=== PATIENT | female | born 1945 | race Caucasian/White ===

== ENCOUNTER 2017-01-10 17:26 | Inpatient (IN) ==
[2017-01-10] MEDS ORDERED: Pantoprazole 40 MG VIAL IVP ONE (19:05)
[2017-01-10] MEDS ORDERED: *HR* HYDROmorphone (PF) 1 MG/ML SYRINGE IVP ONE (19:05)
[2017-01-10] MEDS ORDERED: 0.9 % Sodium Chloride 1,000 ML IVC ONE (19:05)
[2017-01-10] MEDS ORDERED: Ondansetron 4 MG/2 ML VIAL IVP ONE (19:05)
[2017-01-10 19:50] LABS: Basophils # 0.1 K/mcL (0.0-0.2); Basophils % 0.6 %; Eosinophils % 0.1 %; Hematocrit 41.1 % (35.3-44.9); Hemoglobin 13.5 g/dL (11.5-15.4); Immature Granulocytes % 0.7 % (0-4); Lymphocytes # 1.4 K/mcL (0.6-4.6); Lymphocytes % 11.9 %; Mean Corpuscular HGB Conc 32.8 g/dL (31.6-35.5); Mean Corpuscular Hemoglobin 28.5 pg (28.0-33.3); Mean Corpuscular Volume 86.9 fL (83.0-100.0); Mean Platelet Volume 9.6 fL (9.4-12.4); Monocytes # 0.6 K/mcL (0.0-1.3); Monocytes % 4.8 %; Neutrophils # 9.5 K/mcL (1.6-8.9); Platelet Count 354 K/mcL (140-400); Red Blood Count 4.73 M/mcL (3.82-4.97); Red Cell Distribution Width 12.8 % (11.5-14.5); Segmented Neutrophils % 81.9 %
[2017-01-10 20:05] LABS: Alanine Aminotransferase 35 Units/L (0-55); Albumin 3.8 g/dL (3.5-5.0); Alkaline Phosphatase 78 Units/L (38-126); Amylase 23 Units/L (25-125); Aspartate Amino Transferase 35 Units/L (5-34); BUN/Creatinine Ratio 18 (6-26); Bilirubin,Direct 0.2 mg/dL (0.0-0.5); Bilirubin,Indirect 0.4 mg/dL (0.0-1.2); Bilirubin,Total 0.6 mg/dL (0.2-1.2); Blood Urea Nitrogen 19 mg/dL (7-20); Calcium 10.1 mg/dL (8.6-10.8); Carbon Dioxide 23 mEq/L (19-29); Chloride 102 mEq/L (98-109); Glucose 145 mg/dL (70-99); Lipase 7 Units/L (8-78); Osmolality,Calculated 293 (280-300); Potassium 4.2 mEq/L (3.5-4.5); Sodium 139 mEq/L (136-145); Total Protein 7.8 g/dL (6.0-8.3); eGFR For African Americans > 60 (> 60); eGFR For Non-African Americans 51 (> 60)
--- NOTE | 2017-01-10 20:15 | Emergency Department Note ---
Disposition Clinical Impression: Small bowel obstruction Abdominal pain Qualifiers: Abdominal location: lower abdomen, unspecified Qualified Code(s): R10.30 - Lower abdominal pain, unspecified Nausea and vomiting Qualifiers: Vomiting type: unspecified Vomiting Intractability: non-intractable Qualified Code(s): R11.2 - Nausea with vomiting, unspecified Disposition: Admitted As Inpatient Condition: Fair Time of Disposition: 20:48 Abdominal Pain HPI - General Chief Complaint: ED Abdominal Pain Stated Complaint: ABD pain Vomiting Time Seen by Provider: 01/10/17 18:18 Source: patient Nursing Notes Reviewed: Yes Vital Signs Reviewed: Yes - History of Present Illness HPI Narrative: Patient is 71-year-old female complains of abdominal pain across her lower abdomen feels. Patient also complains of nausea and vomiting of acute onset without diarrhea. Patient states his symptoms started 2 days ago at a 4 AM in the morning. Patient states her symptoms resolved and she was fine one day ago. Then symptoms return this morning at 0500 hrs. and has continued since. Denies any hematemesis or melena or hematochezia. Patient does admit to having bloody stools in the past secondary to having a rectal cancer and is being followed by oncology and her PCP. Patient states she had a colonoscopy to the lateral part of last year with no issues. Patient states he has was not resected. Patient has a history of cholecystectomy, patient is unsure whether she has an appendix. Patient denies fevers, chills. Patient states that when the chest pain gets really bad it extends all the anterior chest. Patient also has a history of stonepassed without surgical intervention. Patient denies dysuria Pain Scale: 9 - Related Data Home Medications Medication Instructions Recorded Confirmed Amlodipine [Amlodipine Besylate] 10 mg PO DAILY 08/31/15 11/18/16 Aspirin Enteric Coated [Aspirin EC] 81 mg PO DAILY 08/31/15 11/18/16 Gabapentin [Neurontin] 100 mg PO HS 08/31/15 11/18/16 Lisinopril [Zestril] 40 mg PO HS 08/31/15 11/18/16 Omeprazole [PriLOSEC] 20 mg PO BID 08/31/15 11/18/16 Calcium Carbonate [Calcium] 1,000 mg PO DAILY 05/03/16 11/18/16 Ergocalciferol (VITAMIN D2) 800 unit PO DAILY 05/03/16 11/18/16 [Vitamin D] Ranitidine HCl [Zantac] 150 mg PO HS 05/03/16 11/18/16 Levothyroxine [Synthroid] 25 mcg PO QAM 06/23/16 11/18/16 Oxybutynin Chloride [Ditropan Xl] 10 mg PO HS 06/23/16 11/18/16 Bisoprolol/HCTZ 06/19.25 [Ziac 1 each PO DAILY 11/18/16 11/18/16 106.25] Previous Rx's Medication Instructions Recorded Atorvastatin [Lipitor] 40 mg PO HS #30 tablet 05/04/16 Ferrous Sulfate 325 mg PO BIDWM #60 tablet 06/12/16 Raloxifene [Evista] 60 mg PO DAILY #30 tablet 11/14/16 Allergies Allergy/AdvReac Type Severity Reaction Status Date / Time latex Allergy Hives Verified 11/18/16 09:35 All systems ED: reviewed and negative except as stated. Constitutional: Denies: fever, chills Eyes: Denies: eye pain, vision change ENT ED: Denies: congestion, dysphagia Cardiovascular: Reports: chest pain. Denies: palpitations, syncope Respiratory: Denies: cough, dyspnea, wheezes Gastrointestinal: Reports: abdominal pain, nausea, vomiting. Denies: diarrhea Genitourinary: Denies: urgency, dysuria Musculoskeletal: Denies: back pain, neck pain Neurological: Denies: headache, weakness Psychiatric: Denies: anxiety Abdominal Pain PMH - Past Medical History Medical history: Reports: cancer, hypertension Female Surgical History: Reports: cholecystectomy, hysterectomy [employer] history: Reports: other Psychiatric history: Reports: no psych history - Social History Smoking status: Never smoker Alcohol use: Reports: none Drug use: Reports: none Physical Exam - General Limitations: no limitations General appearance: alert - Head Head exam: atraumatic, normocephalic, normal inspection - Eye Eye exam: Present: normal appearance, PERRL, EOMI. Absent: scleral icterus, conjunctival injection, nystagmus - ENT ENT exam: normal exam, normal oropharynx, mucous membranes moist - Neck Neck exam: Present: normal inspection, full ROM, trachea midline. Absent: tenderness, lymphadenopathy - Chest Chest inspection: Present: normal inspection, symmetric chest wall rise. Absent : tenderness - Respiratory Respiratory exam: Present: normal lung sounds bilaterally. Absent: respiratory distress, wheezes - Cardiovascular Cardiovascular exam: Present: regular rate, normal rhythm - Abdominal Exam Abdominal exam: Present: soft, tenderness Abdominal tenderness: Present: RLQ, LLQ, moderate - Extremities Exam Extremities exam: Present: normal inspection, full ROM, normal capillary refill. Absent: tenderness, pedal edema - Back Exam Back exam: Present: normal inspection, full ROM, tenderness, CVA tenderness (R) . Absent: CVA tenderness (L), muscle spasm - Neurological Exam Neurological exam: Present: alert, oriented X3, CN II-XII intact - Psychiatric Psychiatric exam: Present: normal affect, normal mood - Skin Skin exam: Present: warm, dry, intact, normal color. Absent: pallor, mottled Course - Reevaluation(s) Reevaluation #1: After considering patient's history and exam. Patient is concerning for possible AAA, appendicitis, bowel obstruction secondary to possible neoplasm with history of anal canal cancer, patient also has symptoms of intermittent chest pain as well concerning for ACS/AZ, PE. Patient is currently at risk for coagulopathy given history of cancer but PE is low my differential with other diagnoses to consider that are more likely. Ordered CBC, BMP, chest x-ray, lipase, LFTs, CT abdomen and pelvis without contrast, IV normal saline, Zofran for nausea, 1 mg of Dilaudid for pain. Time: 19:20 Reevaluation #2: Patient well. Patient setting down to CT scan Time: 20:00 Reevaluation #3: Patient CT scan shows small bowel obstruction. We will consult surgery Time: 20:20 Additional Reevaluation(s): NG tube to wall suction was ordered. Patient accepted for admission to hospital. We will have surgical follow-up - Consultations Consultation #1: Dr. Zamora of Gen. surgery was consult and who requests admission for patient to medicine. Advises administering of NG tube wall suction and they will see patient in the morning. Time: 20:31 Consultation #2: Dr. chester to the hospitalist has accepted patient for admission at 2048 hrs. Time: 20:48 Vital Signs Temperature 98.0 F 01/10/17 17:29 Pulse Rate 85 01/10/17 17:29 Respiratory Rate 18 01/10/17 17:29 Blood Pressure 132/69 01/10/17 17:29 O2 Sat by Pulse Oximetry 99 01/10/17 17:29 Temperature 98.0 F 01/10/17 17:29 Pulse Rate 86 01/10/17 21:30 Respiratory Rate 18 01/10/17 21:41 Blood Pressure 152/70 01/10/17 21:41 O2 Sat by Pulse Oximetry 96 01/10/17 21:30 Oxygen Delivery Oxygen Delivery Room Air Abdominal Pain - Medical Records Medical records reviewed: Yes I reviewed the patient's medical records. 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 Result diagrams: 01/10/17 19:43 01/10/17 19:43 Lab Results 01/10/17 01/10/17 01/10/17 Range/Units 19:43 19:43 19:43 WBC 11.6 H (4.3-11.1) K/mcL RBC 4.73 (3.82-4.97) M/mcL Hgb 13.5 (11.5-15.4) g/dL Hct 41.1 (35.3-44.9) % MCV 86.9 (83.0-100.0) fL MCH 28.5 (28.0-33.3) pg MCHC 32.8 (31.6-35.5) g/dL RDW 12.8 (11.5-14.5) % Plt Count 354 (140-400) K/mcL MPV 9.6 (9.4-12.4) fL Immature Gran % 0.7 (0-4) % Seg Neutrophils % 81.9 % Lymphocytes % 11.9 % Monocytes % 4.8 % Eosinophils % 0.1 % Basophils % 0.6 % Neutrophils # 9.5 H (1.6-8.9) K/mcL Lymphocytes # 1.4 (0.6-4.6) K/mcL Monocytes # 0.6 (0.0-1.3) K/mcL Eosinophils # 0.0 (0.0-0.6) K/mcL Basophils # 0.1 (0.0-0.2) K/mcL Sodium 139 (136-145) mEq/L Potassium 4.2 (3.5-4.5) mEq/L Chloride 102 (98-109) mEq/L Carbon Dioxide 23 (19-29) mEq/L BUN 19 (7-20) mg/dL Creatinine 1.07 (0.57-1.11) mg/dL Est GFR ( Amer) > 60 (> 60) Est GFR (Non-Af Amer) 51 L (> 60) BUN/Creatinine Ratio 18 (6-26) Glucose 145 H (70-99) mg/dL Calculated Osmolality 293 (280-300) Lactic Acid 1.9 (0.5-2.2) mmol/L Calcium 10.1 (8.6-10.8) mg/dL Total Bilirubin 0.6 (0.2-1.2) mg/dL Direct Bilirubin 0.2 (0.0-0.5) mg/dL Indirect Bilirubin 0.4 (0.0-1.2) mg/dL AST 35 H (5-34) Units/L ALT 35 (0-55) Units/L Alkaline Phosphatase 78 (38-126) Units/L Troponin I (0-0.03) ng/mL Serum Total Protein 7.8 (6.0-8.3) g/dL Albumin 3.8 (3.5-5.0) g/dL Globulin 4.0 H (2.4-3.5) g/dL Albumin/Globulin Ratio 1.0 L (1.1-2.2) Amylase 23 L (25-125) Units/L Lipase 7 L (8-78) Units/L // Range/Units 19:43 WBC (4.3-11.1) K/mcL RBC (3.82-4.97) M/mcL Hgb (11.5-15.4) g/dL Hct (35.3-44.9) % MCV (83.0-100.0) fL MCH (28.0-33.3) pg MCHC (31.6-35.5) g/dL RDW (11.5-14.5) % Plt Count (140-400) K/mcL MPV (9.4-12.4) fL Immature Gran % (0-4) % Seg Neutrophils % % Lymphocytes % % Monocytes % % Eosinophils % % Basophils % % Neutrophils # (1.6-8.9) K/mcL Lymphocytes # (0.6-4.6) K/mcL Monocytes # (0.0-1.3) K/mcL Eosinophils # (0.0-0.6) K/mcL Basophils # (0.0-0.2) K/mcL Sodium (136-145) mEq/L Potassium (3.5-4.5) mEq/L Chloride (98-109) mEq/L Carbon Dioxide (19-29) mEq/L BUN (7-20) mg/dL Creatinine (0.57-1.11) mg/dL Est GFR ( Amer) (> 60) Est GFR (Non-Af Amer) (> 60) BUN/Creatinine Ratio (6-26) Glucose (70-99) mg/dL Calculated Osmolality (280-300) Lactic Acid (0.5-2.2) mmol/L Calcium (8.6-10.8) mg/dL Total Bilirubin (0.2-1.2) mg/dL Direct Bilirubin (0.0-0.5) mg/dL Indirect Bilirubin (0.0-1.2) mg/dL AST (5-34) Units/L ALT (0-55) Units/L Alkaline Phosphatase (38-126) Units/L Troponin I 0.00 (0-0.03) ng/mL Serum Total Protein (6.0-8.3) g/dL Albumin (3.5-5.0) g/dL Globulin (2.4-3.5) g/dL Albumin/Globulin Ratio (1.1-2.2) Amylase (25-125) Units/L Lipase (8-78) Units/L - Radiology Data Radiology results reviewed: Yes I reviewed the patient's radiology results. Abdomen/Pelvis CT 01/10/17 19:04 IMPRESSION: 1. Small bowel obstruction with transition point located within the right lower quadrant. Critical results were called by Dr. Skip Escobedo MD to Dr. Gallardo on 01/10/2017 at 19:42. D/ / Skip Escobedo MD / Skip Escobedo MD Interpreting Provider: Skip Escobedo MD - EKG Data EKG attestation: Yes I reviewed and interpreted this EKG. EKG results narrative: EKG taken and December 2016 at 1940 hrs. shows a sinus rhythm at a rate of 82 bpm with no acute ST elevations or depressions in any leads. No QRS widening or QT prolongation. There is EKG for comparison taken 08/25/2016 shows sinus rhythm with intermittent PACs no acute ST elevations or depressions any leads. Attestation Statement - Attestation Attestation: I examined this patient and my medical decision-making was reviewed with the DEWER/PA/Advanced Practice Nurse/Resident Physician. I agree with the documented findings, disposition and treatment plan as described except to the extent set forth below. 71-year-old female presents ED because of abdominal pain. She has abdominal pain 2 days ago which spontaneously resolved. She did well yesterday but then again today had recurrence of the same pain which became more diffuse. This is associated with multiple episodes of vomiting. No diarrhea. No fever. No chest pain or dyspnea. No dysuria. Elderly female appears uncomfortable but in no apparent distress. Oropharynx clear mucous membranes moist Neck supple. Chest clear bilaterally. Abdomen hyperactive bowel sounds with distention of the abdomen diffusely. Extremities warm and dry. She was provided with symptomatic relief CT of the abdomen reveals small bowel obstruction with transition point in the right lower quadrant. Case was discussed with on-call surgery who recommended admission to medical service and he will see in consult. NG tube was placed for decompression of the stomach.
[2017-01-10] MEDS ORDERED: Tetracaine/Benzocaine/Butamben 200MG/SPRAY (100SPY/BOT) MM ONE (20:25)
[2017-01-10] MEDS ORDERED: Oxymetazoline Nasal SPRAY BOTTLE NS ONE (20:25)
[2017-01-10 23:01] LABS: Bilirubin,Urine Small (Negative); Blood,Urine Negative (Negative); Clarity,Urine Clear (Clear); Color,Urine Yellow (Yellow); Glucose,Urine (UA) Normal (Normal); Ketones,Urine Negative (Negative); Leukocyte Esterase,Urine Moderate (Negative); Nitrite,Urine Negative (Negative); PH,Urine 6.5 pH Units (5.0-8.0); Protein,Urine Trace mg/dL (Neg-Trace); Specific Gravity,Urine 1.028 (1.010-1.025); Urobilinogen,Urine Normal (Normal)
[2017-01-10 23:02] LABS: Bacteria,Urine None Seen per hpf (None-Few); Hyaline Casts,Urine Few per lpf (None-Few); RBC,Urine 0-3 per hpf (0-3); Squamous Epithelial Cell,Urine Many per lpf (None-Few); WBC,Urine 15-30 per hpf (0-3)
[2017-01-11] MEDS ORDERED: *HR* HYDROmorphone (PF) 1 MG/ML SYRINGE IVP PRN (00:35)
[2017-01-11] MEDS ORDERED: *HR* Promethazine 25 MG/ML VIAL IVP PRN (00:35)
[2017-01-11] MEDS ORDERED: Naloxone 0.4 MG/ML INJ IVP PRN (00:35)
[2017-01-11] MEDS ORDERED: *HR* Metoprolol 5 MG/5 ML VIAL IVP PRN (00:45)
[2017-01-11] MEDS ORDERED: *HR* LORazepam 2 MG/ML VIAL IVP PRN (00:45)
--- NOTE | 2017-01-11 00:49 | Internal Med History&Physical ---
Date of Encounter: 01/11/17 Time of Encounter: 01:00 Assessment and Plan (1) Acute abdominal pain Status: Acute . (2) Small bowel obstruction Status: Acute . (3) Nausea and vomiting Status: Acute . Qualifiers: Vomiting type: unspecified Vomiting Intractability: intractable Qualified Code(s): R11.2 - Nausea with vomiting, unspecified Internal Medicine - H&P: HPI Chief complaint: Abdominal pain nausea vomiting Admitted From: Emergency Dept Plans for Post Hospital Care: Home History of present illness: Ms. Bhatti is a 71 year old female with history significant for hypertension, dyslipidemia, rectal carcinoma status post resection, GERD, OA/OP, hypothyroidism, iron deficiency anemia, COPD-emphysema, valvular heart disease/ endocarditis, obesity, nonsmoker, etc.. The patient is admitted [facility] through the emergency department she presents with complaints of intractable nausea vomiting associated with abdominal pain. Symptoms were acute in onset without associated diarrhea. Denies any current bleeding episodes associated. Onset approximately 2 days prior to this presentation in early hours of the morning about 4 AM. Symptoms seem to spontaneously resolved after an episode of nausea and vomiting. These returned however approximately one day prior to this presentation. The morning of presentation symptoms began at about 5 AM and continued without lessening throughout the day. She underwent a colonoscopy and let apart last year with no issues of note. No pain when present at a 9-10/10 severity. Denied any associated fevers chills sweats. Denies any associated chest pain headache up or lower respiratory complaints flank pain dysuria. She has experienced episodes of constipation as well as episodes of ileus in the past without any interventions. It is in the ED vital signs were stable. Temperature 98 degrees. O2 saturation 99% by pulse oximetry. CBC found WBC 11.6 hemoglobin 13.5 platelets 354,000. Differential showed an increase in neutrophils. Metabolic panel benign. BUN 19 creatinine 1.07 GFR 51. Glucose 145 osmolality 293. Lactic acid 1.9. Hepatic function showed an AST of 35. Albumin 3.8 total 7.8. Amylase 23 lipase 7. Troponin 0.00. [address] abdomen and pelvis without contrast demonstrated small bowel obstruction with transition point located within the right lower quadrant. EKG sinus rhythm at a rate of 82. No acute ST-T wave changes or arrhythmia. Preliminary impressions suggest acute small bowel obstruction. Systemic inflammatory response syndrome criteria are present at the time of admission. She is not acutely toxic. The patient does present a risk for acute clinical decline and morbidity given age, presenting chief concerns, findings and comorbidities. Workup and treatment will proceed comprehensively. The patient was visited and interviewed and examined. Cumulative laboratory and radiographic data base will be considered and discussed. Pertinent ancillary medical records including ECW and PCI documentation when available was reviewed and considered. Given the patient's presenting concerns, past medical history, clinical findings and symptoms, she is admitted at this time will undergo further evaluation and disposition. Orders were written as per the computerized physician blood bank order control clerk system.......................................................................... .................... Consultative opinions will be sought as clinical circumstances justify. Initial consultative opinion has been requested of general surgery. Pain management needs will be addressed. Laboratory= radiographic data base will be updated as appropriate. Studies include: Cultures of blood urine sputum, pt/inr,aptt,ddimer, cardiac injury panel, BNP, troponin metabolic and hematologic panel, magnesium phosphorus, ionized calcium, thyroid panel lipid profile, A1c C-peptide, CRP sedimentation rate, respiratory infection profile, respiratory virus panel, blood gas, lactic acid, serologies, etc. Precautions: Aspiration, fall, delirium protocol/surveillance initiated. Telemetry with continuous hemodynamic monitoring and pulse oximetry initiated. Nasogastric tube at low intermittent suction spent declined by patient. Bowel rest imposed. Nothing per mouth/ice chips... Sips of water with mandatory medications only.... Anti-emetics, prokinetic, probiotic therapy initiated. Fluid rehydration therapy... PUD prophylaxis initiated. Empiric antibiotic coverage:pending diagnostic/culture data. Special studies: CT chest/abd-pelvis, chest x-ray, telemetry, EKG. Pulmonary toilet: Incentive spirometry. PRN: aerosol bronchodilator, mucolytic, antitussive. Supplemental oxygen. Corticosteroid therapy PRN. CPAP/BiPAP supplemental oxygen deliveryPRN. Aerosol Mucomyst therapy PRN. Fluid and electrolyte repletion efforts will proceed. Careful attention to fluid balance and renal recovery will be emphasized. Avoidance of nephrotoxic exposure and adverse drug drug interaction in the setting of impaired renal function will be monitored closely. Acute coronary syndrome protocol/surveillance initiated. DVT and PUD prophylaxis initiated: PPI therapy, intermittent pneumatic cuffs. Subcutaneous heparin/Lovenox. Early ambulation will be encouraged. Immunization updates recommended. Influenza and pneumococcal vaccinations as part of ongoing preventative healthcare recommendations strongly recommended. Smoking cessation counseling briefly addressed. Patient is a nonsmoker. Advanced care directive discussion briefly addressed. Patient does not declare any healthcare restrictions at this time. Cardiovascular risk appraisal and cardiovascular risk reduction efforts will be emphasized. Physical =occupational therapy may be counseled to evaluate patient's functional capacity and progress mobility if her circumstances justify. Nutrition/dietary education and complementary diet counseling may be considered as circumstances justify. Outpatient medication schedules will be reviewed, confirmed and facilitated as appropriate. Reconciliation of home treatments including adjustments, substitutions and reintroduction into the treatment regimen will address necessary maintenance therapies for chronic pre-existing medical conditions. Plan of care has been reviewed and discussed in detail with the patient. Questions addressed. Hospital course dictated by clinical findings, treatment response and potential consultative interventions. Patient is at risk for further acute clinical decline due to her age, presenting chief complaints and comorbid conditions. Condition is serious. Prognosis is guarded. CODE STATUS is full. Past Med Surg Social Fam HX - Past Medical History Source: old records reviewed Medical history: arthritis, cancer (Surgical resection of rectal carcinoma followed by chemotherapy and radiation therapy.), cardiomyopathy, COPD ( Emphysema.), GERD, GI bleed (History of H. pylori infection-gastritis.), hyperlipidemia, hypertension, kidney stones, liver disease (Fatty liver.), osteoporosis (Vit D def.), renal disease, thyroid disease, valvular heart disease, other (RLS. Iron def anemia. Probable parafalcine meningioma.) Psychiatric history: no psych history, other - Past Surgical History Surgical History: , cancer surgery (Resection of poorly differentiated carcinoma, basaloid squamous cell cancer.), cholecystectomy, hysterectomy, other (Colonoscopy with polypectomy. EGD.) - Social History Smoking Status: Never smoker Smokeless Tobacco Status: No Alcohol use: none Drug use: none Occupational status: unemployed Current living situation: Home, With Family Activity Level: Independent ambulation, Mostly sedentary Recent Out of Country Travel Within the Last 8 Weeks: No Exposure or Possible Exposure to Illness During Travel: No - Family History Mother Living Status: Age at : 86 Cause of : stroke Hx Family Cardiac Disorders: Yes (HTN) Hx Family Respiratory Disorders: Yes (copd) Internal Medicine - H&P: Meds Amlodipine [Amlodipine Besylate] 10 mg PO DAILY 08/31/15 [History] Aspirin Enteric Coated [Aspirin EC] 81 mg PO DAILY 08/31/15 [History] Gabapentin [Neurontin] 100 mg PO HS 08/31/15 [History] Lisinopril [Zestril] 40 mg PO HS 08/31/15 [History] Omeprazole [PriLOSEC] 20 mg PO BID 08/31/15 [History] Calcium Carbonate [Calcium] 1,000 mg PO DAILY 05/03/16 [History] Ergocalciferol (VITAMIN D2) [Vitamin D] 800 unit PO DAILY 05/03/16 [History] Ranitidine HCl [Zantac] 150 mg PO HS 05/03/16 [History] Ferrous Sulfate 325 mg PO BIDWM #60 tablet 06/12/16 [Rx] Levothyroxine [Synthroid] 25 mcg PO QAM 06/23/16 [History] Oxybutynin Chloride [Ditropan Xl] 10 mg PO HS 06/23/16 [History] Raloxifene [Evista] 60 mg PO DAILY #30 tablet 11/14/16 [Rx] Bisoprolol/HCTZ 106.25 [Ziac 6.25] 1 tab PO DAILY 11/18/16 [History] Cetirizine HCl [All Day Allergy] 10 mg PO DAILY 01/11/17 [History] Docusate [Colace] 100 mg PO BID PRN #60 capsule 01/13/17 [Rx] Allergies latex Allergy (Verified 11/18/16 09:35) Hives All Systems PM: A 10-system review of systems was performed and is negative for pertinent findings except as documented above in the HPI. - Constitutional Constitutional: as per HPI, fatigue, malaise, no chills, no fever(s), no night sweats - EENT Eyes: as per HPI, no change in vision, no discharge, no pain, no photophobia Nose, mouth and throat: as per HPI, no dysphagia, no nasal discharge, no neck pain, no sore throat - Cardiovascular Cardiovascular ROS IM: as per HPI, no chest pain, no diaphoresis, no dyspnea, no lightheadedness, no palpitations, no syncope - Respiratory Respiratory: as per HPI, no cough, no dyspnea, no wheezing, no excessive phlegm production - Gastrointestinal Gastrointestinal: as per HPI, abdominal pain, bloating, change in bowel habits, cramping, early satiety, nausea, vomiting, no coffee ground emesis, no diarrhea , no hematemesis, no hematochezia, no melena - Genitourinary Genitourinary: as per HPI, no change in urinary stream, no dysuria, no flank pain, no hematuria - Musculoskeletal Musculoskeletal ROS IM: as per HPI, no numbness, no tingling - Integumentary Integumentary IM: as per HPI, no rash, no unusual bruising - Neurological Neurological ROS: as per HPI, no confusion, no convulsions, no focal weakness, no numbness, no tingling, no tremor(s) - Psychiatric Psychiatric: as per HPI - Endocrine Endocrine IM: as per HPI - Hematologic/Lymphatic Hematologic/Lymphatic: as per HPI, no easy bruising - Allergic/Immunologic Allergic/Immunologic: as per HPI - Constitutional Vitals: Temp Pulse Resp BP Pulse Ox 98.1 F 74 18 130/64 94 01/10/17 22:58 01/10/17 22:58 01/10/17 22:58 01/10/17 22:58 01/10/17 22:58 Vital Signs Temp Pulse Resp BP Pulse Ox 01/10/17 22:58 98.1 F 74 18 130/64 94 01/10/17 21:41 18 152/70 01/10/17 21:30 86 18 112/54 96 01/10/17 19:33 86 18 160/77 99 01/10/17 17:29 98.0 F 85 18 132/69 99 Intake and Output 01/10/17 01/10/17 01/11/17 15:59 23:59 07:59 Intake Total 1000 / 1000 Output Total 100 / 100 Balance 900 / 900 Intake: IV Fluids 1000 / 1000 0.9 % Sodium Chloride 1, 1000 / 1000 000 ML @ 3750 mls/hr IVC .Q16M ONE Rx#:[id number] Oral 0 / 0 Output: Urine 100 / 100 Other: Stool Characteristics Normal for Patient Weight 80.92 kg Blood Glucose* 118 General appearance: Present: mild distress, A&O X 3, obese, answers questions appropriately - Head Head exam: Present: atraumatic, normocephalic - Eye Eye exam: Present: PERRL, conjuntiva pink, sclera anicteric Pupils: Present: normal accommodation, PERRL - ENT ENT exam: Present: mucous membranes moist, normal oropharynx - Neck Neck exam general surgery: Present: supple, trachea midline. Absent: lymphadenopathy - Respiratory Respiratory exam: Present: decreased breath sounds, CTAB. Absent: accessory muscle use, rales, rhonchi, wheezes - Cardiovascular Cardiovascular exam: Present: distant heart sounds, RRR, +S1, +S2. Absent: diastolic murmur, gallop, rubs, systolic murmur - GI/Abdominal GI/Abdominal exam: Present: normal bowel sounds, soft, tenderness (Lower abdominal tenderness), no peritoneal signs. Absent: distended - Extremities Exam Extremities exam: Present: warm, radial pulses palpable and symetrical. Absent : calf tenderness, cyanotic, pedal edema - Neurological Exam Neurological exam: Present: alert, CN II-XII intact, oriented X3, no focal deficits. Absent: pronater drift, facial droop, speech deficit - Psychiatric Psychiatric exam: Present: normal affect, normal mood - Skin Skin exam: Present: dry, intact, warm Internal Med - H&P Results - Labs CBC & Chem 7: 01/13/17 05:26 01/13/17 05:26 Labs: Urine 01/10/17 Range/Units 22:40 Urine Color Yellow (Yellow) Urine Clarity Clear (Clear) Urine pH 6.5 (5.0-8.0) pH Units Ur Specific [place] 1.028 H (1.010-1.025) Urine Protein Trace (Neg-Trace) mg/dL Urine Glucose (UA) Normal (Normal) mg/dL Short CBC 01/10/17 Range/Units 19:43 WBC 11.6 H (4.3-11.1) K/mcL Hgb 13.5 (11.5-15.4) g/dL Hct 41.1 (35.3-44.9) % Plt Count 354 (140-400) K/mcL Neutrophils # 9.5 H (1.6-8.9) K/mcL BMP 01/10/17 Range/Units 19:43 Sodium 139 (136-145) mEq/L Potassium 4.2 (3.5-4.5) mEq/L Chloride 102 (98-109) mEq/L Carbon Dioxide 23 (19-29) mEq/L BUN 19 (7-20) mg/dL Creatinine 1.07 (0.57-1.11) mg/dL Glucose 145 H (70-99) mg/dL Calcium 10.1 (8.6-10.8) mg/dL Cardiac Enzymes 01/10/17 Range/Units 19:43 Troponin I 0.00 (0-0.03) ng/mL Liver Function 01/10/17 Range/Units 19:43 Total Bilirubin 0.6 (0.2-1.2) mg/dL Direct Bilirubin 0.2 (0.0-0.5) mg/dL AST 35 H (5-34) Units/L ALT 35 (0-55) Units/L Alkaline Phosphatase 78 (38-126) Units/L Albumin 3.8 (3.5-5.0) g/dL Urine 01/10/17 Range/Units 22:40 Urine Color Yellow (Yellow) Urine Clarity Clear (Clear) Urine pH 6.5 (5.0-8.0) pH Units Ur Specific [place] 1.028 H (1.010-1.025) Urine Protein Trace (Neg-Trace) mg/dL Urine Glucose (UA) Normal (Normal) mg/dL Abnormal lab results WBC 11.6 K/mcL (4.3-11.1) H 01/10/17 19:43 Neutrophils # 9.5 K/mcL (1.6-8.9) H 01/10/17 19:43 Est GFR (Non-Af Amer) 51 (> 60) L 01/10/17 19:43 Glucose 145 mg/dL (70-99) H 01/10/17 19:43 POC Glucose 118 (58-89) H 01/10/17 23:38 AST 35 Units/L (5-34) H 01/10/17 19:43 Globulin 4.0 g/dL (2.4-3.5) H 01/10/17 19:43 Albumin/Globulin Ratio 1.0 (1.1-2.2) L 01/10/17 19:43 Amylase 23 Units/L (25-125) L 01/10/17 19:43 Lipase 7 Units/L (8-78) L 01/10/17 19:43 Ur Specific [place] 1.028 (1.010-1.025) H 01/10/17 22:40 Urine Bilirubin Small (Negative) H 01/10/17 22:40 Ur Leukocyte Esterase Moderate (Negative) H 01/10/17 22:40 Urine Microscopic WBC 15-30 per hpf (0-3) H 01/10/17 22:40 Ur Squamous Epith Cells Many per lpf (None-Few) H 01/10/17 22:40 Ur Culture Indicated? YES (NO) A 01/10/17 22:40 Laboratory Results WBC 11.6 K/mcL (4.3-11.1) H 01/10/17 19:43 RBC 4.73 M/mcL (3.82-4.97) 01/10/17 19:43 Hgb 13.5 g/dL (11.5-15.4) 01/10/17 19:43 Hct 41.1 % (35.3-44.9) 01/10/17 19:43 MCV 86.9 fL (83.0-100.0) 01/10/17 19:43 MCH 28.5 pg (28.0-33.3) 01/10/17 19:43 MCHC 32.8 g/dL (31.6-35.5) 01/10/17 19:43 RDW 12.8 % (11.5-14.5) 01/10/17 19:43 Plt Count 354 K/mcL (140-400) 01/10/17 19:43 MPV 9.6 fL (9.4-12.4) 01/10/17 19:43 Immature Gran % 0.7 % (0-4) 01/10/17 19:43 Seg Neutrophils % 81.9 % 01/10/17 19:43 Lymphocytes % 11.9 % 01/10/17 19:43 Monocytes % 4.8 % 01/10/17 19:43 Eosinophils % 0.1 % 01/10/17 19:43 Basophils % 0.6 % 01/10/17 19:43 Neutrophils # 9.5 K/mcL (1.6-8.9) H 01/10/17 19:43 Lymphocytes # 1.4 K/mcL (0.6-4.6) 01/10/17 19:43 Monocytes # 0.6 K/mcL (0.0-1.3) 01/10/17 19:43 Eosinophils # 0.0 K/mcL (0.0-0.6) 01/10/17 19:43 Basophils # 0.1 K/mcL (0.0-0.2) 01/10/17 19:43 Sodium 139 mEq/L (136-145) 01/10/17 19:43 Potassium 4.2 mEq/L (3.5-4.5) 01/10/17 19:43 Chloride 102 mEq/L (98-109) 01/10/17 19:43 Carbon Dioxide 23 mEq/L (19-29) 01/10/17 19:43 BUN 19 mg/dL (7-20) 01/10/17 19:43 Creatinine 1.07 mg/dL (0.57-1.11) 01/10/17 19:43 Est GFR ( Amer) > 60 (> 60) 01/10/17 19:43 Est GFR (Non-Af Amer) 51 (> 60) L 01/10/17 19:43 BUN/Creatinine Ratio 18 (6-26) 01/10/17 19:43 Glucose 145 mg/dL (70-99) H 01/10/17 19:43 POC Glucose 118 (58-89) H 01/10/17 23:38 Calculated Osmolality 293 (280-300) 01/10/17 19:43 Lactic Acid 1.9 mmol/L (0.5-2.2) 01/10/17 19:43 Calcium 10.1 mg/dL (8.6-10.8) 01/10/17 19:43 Total Bilirubin 0.6 mg/dL (0.2-1.2) 01/10/17 19:43 Direct Bilirubin 0.2 mg/dL (0.0-0.5) 01/10/17 19:43 Indirect Bilirubin 0.4 mg/dL (0.0-1.2) 01/10/17 19:43 AST 35 Units/L (5-34) H 01/10/17 19:43 ALT 35 Units/L (0-55) 01/10/17 19:43 Alkaline Phosphatase 78 Units/L (38-126) 01/10/17 19:43 Troponin I 0.00 ng/mL (0-0.03) 01/10/17 19:43 Serum Total Protein 7.8 g/dL (6.0-8.3) 01/10/17 19:43 Albumin 3.8 g/dL (3.5-5.0) 01/10/17 19:43 Globulin 4.0 g/dL (2.4-3.5) H 01/10/17 19:43 Albumin/Globulin Ratio 1.0 (1.1-2.2) L 01/10/17 19:43 Amylase 23 Units/L (25-125) L 01/10/17 19:43 Lipase 7 Units/L (8-78) L 01/10/17 19:43 Urine Color Yellow (Yellow) 01/10/17 22:40 Urine Clarity Clear (Clear) 01/10/17 22:40 Urine pH 6.5 pH Units (5.0-8.0) 01/10/17 22:40 Ur Specific [place] 1.028 (1.010-1.025) H 01/10/17 22:40 Urine Protein Trace mg/dL (Neg-Trace) 01/10/17 22:40 Urine Glucose (UA) Normal mg/dL (Normal) 01/10/17 22:40 Urine Ketones Negative mg/dL (Negative) 01/10/17 22:40 Urine Blood Negative (Negative) 01/10/17 22:40 Urine Nitrite Negative (Negative) 01/10/17 22:40 Urine Bilirubin Small (Negative) H 01/10/17 22:40 Urine Urobilinogen Normal mg/dL (Normal) 01/10/17 22:40 Ur Leukocyte Esterase Moderate (Negative) H 01/10/17 22:40 Urine Microscopic RBC 0-3 per hpf (0-3) 01/10/17 22:40 Urine Microscopic WBC 15-30 per hpf (0-3) H 01/10/17 22:40 Ur Squamous Epith Cells Many per lpf (None-Few) H 01/10/17 22:40 Urine Bacteria None Seen per hpf (None-Few) 01/10/17 22:40 Hyaline Casts Few per lpf (None-Few) 01/10/17 22:40 Ur Culture Indicated? YES (NO) A 01/10/17 22:40 Impressions Abdomen/Pelvis CT 01/10/17 19:04 IMPRESSION: 1. Small bowel obstruction with transition point located within the right lower quadrant. Critical results were called by Dr. Skip Escobedo MD to Dr. Gallardo on 01/10/2017 at 19:42. D/ / Skip Escobedo MD / Skip Escobedo MD Interpreting Provider: Skip Escobedo MD
[2017-01-11] MEDS ORDERED: Promethazine 12.5 MG in 0.9 % Sodium Chloride 50 ML IVPB PRN (01:00)
[2017-01-11 01:13] LABS: Hematocrit 34.4 % (35.3-44.9); Hemoglobin 11.4 g/dL (11.5-15.4); Mean Corpuscular HGB Conc 33.1 g/dL (31.6-35.5); Mean Corpuscular Hemoglobin 29.1 pg (28.0-33.3); Mean Corpuscular Volume 87.8 fL (83.0-100.0); Mean Platelet Volume 9.9 fL (9.4-12.4); Platelet Count 297 K/mcL (140-400); Red Blood Count 3.92 M/mcL (3.82-4.97); Red Cell Distribution Width 12.9 % (11.5-14.5)
[2017-01-11 01:20] LABS: VBG HCO3 26.6 mEq/L (21-27); VBG PH 7.42 pH Units (7.32-7.42)
[2017-01-11 01:28] LABS: Ionized Calcium 1.2 mmol/L (1.15-1.35)
[2017-01-11 01:29] LABS: BUN/Creatinine Ratio 20 (6-26); Blood Urea Nitrogen 20 mg/dL (7-20); Carbon Dioxide 24 mEq/L (19-29); Chloride 107 mEq/L (98-109); Chol/HDL Ratio 6.2 (0-4.9); Cholesterol 168 mg/dL (< 200); Glucose 127 mg/dL (70-99); HDL Cholesterol 27 mg/dL (40-59); LDL Cholesterol,Calculated 92 mg/dL (0-99); Osmolality,Calculated 294 (280-300); Phosphorous 3.8 mg/dL (2.3-4.7); Sodium 140 mEq/L (136-145); Triglycerides 245 mg/dL (< 150); eGFR For African Americans > 60 (> 60); eGFR For Non-African Americans 54 (> 60)
[2017-01-11] MEDS: Ringers Solution, Lactated 1,000 ML IVC SCH ×3 (01:35→21:25)
[2017-01-11 02:03] LABS: Hemoglobin A1C 6.4 %
[2017-01-11] MEDS: Pantoprazole 40 MG VIAL IVP SCH ×2 (09:29→21:25)
--- NOTE | 2017-01-11 10:01 | General Surgery Consult Note ---
Date of Encounter: 01/11/17 Time of Encounter: 09:59 Assessment and Plan (1) Partial small bowel obstruction Current Visit: Yes Status: Acute I explained to the patient that given the fact that she is has watery stool I think it would be okay to continue to monitor without any NG tube. If she starts to have nausea and vomiting then she will need to have an NG tube placed. I agree with conservative measures with nothing by mouth and continued IV fluid hydration. Serial abdominal exams and will continue to follow with you. History of Present Illness Consult date: 01/11/17 Reason for consult: other (PSBO) Requesting physician: Randy Gallardo History of present illness: The patient is a 71 year old female with a past medical history significant for anal cancer which was treated with the Erick protocol of chemotherapy and radiation therapy presents to [facility] [place] with a 2 to three- day history of abdominal distention with nausea and vomiting. Admits to abdominal pain as well and was not able to tolerate eating any type of foods or drinking any liquids. She presented to the emergency room yesterday evening and currently states that she feels better compared to yesterday. Her last dosage of nausea medication was yesterday and although an attempt at placement of an NG tube was made and was unsuccessful due to discomfort in the nasal cavity. States that she did have some diarrhea this morning without any rectal bleeding. Past Med Surg Social Fam HX - Past Medical History Medical history: arthritis, cancer (Surgical resection of rectal carcinoma followed by chemotherapy and radiation therapy.), cardiomyopathy, COPD ( Emphysema.), GERD, GI bleed (History of H. pylori infection-gastritis.), hyperlipidemia, hypertension, kidney stones, liver disease (Fatty liver.), osteoporosis (Vit D def.), renal disease, thyroid disease, valvular heart disease, other (RLS. Iron def anemia. Probable parafalcine meningioma.) Psychiatric history: no psych history, other - Past Surgical History Surgical History: , cancer surgery (Resection of poorly differentiated carcinoma, basaloid squamous cell cancer.), cholecystectomy, hysterectomy, other (Colonoscopy with polypectomy. EGD.) - Social History Smoking Status: Never smoker Smokeless Tobacco Status: No Alcohol use: none Drug use: none - Family History Mother Living Status: Age at : 86 Cause of : stroke Hx Family Cardiac Disorders: Yes (HTN) Hx Family Respiratory Disorders: Yes (copd) Medications and Allergies Amlodipine [Amlodipine Besylate] 10 mg PO DAILY 08/31/15 [History] Aspirin Enteric Coated [Aspirin EC] 81 mg PO DAILY 08/31/15 [History] Gabapentin [Neurontin] 100 mg PO HS 08/31/15 [History] Lisinopril [Zestril] 40 mg PO HS 08/31/15 [History] Omeprazole [PriLOSEC] 20 mg PO BID 08/31/15 [History] Calcium Carbonate [Calcium] 1,000 mg PO DAILY 05/03/16 [History] Ergocalciferol (VITAMIN D2) [Vitamin D] 800 unit PO DAILY 05/03/16 [History] Ranitidine HCl [Zantac] 150 mg PO HS 05/03/16 [History] Ferrous Sulfate 325 mg PO BIDWM #60 tablet 06/12/16 [Rx] Levothyroxine [Synthroid] 25 mcg PO QAM 06/23/16 [History] Oxybutynin Chloride [Ditropan Xl] 10 mg PO HS 06/23/16 [History] Raloxifene [Evista] 60 mg PO DAILY #30 tablet 11/14/16 [Rx] Bisoprolol/HCTZ 10/6.25 [Ziac 10/6.25] 1 tab PO DAILY 11/18/16 [History] Cetirizine HCl [All Day Allergy] 10 mg PO DAILY 01/11/17 [History] Allergies latex Allergy (Verified 11/18/16 09:35) Hives Review of Systems All systems PM: reviewed and no additional remarkable complaints except as stated All systems PM: A 10-system review of systems was performed and is negative for pertinent findings except as documented above in the HPI. General Surgery Exam Initial Vital Signs Temp Pulse Resp BP Pulse Ox 98.0 F 85 18 132/69 99 01/10/17 17:29 01/10/17 17:29 01/10/17 17:29 01/10/17 17:29 01/10/17 17:29 - Eyes PERRL, normal ocular movement - Neck no masses, trachea midline, no lymphadectomy - Respiratory normal expansion, normal respiratory effort, clear to auscultation (decreased breath sounds at the bases) - Cardiovascular Cardiovascular exam: Present: RRR, no murmurs/rubs/gallops - Abdomen Abdomen general surgery: Present: soft (distended, scant powel sounds. Tympany noted. Mild pain to palpation. No incisional hernia noted.) - Integumentary Integumentary general surgery: Present: warm and dry - Neurologic Present: CN 2-12 grossly intact - Musculoskeletal Present: other (No clubbing, cyanosis, or edema) - Psychiatric Psychiatric general surgery: Present: A&Ox3, oriented to person, oriented to place, oriented to time Exam Initial Vital Signs Temp Pulse Resp BP Pulse Ox 98.0 F 85 18 132/69 99 01/10/17 17:29 01/10/17 17:29 01/10/17 17:29 01/10/17 17:29 01/10/17 17:29 Results - Labs 01/11/17 01:01 01/11/17 01:01 Abnormal lab results Hgb 11.4 g/dL (11.5-15.4) L D 01/11/17 01:01 Hct 34.4 % (35.3-44.9) L 01/11/17 01:01 Neutrophils # 9.5 K/mcL (1.6-8.9) H 01/10/17 19:43 ESR 19 mm/hr (0-15) H 01/11/17 01:01 VBG pO2 59 mmHg (25-40) H 01/11/17 01:01 Est GFR (Non-Af Amer) 54 (> 60) L 01/11/17 01:01 Glucose 127 mg/dL (70-99) H 01/11/17 01:01 POC Glucose 118 (58-89) H 01/11/17 06:00 Hemoglobin A1c 6.4 % (-5.6) H 01/11/17 01:01 AST 35 Units/L (5-34) H 01/10/17 19:43 C-Reactive Protein 10 mg/L (Less than 5) H 01/11/17 01:01 Globulin 4.0 g/dL (2.4-3.5) H 01/10/17 19:43 Albumin/Globulin Ratio 1.0 (1.1-2.2) L 01/10/17 19:43 Triglycerides 245 mg/dL (< 150) H 01/11/17 01:01 VLDL Cholesterol, Calc 49 mg/dL (< 31) H 01/11/17 01:01 HDL Cholesterol 27 mg/dL (40-59) L 01/11/17 01:01 Cholesterol/HDL Ratio 6.2 (0-4.9) H 01/11/17 01:01 Amylase 23 Units/L (25-125) L 01/10/17 19:43 Lipase 7 Units/L (8-78) L 01/10/17 19:43 Ur Specific [place] 1.028 (1.010-1.025) H 01/10/17 22:40 Urine Bilirubin Small (Negative) H 01/10/17 22:40 Ur Leukocyte Esterase Moderate (Negative) H 01/10/17 22:40 Urine Microscopic WBC 15-30 per hpf (0-3) H 01/10/17 22:40 Ur Squamous Epith Cells Many per lpf (None-Few) H 01/10/17 22:40 Ur Culture Indicated? YES (NO) A 01/10/17 22:40 Diabetes panel 01/11/17 01/11/17 Range/Units 01:01 01:01 Sodium 140 (136-145) mEq/L Potassium 4.0 (3.5-4.5) mEq/L Chloride 107 (98-109) mEq/L Carbon Dioxide 24 (19-29) mEq/L BUN 20 (7-20) mg/dL Creatinine 1.02 (0.57-1.11) mg/dL Glucose 127 H (70-99) mg/dL Hemoglobin A1c 6.4 H ( - 5.6) % Calcium 9.0 (8.6-10.8) mg/dL Triglycerides 245 H (< 150) mg/dL HDL Cholesterol 27 L (40-59) mg/dL Thyroid panel 01/11/17 Range/Units 01:01 TSH 2.856 (0.350-4.840) mcIU/mL Calcium panel 01/11/17 Range/Units 01:01 Calcium 9.0 (8.6-10.8) mg/dL Phosphorus 3.8 (2.3-4.7) mg/dL Pituitary panel 01/11/17 01/11/17 Range/Units 01:01 01:01 Sodium 140 (136-145) mEq/L Potassium 4.0 (3.5-4.5) mEq/L Chloride 107 (98-109) mEq/L Carbon Dioxide 24 (19-29) mEq/L BUN 20 (7-20) mg/dL Creatinine 1.02 (0.57-1.11) mg/dL Glucose 127 H (70-99) mg/dL Calcium 9.0 (8.6-10.8) mg/dL TSH 2.856 (0.350-4.840) mcIU/mL Adrenal panel 01/11/17 Range/Units 01:01 Sodium 140 (136-145) mEq/L Potassium 4.0 (3.5-4.5) mEq/L Chloride 107 (98-109) mEq/L Carbon Dioxide 24 (19-29) mEq/L BUN 20 (7-20) mg/dL Creatinine 1.02 (0.57-1.11) mg/dL Glucose 127 H (70-99) mg/dL Calcium 9.0 (8.6-10.8) mg/dL All other labs normal. - Imaging CT scan - abdomen: report reviewed, image reviewed (Distention of the small bowel with air-fluid levels. No free air. No free fluid. Is collapsed.) Consult Discharge Plan - Plan Referrals: Victor Hugo Fernandez DO [Primary Care Provider] -
--- NOTE | 2017-01-11 17:59 | Electrocardiograph Report ---
[place] [id number] Test Date: 2017-01-10 Pat Name: Kenzie Bhatti Department: 104 Room: 3A23 Gender: F [place] Sander: [facility] : 1945 Requested By: Edgar Marcos Order Number: [id number] Reading MD: Nichelle Leyva Measurements Intervals [place] Rate: 82 P: 33 MA: 131 QRS: -44 QRSD: 92 T: 48 QT: 360 QTc: 399 Interpretive Statements SINUS RHYTHM MARKED LEFT AXIS DEVIATION PATTERN CONSISTENT WITH PULMONARY DISEASE VOLTAGE CRITERIA FOR LVH Electronically Signed On 01-11-2017 17:57:29 EDT by Nichelle Leyva
--- NOTE | 2017-01-11 18:20 | Internal Med Progress Note ---
Date of Encounter: 01/11/17 Time of Encounter: 11:16 - Assessment and plan (1) DVT prophylaxis Current Visit: No Status: Acute Assessment and plan: SCDs (2) Small bowel obstruction Current Visit: Yes Status: Acute Assessment and plan: Nothing by mouth. IV fluids. IV Zofran. IV Protonix for GI prophylaxis. IV Dilaudid for abdominal pain. The patient is at high risk for morbidity mortality and complications due to treatment with IV controlled substances. (3) Abdominal pain Current Visit: Yes Status: Acute Assessment and plan: IV Dilaudid. Qualifiers: Abdominal location: lower abdomen, unspecified Qualified Code(s): R10.30 - Lower abdominal pain, unspecified (4) Nausea and vomiting Current Visit: Yes Status: Acute Qualifiers: Vomiting type: unspecified Vomiting Intractability: intractable Qualified Code(s): R11.2 - Nausea with vomiting, unspecified (5) Essential hypertension Current Visit: Yes Status: Acute Assessment and plan: Hold oral antihypertensive medication since the patient has no oral intake and use IV hydralazine as needed for systolic blood pressure greater than 185 or diastolic greater than 90. - Subjective Interval history: Patient presented to the hospital last night for nausea vomiting and abdominal abdominal pain. She had a NG tube placed. Currently should says that her nausea and vomiting has resolved, NG tube was discontinued. Denies fevers chills. Denies abdominal pain chest pain cough or shortness of breath. - Constitutional Vitals: Temp Pulse Resp BP Pulse Ox 98.1 F 89 18 127/61 95 01/11/17 14:17 01/11/17 14:17 01/11/17 14:17 01/11/17 14:17 01/11/17 14:17 - Eye Eye exam: Present: PERRL, conjuntiva pink, sclera anicteric Pupils: Present: PERRL - Respiratory Respiratory exam: Present: CTAB. Absent: accessory muscle use, rales, rhonchi, wheezes - Cardiovascular Cardiovascular exam: Present: RRR, +S1, +S2. Absent: diastolic murmur, gallop, rubs, systolic murmur - GI/Abdominal GI/Abdominal exam: Present: normal bowel sounds, soft, no peritoneal signs. Absent: distended, tenderness - Extremities Exam Extremities exam: Present: warm, radial pulses palpable and symetrical. Absent : calf tenderness, cyanotic, pedal edema Internal Medicine: Result - Labs CBC & Chem 7: 01/11/17 01:01 01/11/17 01:01 Labs: Short CBC 01/11/17 Range/Units 01:01 WBC 10.4 (4.3-11.1) K/mcL Hgb 11.4 L D (11.5-15.4) g/dL Hct 34.4 L (35.3-44.9) % Plt Count 297 (140-400) K/mcL BMP 01/11/17 01:01 Sodium 140 Potassium 4.0 Chloride 107 Carbon Dioxide 24 BUN 20 Creatinine 1.02 Glucose 127 H Calcium 9.0 Urine 01/10/17 Range/Units 22:40 Urine Color Yellow (Yellow) Urine Clarity Clear (Clear) Urine pH 6.5 (5.0-8.0) pH Units Ur Specific [place] 1.028 H (1.010-1.025) Urine Protein Trace (Neg-Trace) mg/dL Urine Glucose (UA) Normal (Normal) mg/dL Consult Discharge Plan - Plan Referrals: Victor Hugo Fernandez DO [Primary Care Provider] -
[2017-01-11] MEDS ORDERED: 0.9 % Sodium Chloride 1,000 ML IVC SCH (18:30)
[2017-01-12] MEDS ORDERED: Ketorolac 15 MG/ML VIAL IVP ONE (00:30)
[2017-01-12] MEDS ORDERED: Acetaminophen 325 MG TABLET PO ONE (00:30)
[2017-01-12] MEDS ORDERED: Acetaminophen 325 MG TABLET PO PRN (04:00)
[2017-01-12 04:17] LABS: Basophils # 0.1 K/mcL (0.0-0.2); Basophils % 1.2 %; Eosinophils # 0.2 K/mcL (0.0-0.6); Eosinophils % 4.1 %; Hematocrit 30.6 % (35.3-44.9); Hemoglobin 10.2 g/dL (11.5-15.4); Immature Granulocytes % 1.6 % (0-4); Lymphocytes # 1.8 K/mcL (0.6-4.6); Lymphocytes % 31.2 %; Mean Corpuscular HGB Conc 33.3 g/dL (31.6-35.5); Mean Corpuscular Hemoglobin 29.3 pg (28.0-33.3); Mean Corpuscular Volume 87.9 fL (83.0-100.0); Mean Platelet Volume 9.9 fL (9.4-12.4); Monocytes # 0.4 K/mcL (0.0-1.3); Monocytes % 6.7 %; Neutrophils # 3.1 K/mcL (1.6-8.9); Platelet Count 245 K/mcL (140-400); Red Blood Count 3.48 M/mcL (3.82-4.97); Red Cell Distribution Width 12.5 % (11.5-14.5); Segmented Neutrophils % 55.2 %
[2017-01-12 04:33] LABS: BUN/Creatinine Ratio 18 (6-26); Blood Urea Nitrogen 13 mg/dL (7-20); Carbon Dioxide 23 mEq/L (19-29); Chloride 108 mEq/L (98-109); Glucose 94 mg/dL (70-99); Osmolality,Calculated 286 (280-300); Potassium 3.5 mEq/L (3.5-4.5); Sodium 138 mEq/L (136-145); eGFR For African Americans > 60 (> 60); eGFR For Non-African Americans > 60 (> 60)
[2017-01-12] MEDS: Ringers Solution, Lactated 1,000 ML IVC SCH ×2 (07:30→17:59)
--- NOTE | 2017-01-12 08:10 | General Surgery Progress Note ---
Date of Encounter: 01/12/17 Time of Encounter: 08:09 - Assessment and Plan (1) Partial small bowel obstruction Current Visit: Yes Status: Acute I will order for an dominant x-ray to determine the degree of dilation. Hold on by mouth diet at this time. My concern is that she still may have significant dilation present. Subjective Patient reports: feels better (States she had diarrhea yesterday. No abdominal pain. No nausea.) Objective Vital Signs - Last 8 Hours Temp Pulse Resp BP Pulse Ox 01/12/17 06:45 97.5 F L 85 18 146/63 97 01/12/17 03:20 97.5 F L 70 18 137/62 95 Intake and Output 01/11/17 01/12/17 01/12/17 23:59 07:59 15:59 Intake Total 1000 / 1000 0 / 0 Output Total 500 / 500 1100 / 1100 Balance 500 / 500 -1100 / -1100 Intake: IV Fluids 1000 / 1000 Lactated Ringers 1,000 ML 1000 / 1000 @ 100 mls/hr IVC .Q10H TERRELL Rx#:[id number] Oral 0 / 0 0 / 0 Output: Urine 500 / 500 1100 / 1100 Other: Meal NPO # Voids 1 Blood Glucose* 95 93 - Abdomen Abdomen: Present: soft, non tender, distended (Appears similar to yesterday.) - Labs 01/12/17 03:56 01/12/17 03:56 Diabetes panel 01/12/17 Range/Units 03:56 Sodium 138 (136-145) mEq/L Potassium 3.5 (3.5-4.5) mEq/L Chloride 108 (98-109) mEq/L Carbon Dioxide 23 (19-29) mEq/L BUN 13 (7-20) mg/dL Creatinine 0.74 (0.57-1.11) mg/dL Glucose 94 (70-99) mg/dL Calcium 8.0 L (8.6-10.8) mg/dL Calcium panel 01/12/17 Range/Units 03:56 Calcium 8.0 L (8.6-10.8) mg/dL Pituitary panel 01/12/17 Range/Units 03:56 Sodium 138 (136-145) mEq/L Potassium 3.5 (3.5-4.5) mEq/L Chloride 108 (98-109) mEq/L Carbon Dioxide 23 (19-29) mEq/L BUN 13 (7-20) mg/dL Creatinine 0.74 (0.57-1.11) mg/dL Glucose 94 (70-99) mg/dL Calcium 8.0 L (8.6-10.8) mg/dL Adrenal panel 01/12/17 Range/Units 03:56 Sodium 138 (136-145) mEq/L Potassium 3.5 (3.5-4.5) mEq/L Chloride 108 (98-109) mEq/L Carbon Dioxide 23 (19-29) mEq/L BUN 13 (7-20) mg/dL Creatinine 0.74 (0.57-1.11) mg/dL Glucose 94 (70-99) mg/dL Calcium 8.0 L (8.6-10.8) mg/dL Consult Discharge Plan - Plan Referrals: Victor Hugo Fernandez DO [Primary Care Provider] -
--- NOTE | 2017-01-12 10:22 | Internal Med Progress Note ---
<Josefa Calderon - Last Filed: 01/12/17 15:44> Date of Encounter: 01/12/17 Time of Encounter: 09:30 - Assessment and plan (1) Small bowel obstruction Current Visit: Yes Status: Acute Assessment and plan: Abdominal Xray today demonstrated air-filled loops of large and small bowel in a nonspecific pattern. Patient had episode of diarrhea yesterday; no bowel movement reported today IV Zofran. IV Protonix for GI prophylaxis. Dilaudid for abdominal pain. Surgery has started clear liquid diet. Stop IV fluids. The patient is at high risk for morbidity mortality and complications due to treatment with IV controlled substances. (2) Abdominal pain Current Visit: Yes Status: Resolved Assessment and plan: Resolved Qualifiers: Abdominal location: lower abdomen, unspecified Qualified Code(s): R10.30 - Lower abdominal pain, unspecified (3) Nausea & vomiting Current Visit: No Status: Resolved Assessment and plan: Resolved Qualifiers: Vomiting type: unspecified Vomiting Intractability: non-intractable Qualified Code(s): R11.2 - Nausea with vomiting, unspecified (4) Essential hypertension Current Visit: Yes Status: Chronic Assessment and plan: Discontinue IV antihypertensives Restart home medications Monitor closely (5) DVT prophylaxis Current Visit: No Status: Acute Assessment and plan: SCDs - Subjective Interval history: Patient states that she has no abdominal pain today. She states that she had diarrhea yesterday, but has yet to have a bowel movement today. Denies abdominal pain yesterday. Denies fever, chills, nausea, vomiting. She states that he has not slept. She is very emotional and tearful because Dr. Zamora let her know that she would likely not be discharged until tomorrow. - Constitutional Vitals: Temp Pulse Resp BP Pulse Ox 97.5 F L 85 18 146/63 97 01/12/17 06:45 01/12/17 06:45 01/12/17 06:45 01/12/17 06:45 01/12/17 06:45 General appearance: Present: A&O X 3, answers questions appropriately - Head Head exam: Present: atraumatic, normocephalic - Eye Eye exam: Present: EOMI, PERRL, conjuntiva pink, sclera anicteric - Neck Neck exam general surgery: Present: full ROM, supple, trachea midline Additional comments: No carotid bruit - Respiratory Respiratory exam: Present: CTAB. Absent: accessory muscle use, rales, rhonchi, wheezes - Cardiovascular Cardiovascular exam: Present: RRR, +S1, +S2, systolic murmur. Absent: diastolic murmur, gallop, rubs - GI/Abdominal GI/Abdominal exam: Present: distended (mild distention), normal bowel sounds, soft, no peritoneal signs. Absent: tenderness - Extremities Exam Extremities exam: Present: warm, radial pulses palpable and symetrical. Absent : calf tenderness, cyanotic, pedal edema - Neurological Exam Neurological exam: Present: CN II-XII intact, oriented X3, no focal deficits. Absent: facial droop, speech deficit - Skin Skin exam: Present: dry, intact Internal Medicine: Result - Labs CBC & Chem 7: 01/12/17 03:56 01/12/17 03:56 Labs: Short CBC 01/12/17 Range/Units 03:56 WBC 5.6 (4.3-11.1) K/mcL Hgb 10.2 L (11.5-15.4) g/dL Hct 30.6 L (35.3-44.9) % Plt Count 245 (140-400) K/mcL Neutrophils # 3.1 (1.6-8.9) K/mcL BMP 01/12/17 03:56 Sodium 138 Potassium 3.5 Chloride 108 Carbon Dioxide 23 BUN 13 Creatinine 0.74 Glucose 94 Calcium 8.0 L - Impressions Impressions Chest/Abdomen X-ray 01/12/17 08:10 IMPRESSION: 1. No acute cardiopulmonary abnormality. 2. Air-filled loops of large and small bowel in a nonspecific pattern. D/ / Cornelio Dumont MD / Cornelio Dumont MD Interpreting Provider: Cornelio Dumont MD Consult Discharge Plan - Plan Referrals: Victor Hugo Fernandez DO [Primary Care Provider] - <Tal Galloway - Last Filed: 01/12/17 19:26> Date of Encounter: 01/12/17 - Assessment and plan (1) DVT prophylaxis Current Visit: No Status: Acute (2) Small bowel obstruction Current Visit: Yes Status: Acute (3) Abdominal pain Current Visit: Yes Status: Resolved Qualifiers: Abdominal location: lower abdomen, unspecified Qualified Code(s): R10.30 - Lower abdominal pain, unspecified (4) Nausea and vomiting Current Visit: Yes Status: Acute Qualifiers: Vomiting type: unspecified Vomiting Intractability: intractable Qualified Code(s): R11.2 - Nausea with vomiting, unspecified (5) Essential hypertension Current Visit: Yes Status: Chronic - Constitutional Vitals: Temp Pulse Resp BP Pulse Ox 98.1 F 74 18 161/53 98 01/12/17 15:50 01/12/17 15:50 01/12/17 15:50 01/12/17 15:50 01/12/17 15:50 Internal Medicine: Result - Labs CBC & Chem 7: 01/12/17 03:56 01/12/17 03:56 Labs: Short CBC 01/12/17 Range/Units 03:56 WBC 5.6 (4.3-11.1) K/mcL Hgb 10.2 L (11.5-15.4) g/dL Hct 30.6 L (35.3-44.9) % Plt Count 245 (140-400) K/mcL Neutrophils # 3.1 (1.6-8.9) K/mcL BMP 01/12/17 03:56 Sodium 138 Potassium 3.5 Chloride 108 Carbon Dioxide 23 BUN 13 Creatinine 0.74 Glucose 94 Calcium 8.0 L - Impressions Impressions Chest/Abdomen X-ray 01/12/17 08:10 IMPRESSION: 1. No acute cardiopulmonary abnormality. 2. Air-filled loops of large and small bowel in a nonspecific pattern. D/ / Cornelio Dumont MD / Cornelio Dumont MD Interpreting Provider: Cornelio Dumont MD - Attending Attestation I examined this patient and my medical decision-making was reviewed with the Resident Physician, Dr. Josefa Calderon. I agree with the documented findings, disposition and treatment plan as described except to the extent set forth below. Patient appears in no acute distress awake alert oriented. Heart is regular S1- S2 no murmurs. Abdomen is soft nontender nondistended with diminished bowel sounds. She presented with nausea and vomiting which has improved today. She has nothing by mouth with IV fluids and IV medications. She was found to have small bowel obstruction. We appreciate surgical input. The patient requires inpatient admission due to medically necessary services for more than 3 days. For past medical history family history social history and review of systems please refer to the H&P dictated at [facility] yesterday by Dr. Payne. I have reviewed this document and found no changes or updates. The patient is at high risk for morbidity mortality and complications due to IV opiates for treatment of pain.
[2017-01-12] MEDS: Pantoprazole 40 MG VIAL IVP SCH ×2 (12:34→20:36)
[2017-01-12] MEDS ORDERED: Ondansetron 4 MG/2 ML VIAL IVP PRN (14:00)
[2017-01-12] MEDS ORDERED: *HR* Metoprolol 5 MG/5 ML VIAL IVP PRN (14:03)
[2017-01-12] MEDS ORDERED: Lisinopril 20 MG TABLET PO SCH (21:00)
[2017-01-13] MEDS: Ringers Solution, Lactated 1,000 ML IVC SCH (03:56)
[2017-01-13 06:17] LABS: Basophils # 0.1 K/mcL (0.0-0.2); Basophils % 1.1 %; Eosinophils # 0.2 K/mcL (0.0-0.6); Eosinophils % 3.8 %; Hematocrit 31.2 % (35.3-44.9); Hemoglobin 10.4 g/dL (11.5-15.4); Immature Granulocytes % 2.3 % (0-4); Lymphocytes # 1.4 K/mcL (0.6-4.6); Lymphocytes % 26.6 %; Mean Corpuscular HGB Conc 33.3 g/dL (31.6-35.5); Mean Corpuscular Hemoglobin 28.5 pg (28.0-33.3); Mean Corpuscular Volume 85.5 fL (83.0-100.0); Mean Platelet Volume 9.9 fL (9.4-12.4); Monocytes # 0.5 K/mcL (0.0-1.3); Monocytes % 8.7 %; Platelet Count 264 K/mcL (140-400); Red Blood Count 3.65 M/mcL (3.82-4.97); Red Cell Distribution Width 12.3 % (11.5-14.5); Segmented Neutrophils % 57.5 %
[2017-01-13 06:28] LABS: BUN/Creatinine Ratio 8 (6-26); Blood Urea Nitrogen 6 mg/dL (7-20); Calcium 8.4 mg/dL (8.6-10.8); Carbon Dioxide 24 mEq/L (19-29); Chloride 107 mEq/L (98-109); Glucose 111 mg/dL (70-99); Osmolality,Calculated 286 (280-300); Potassium 3.4 mEq/L (3.5-4.5); Sodium 139 mEq/L (136-145); eGFR For African Americans > 60 (> 60); eGFR For Non-African Americans > 60 (> 60)
[2017-01-13 07:40] VITALS: BP 162/63
[2017-01-13] MEDS: Pantoprazole 40 MG VIAL IVP SCH (08:34)
[2017-01-13] MEDS ORDERED: Bisoprolol/HCTZ 10/6.25 TABLET PO SCH (09:00)
[2017-01-13] MEDS ORDERED: amLODIPine 5 MG TABLET PO SCH (09:00)
--- NOTE | 2017-01-13 10:03 | Discharge Summary ---
<KvngJosefa Ben - Last Filed: 01/13/17 10:54> Date of Encounter: 01/13/17 Time of Encounter: 09:00 - Discharge Diagnosis (1) Small bowel obstruction Priority: Primary Status: Acute (2) Abdominal pain Priority: Secondary Status: Resolved Qualifiers: Abdominal location: lower abdomen, unspecified Qualified Code(s): R10.30 - Lower abdominal pain, unspecified (3) Nausea & vomiting Priority: Secondary Status: Resolved Qualifiers: Vomiting type: unspecified Vomiting Intractability: non-intractable Qualified Code(s): R11.2 - Nausea with vomiting, unspecified (4) Essential hypertension Priority: Secondary Status: Chronic (5) Aortic valve sclerosis Priority: Secondary Status: Chronic Comments: Mildly aortic sclerosis suggested by Doppler. Mean gradient 12mmHg ECHO 02/04/16 with LVEF 60-65% normal LV size, wall thickness, and function Moderate LV diastolic dysfunction Mild to moderately dilated LA Aortic valve not well visualized Mildly aortic sclerosis suggested by Doppler. Mean gradient 12mmHg mild pulmonary hypertension, estimated RVSP is 38mm Hg (6) Pulmonary hypertension Priority: Secondary Status: Chronic Comments: ECHO 02/04/16 with mild pulmonary hypertension, estimated RVSP is 38mm Hg (7) DVT prophylaxis Priority: Secondary Status: Acute - Discharge Medications Prescriptions: Docusate [Colace] 100 mg PO BID PRN #60 capsule PRN Reason: Constipation Home Medications: Amlodipine [Amlodipine Besylate] 10 mg PO DAILY 08/31/15 [History] Aspirin Enteric Coated [Aspirin EC] 81 mg PO DAILY 08/31/15 [History] Gabapentin [Neurontin] 100 mg PO HS 08/31/15 [History] Lisinopril [Zestril] 40 mg PO HS 08/31/15 [History] Omeprazole [PriLOSEC] 20 mg PO BID 08/31/15 [History] Calcium Carbonate [Calcium] 1,000 mg PO DAILY 05/03/16 [History] Ergocalciferol (VITAMIN D2) [Vitamin D] 800 unit PO DAILY 05/03/16 [History] Ranitidine HCl [Zantac] 150 mg PO HS 05/03/16 [History] Ferrous Sulfate 325 mg PO BIDWM #60 tablet 06/12/16 [Rx] Levothyroxine [Synthroid] 25 mcg PO QAM 06/23/16 [History] Oxybutynin Chloride [Ditropan Xl] 10 mg PO HS 06/23/16 [History] Raloxifene [Evista] 60 mg PO DAILY #30 tablet 11/14/16 [Rx] Bisoprolol/HCTZ 06/19.25 [Ziac 06/19.25] 1 tab PO DAILY 11/18/16 [History] Cetirizine HCl [All Day Allergy] 10 mg PO DAILY 01/11/17 [History] Docusate [Colace] 100 mg PO BID PRN #60 capsule 01/13/17 [Rx] Allergies/Adverse Reactions: Allergies latex Allergy (Verified 11/18/16 09:35) Hives - Notes to Outpatient Provider Patient had an ECHO one year ago with evidence of mild pulmonary HTN. She may benefit from investigation for Obstructive Sleep Apnea and/or Pulmonary Function Tests ECHO 02/04/16 with LVEF 60-65% normal LV size, wall thickness, and function Moderate LV diastolic dysfunction Mild to moderately dilated LA Aortic valve not well visualized Mildly aortic sclerosis suggested by Doppler. Mean gradient 12mmHg mild pulmonary hypertension, estimated RVSP is 38mm Hg Date of admission: 01/12/17 19:20 Primary care physician: Victor Hugo Fernandez Consults: Dr. Zamora, General Surgeon Discharging clinician: Tal Galloway Anticipated date of discharge: 01/13/17 - Patient Status Disposition: Home, Self-Care Condition: Good Functional capacity at discharge: independent ambulation Overall status at discharge: patient is progressing back to baseline - Discharge Instructions Follow Up With: Victor Hugo Fernandez DO [Primary Care Provider] - - Diet and Activity Activity: increase activity as tolerated Diet: low fat, low cholesterol Hospital course: Ms. Bhatti is a 71 year old female with past medical history significant for history of rectal cancer (s/p resection, chemotherapy, and radiation therapy), HTN, COPD-emphysema, aortic sclerosis, pulmonary hypertension, GERD, OA/OP, hypothyroidism, iron deficiency anemia, calcium deficiency, vitamin D deficiency , obesity who presented to [facility] on 01/10/17 with a 2 day history of abdominal pain, nausea, anorexia. Patient was found to have small bowel obstruction on CT 01/10/17. A transition point was demonstrated within the RLQ. Surgery was consulted. Patient was given conservative management with NPO. Patient was unable to tolerate NGT. She had return of bowel function on 01/11/17 with non- bloody diarrhea. Patient stooling well at this time. She is tolerating soft food diet. She will be discharged to home with instructions to follow up with her PCP in 7 days. She will be given a prescription for stool softener to use as needed for constipation. - Time Spent with Patient Total time spent providing and/or coordinating discharge services: Greater than 30 minutes (35 minutes including time with patient and coordinating care) - Constitutional Vitals: Temp Pulse Resp BP Pulse Ox 97.6 F 65 18 162/63 97 01/13/17 07:34 01/13/17 07:34 01/13/17 07:34 01/13/17 07:34 01/13/17 07:34 General appearance: Present: A&O X 3, pleasant, answers questions appropriately - Head Head exam: Present: atraumatic, normocephalic - Eye Eye exam: Present: EOMI, PERRL, sclera anicteric Additional comments: conjunctiva pale - Neck Neck exam general surgery: Present: full ROM, supple, trachea midline Additional comments: No carotid bruit - Respiratory Respiratory exam: Present: CTAB. Absent: accessory muscle use, rales, rhonchi, wheezes - Cardiovascular Cardiovascular exam: Present: +S1, +S2, systolic murmur. Absent: diastolic murmur, gallop, rubs - GI/Abdominal GI/Abdominal exam: Present: normal bowel sounds, soft, no peritoneal signs. Absent: distended, tenderness - Extremities Exam Extremities exam: Present: warm, radial pulses palpable and symetrical. Absent : calf tenderness, cyanotic, pedal edema - Neurological Exam Neurological exam: Present: CN II-XII intact, oriented X3, no focal deficits. Absent: facial droop, speech deficit - Skin Skin exam: Present: dry, intact - Other Additional findings: Abdomen/Pelvis CT 01/10/17 19:04 IMPRESSION: 1. Small bowel obstruction with transition point located within the right lower quadrant. Critical results were called by Dr. Skip Escobedo MD to Dr. Gallardo on 01/10/2017 at 19:42. D/ / Skip Escobedo MD / Skip Escobedo MD Interpreting Provider: Skip Escobedo MD Chest/Abdomen X-ray 01/12/17 08:10 IMPRESSION: 1. No acute cardiopulmonary abnormality. 2. Air-filled loops of large and small bowel in a nonspecific pattern. D/ / Cornelio Dumont MD / Cornelio Dumont MD Interpreting Provider: Cornelio Dumont MD <Tal Galloway - Last Filed: 01/13/17 17:21> Date of Encounter: 01/13/17 - Discharge Diagnosis (1) DVT prophylaxis Status: Acute (2) Small bowel obstruction Status: Acute (3) Abdominal pain Status: Resolved Qualifiers: Abdominal location: lower abdomen, unspecified Qualified Code(s): R10.30 - Lower abdominal pain, unspecified (4) Nausea and vomiting Status: Acute Qualifiers: Vomiting type: unspecified Vomiting Intractability: intractable Qualified Code(s): R11.2 - Nausea with vomiting, unspecified (5) Essential hypertension Status: Chronic Date of admission: 01/12/17 19:20 Primary care physician: Victor Hugo Fernandez [facility] Hospital course: Ms. Bhatti is a 71 year old female - Time Spent with Patient Total time spent providing and/or coordinating discharge services: - Constitutional Vitals: Temp Pulse Resp BP Pulse Ox 97.6 F 65 18 162/63 97 01/13/17 07:34 01/13/17 07:34 01/13/17 07:34 01/13/17 07:34 01/13/17 07:34 - Attending Attestation I examined this patient and my medical decision-making was reviewed with the Resident Physician, Dr Josefa Calderon. I agree with the documented findings, disposition and treatment plan as described except to the extent set forth below. Patient was examined at the bedside and she appears in no acute distress awake alert oriented. Heart auscultation reveals regular S1-S2 no murmurs. Abdomen is soft nontender nondistended with normoactive bowel sounds. Plan: Patient is medically stable for discharge home. I recommend close follow- up with primary care physician.
== END 2017-01-13 12:40 | disposition home or self-care (01) | DRG 389 ==
LOC: 3ANU 17:26 → EMEROO 17:26 → 3ANU 21:47
PROVIDERS: ADMIT Internal Medicine; ATTEND Internal Medicine

== ENCOUNTER 2017-01-23 14:39 | Inpatient (IN) ==
[2017-01-23 15:56] LABS: Basophils # 0.1 K/mcL (0.0-0.2); Basophils % 1.1 %; Eosinophils # 0.1 K/mcL (0.0-0.6); Eosinophils % 1.1 %; Hematocrit 43.6 % (35.3-44.9); Hemoglobin 13.9 g/dL (11.5-15.4); Immature Granulocytes % 1.5 % (0-4); Lymphocytes # 1.3 K/mcL (0.6-4.6); Mean Corpuscular HGB Conc 31.9 g/dL (31.6-35.5); Mean Corpuscular Hemoglobin 28.5 pg (28.0-33.3); Mean Corpuscular Volume 89.3 fL (83.0-100.0); Mean Platelet Volume 9.7 fL (9.4-12.4); Monocytes # 0.5 K/mcL (0.0-1.3); Monocytes % 3.4 %; Platelet Count 350 K/mcL (140-400); Red Blood Count 4.88 M/mcL (3.82-4.97); Red Cell Distribution Width 13.2 % (11.5-14.5); Segmented Neutrophils % 82.9 %
[2017-01-23 16:11] LABS: Alanine Aminotransferase 65 Units/L (0-55); Alkaline Phosphatase 88 Units/L (38-126); Amylase 35 Units/L (25-125); Aspartate Amino Transferase 87 Units/L (5-34); BUN/Creatinine Ratio 17 (6-26); Bilirubin,Direct 0.1 mg/dL (0.0-0.5); Bilirubin,Indirect 0.2 mg/dL (0.0-1.2); Bilirubin,Total 0.3 mg/dL (0.2-1.2); Blood Urea Nitrogen 15 mg/dL (7-20); Calcium 10.4 mg/dL (8.6-10.8); Carbon Dioxide 19 mEq/L (19-29); Chloride 104 mEq/L (98-109); Glucose 155 mg/dL (70-99); Lipase 16 Units/L (8-78); Osmolality,Calculated 290 (280-300); Potassium 4.1 mEq/L (3.5-4.5); Sodium 138 mEq/L (136-145); eGFR For African Americans > 60 (> 60); eGFR For Non-African Americans > 60 (> 60)
[2017-01-23 17:38] LABS: Bilirubin,Urine Negative (Negative); Blood,Urine Negative (Negative); Clarity,Urine Cloudy (Clear); Color,Urine Yellow (Yellow); Glucose,Urine (UA) Normal (Normal); Ketones,Urine Negative (Negative); Leukocyte Esterase,Urine Moderate (Negative); Nitrite,Urine Negative (Negative); Protein,Urine Negative (Neg-Trace); Specific Gravity,Urine 1.026 (1.010-1.025); Urobilinogen,Urine Normal (Normal)
[2017-01-23 17:40] LABS: Bacteria,Urine None Seen per hpf (None-Few); Hyaline Casts,Urine None Seen per lpf (None-Few); Squamous Epithelial Cell,Urine Many per lpf (None-Few); WBC,Urine 30-50 per hpf (0-3)
--- NOTE | 2017-01-23 17:40 | Emergency Department Note ---
Disposition Clinical Impression: Small bowel obstruction Disposition: Admitted As Inpatient Condition: Fair Referrals: Victor Hugo Fernandez DO [Primary Care Provider] - Forms: Work/School Release, ED Satisfaction Letter Time of Disposition: 19:31 Abdominal Pain HPI - General Chief Complaint: ED Abdominal Pain Stated Complaint: Abd pain Time Seen by Provider: 01/23/17 17:25 Source: patient Mode of arrival: ambulatory Limitations: no limitations Nursing Notes Reviewed: Yes Vital Signs Reviewed: Yes - History of Present Illness HPI Narrative: 71-year-old who was hospitalized the last couple weeks with a bowel obstruction who comes in with some abdominal pain nausea vomiting and a little bit of diarrhea earlier today. She states the pain has improved some. 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 Consistency: constant, Improving Location: diffuse Pain Severity: moderate, severe Pain Scale: 9 Quality: cramping, aching Radiation: none Migration to: no migration Improves with: nothing Worsens with: nothing Associated symptoms: Reports: nausea, vomiting, diarrhea Treatments prior to arrival: none - Related Data Home Medications Medication Instructions Recorded Confirmed Amlodipine [Amlodipine Besylate] 10 mg PO DAILY 08/31/15 01/23/17 Aspirin Enteric Coated [Aspirin EC] 81 mg PO DAILY 08/31/15 01/23/17 Gabapentin [Neurontin] 100 mg PO HS 08/31/15 01/23/17 Lisinopril [Zestril] 40 mg PO HS 08/31/15 01/23/17 Omeprazole [PriLOSEC] 20 mg PO BID 08/31/15 01/23/17 Calcium Carbonate [Calcium] 1,000 mg PO DAILY 05/03/16 01/23/17 Ergocalciferol (VITAMIN D2) 800 unit PO DAILY 05/03/16 01/23/17 [Vitamin D] Ranitidine HCl [Zantac] 150 mg PO HS 05/03/16 01/23/17 Levothyroxine [Synthroid] 25 mcg PO QAM 06/23/16 01/23/17 Oxybutynin Chloride [Ditropan Xl] 10 mg PO HS 06/23/16 01/23/17 Bisoprolol/HCTZ 10.25 [Ziac 1 tab PO DAILY 11/18/16 01/23/17 106.25] Cetirizine HCl [All Day Allergy] 10 mg PO DAILY PRN 01/11/17 01/23/17 Previous Rx's Medication Instructions Recorded Ferrous Sulfate 325 mg PO BIDWM #60 tablet 06/12/16 Raloxifene [Evista] 60 mg PO DAILY #30 tablet 11/14/16 Docusate [Colace] 100 mg PO BID PRN #60 capsule 01/13/17 Allergies Allergy/AdvReac Type Severity Reaction Status Date / Time latex Allergy Hives Verified 11/18/16 09:35 All systems ED: reviewed and negative except as stated. Constitutional: Denies: fever, chills, weakness, weight change Eyes: Denies: eye pain, eye discharge, vision change ENT ED: Denies: ear pain, throat pain, dental pain, hearing loss, epistaxis, congestion, dysphagia Cardiovascular: Denies: chest pain, palpitations, dyspnea on exertion, edema, syncope Respiratory: Denies: cough, dyspnea, wheezes, hemoptysis, stridor Gastrointestinal: Reports: abdominal pain, nausea, vomiting, diarrhea. Denies: constipation, hematemesis, melena, hematochezia Genitourinary: Denies: dysuria, frequency, hematuria, discharge Musculoskeletal: Denies: back pain, neck pain, arthralgia, myalgia Integumentary: Denies: rash, abrasion, lesions Neurological: Denies: headache, weakness, numbness, paresthesias, confusion, abnormal gait, vertigo Psychiatric: Denies: anxiety, depression, suicidal thoughts, homicidal thoughts , auditory hallucinations, visual hallucinations Endocrine: Denies: fatigue Hematological/Lymphatic: Denies: easy bleeding, easy bruising Allergic/Immunologic: Denies: facial swelling, urticaria Abdominal Pain PMH - Past Medical History Medical history: Reports: arthritis, cancer, cardiomyopathy, COPD, GERD, GI bleed, hyperlipidemia, hypertension, kidney stones, liver disease, osteoporosis , renal disease, thyroid disease, valvular heart disease, other Female Surgical History: Reports: cholecystectomy, hysterectomy 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: other Psychiatric history: Reports: no psych history - Social History Smoking status: Never smoker Alcohol use: Reports: none Drug use: Reports: none Physical Exam - General Limitations: no limitations General appearance: alert - Head Head exam: atraumatic, normocephalic, normal inspection - Eye Eye exam: Present: normal appearance, PERRL, EOMI - ENT ENT exam: normal exam, normal oropharynx, mucous membranes moist - Neck Neck exam: Present: normal inspection, full ROM, trachea midline - Chest Chest inspection: Present: normal inspection, symmetric chest wall rise - Respiratory Respiratory exam: Present: normal lung sounds bilaterally - Cardiovascular Cardiovascular exam: Present: regular rate, normal rhythm, normal heart sounds - Abdominal Exam Abdominal exam: Present: soft, tenderness. Absent: distention, guarding, rebound, rigidity - Extremities Exam Extremities exam: Present: normal inspection, full ROM. Absent: tenderness, pedal edema - Expanded Lower Extremity Exam Neurovascular/Tendon exam: Absent: motor deficit, sensory deficit, tendon deficit Gait: observed and normal - Back Exam Back exam: Present: normal inspection, full ROM. Absent: tenderness - Neurological Exam Neurological exam: Present: alert, oriented X3 - Psychiatric Psychiatric exam: Present: normal affect, normal mood - Skin Skin exam: Present: warm, dry, intact, normal color Course - Reevaluation(s) Reevaluation #1: 71-year-old who is admitted with bowel obstruction last week was treated conservatively comes back in with nausea vomiting CT scan does show what appears to be a small bowel obstruction. Patient will be admitted. Time: 19:31 - Consultations Consultation #1: Discussed with , admit to hospitalist. Time: 20:27 Consultation #2: Discussed with , admit. Time: 21:40 Vital Signs Temperature 98.2 F 01/23/17 14:52 Pulse Rate 82 01/23/17 14:52 Respiratory Rate 16 01/23/17 14:52 Blood Pressure 158/83 01/23/17 14:52 O2 Sat by Pulse Oximetry 96 01/23/17 14:52 Temperature 98.2 F 01/23/17 14:52 Pulse Rate 79 01/23/17 19:04 Respiratory Rate 18 01/23/17 19:04 Blood Pressure 178/80 01/23/17 19:04 O2 Sat by Pulse Oximetry 97 01/23/17 19:04 Oxygen Delivery Oxygen Delivery Room Air Abdominal Pain - Lab Data Lab results reviewed: Yes I reviewed the patient's lab results. Result diagrams: 01/23/17 15:44 01/23/17 15:44 Lab Results 01/23/17 01/23/17 01/23/17 Range/Units 15:44 15:44 17:26 WBC 13.3 H (4.3-11.1) K/mcL RBC 4.88 (3.82-4.97) M/mcL Hgb 13.9 (11.5-15.4) g/dL Hct 43.6 (35.3-44.9) % MCV 89.3 (83.0-100.0) fL MCH 28.5 (28.0-33.3) pg MCHC 31.9 (31.6-35.5) g/dL RDW 13.2 (11.5-14.5) % Plt Count 350 (140-400) K/mcL MPV 9.7 (9.4-12.4) fL Immature Gran % 1.5 (0-4) % Seg Neutrophils % 82.9 % Lymphocytes % 10.0 % Monocytes % 3.4 % Eosinophils % 1.1 % Basophils % 1.1 % Neutrophils # 11.0 H (1.6-8.9) K/mcL Lymphocytes # 1.3 (0.6-4.6) K/mcL Monocytes # 0.5 (0.0-1.3) K/mcL Eosinophils # 0.1 (0.0-0.6) K/mcL Basophils # 0.1 (0.0-0.2) K/mcL Sodium 138 (136-145) mEq/L Potassium 4.1 (3.5-4.5) mEq/L Chloride 104 (98-109) mEq/L Carbon Dioxide 19 (19-29) mEq/L BUN 15 (7-20) mg/dL Creatinine 0.86 (0.57-1.11) mg/dL Est GFR ( Amer) > 60 (> 60) Est GFR (Non-Af Amer) > 60 (> 60) BUN/Creatinine Ratio 17 (6-26) Glucose 155 H (70-99) mg/dL Calculated Osmolality 290 (280-300) Calcium 10.4 (8.6-10.8) mg/dL Total Bilirubin 0.3 (0.2-1.2) mg/dL Direct Bilirubin 0.1 (0.0-0.5) mg/dL Indirect Bilirubin 0.2 (0.0-1.2) mg/dL AST 87 H (5-34) Units/L ALT 65 H (0-55) Units/L Alkaline Phosphatase 88 (38-126) Units/L Serum Total Protein 8.0 (6.0-8.3) g/dL Albumin 4.0 (3.5-5.0) g/dL Globulin 4.0 H (2.4-3.5) g/dL Albumin/Globulin Ratio 1.0 L (1.1-2.2) Amylase 35 (25-125) Units/L Lipase 16 (8-78) Units/L Urine Color Yellow (Yellow) Urine Clarity Cloudy A (Clear) Urine pH 5.0 (5.0-8.0) pH Units Ur Specific [place] 1.026 H (1.010-1.025) Urine Protein Negative (Neg-Trace) mg/dL Urine Glucose (UA) Normal (Normal) mg/dL Urine Ketones Negative (Negative) mg/dL Urine Blood Negative (Negative) Urine Nitrite Negative (Negative) Urine Bilirubin Negative (Negative) Urine Urobilinogen Normal (Normal) mg/dL Ur Leukocyte Esterase Moderate H (Negative) Urine Microscopic RBC 5-15 H (0-3) per hpf Urine Microscopic WBC 30-50 H (0-3) per hpf Ur Squamous Epith Cells Many H (None-Few) per lpf Urine Bacteria None Seen (None-Few) per hpf Hyaline Casts None Seen (None-Few) per lpf Ur Culture Indicated? YES A (NO) - Radiology Data Radiology results reviewed: Yes I reviewed the patient's radiology results. Abdomen/Pelvis CT 01/23/17 17:37 IMPRESSION: Findings concerning for small bowel obstruction with gradual transition in right lower quadrant. Small amount of ascites predominantly dependently in the pelvis, new from prior exam. Fluid present within large bowel. Correlate clinically as to diarrhea. Punctate nonobstructing right renal stones. D/ 01/23/2017 18:10:20 Shaka Vaca MD / lgray Interpreting Provider: Shaka Vaca MD
[2017-01-23] MEDS ORDERED: Ondansetron 4 MG/2 ML VIAL IVP ONE (21:15)
[2017-01-23] MEDS ORDERED: *HR* Morphine 2 MG/ML SYRINGE IVP ONE (21:15)
[2017-01-24] MEDS ORDERED: *HR* Morphine 2 MG/ML SYRINGE IVP PRN (02:29)
[2017-01-24] MEDS ORDERED: Ondansetron 4 MG/2 ML VIAL IVP PRN (02:29)
[2017-01-24] MEDS ORDERED: Naloxone 0.4 MG/ML INJ IVP PRN (02:29)
--- NOTE | 2017-01-24 02:41 | Internal Med History&Physical ---
Date of Encounter: 01/24/17 Time of Encounter: 02:00 Assessment and Plan (1) Small bowel obstruction Current visit: No Status: Acute 1. Patient already reports 4 BM's tonight since ER admission. 2. Will keep npo, hydrate with IVF, and monitor clinically. 3. Follow with serial exams and re-image with AAS. 4. Surgery consult with Dr. Hilario. (2) UTI (urinary tract infection) Current visit: No Status: Suspected 1. Culture urine. 2. Will treat with IV Rocephin. 3. Follow urine culture. Qualifiers: Urinary tract infection type: acute cystitis Hematuria presence: without hematuria Qualified Code(s): N30.00 - Acute cystitis without hematuria (3) GERD (gastroesophageal reflux disease) Current visit: Yes Status: Acute 1. Continue PPI IV for now while npo. 2. Convert to oral regimen once patient is able to tolerate PO meds. Qualifiers: Esophagitis presence: without esophagitis Qualified Code(s): K21.9 - Gastro -esophageal reflux disease without esophagitis (4) DVT prophylaxis Current visit: Yes Status: Acute 1. Heparin SQ. Internal Medicine - H&P: HPI Chief complaint: abdominal pain Admitted From: Emergency Dept Plans for Post Hospital Care: Home History of present illness: Ms. Bhatti is a 71 year old female who presents to the ER today with a 1-2 day history of abdominal pain, cramping, and nausea followed by severe and intense pain today. Workup in the ER revealed patient to have a small bowel obstruction on CAT scan. She was therefore admitted to the hospitalist service with a consult to general surgery. Dr. Hilario was contacted by the ER, and she said she will see patient in consultation and agreed with conservative measures initially. Upon my assessment of the patient, she currently feels better. Her abdominal pain has improved significantly, but she is still distended. She denies any fevers, chills, chest pain, or shortness breath. She does have a little dysuria , however. Since her initial presentation to ER, she has passed flatus and actually had moved her bowels 4 times now. She states she feels much better after moving her bowels. She denies any complaints presently otherwise. Risk factors for bowel obstruction include prior abdominal surgery including hysterectomy, , and cholecystectomy. Additionally, she had rectal cancer several years ago treated with radiation and chemotherapy. Past Med Surg Social Fam HX - Past Medical History Attestation: Yes The following information was validated with the patient. Source: patient, old records reviewed Medical history: arthritis, cancer, cardiomyopathy, COPD, GERD, GI bleed, hyperlipidemia, hypertension, kidney stones, liver disease, osteoporosis, renal disease, thyroid disease, valvular heart disease Psychiatric history: no psych history - Past Surgical History Surgical History: , cancer surgery, cholecystectomy, hysterectomy, other - Social History Smoking Status: Never smoker Smokeless Tobacco Status: No Alcohol use: none Drug use: none Current living situation: Home Activity Level: Independent ambulation Recent Out of Country Travel Within the Last 8 Weeks: No - Family History Mother Living Status: Age at : 86 Cause of : CVA Hx Family Cardiac Disorders: Yes (HTN) Hx Family Respiratory Disorders: Yes (copd) Internal Medicine - H&P: Meds Amlodipine [Amlodipine Besylate] 10 mg PO DAILY 08/31/15 [History] Aspirin Enteric Coated [Aspirin EC] 81 mg PO DAILY 08/31/15 [History] Gabapentin [Neurontin] 100 mg PO HS 08/31/15 [History] Lisinopril [Zestril] 40 mg PO HS 08/31/15 [History] Omeprazole [PriLOSEC] 20 mg PO BID 08/31/15 [History] Calcium Carbonate [Calcium] 1,000 mg PO DAILY 05/03/16 [History] Ergocalciferol (VITAMIN D2) [Vitamin D] 800 unit PO DAILY 05/03/16 [History] Ranitidine HCl [Zantac] 150 mg PO HS 05/03/16 [History] Ferrous Sulfate 325 mg PO BIDWM #60 tablet 06/12/16 [Rx] Levothyroxine [Synthroid] 25 mcg PO QAM 06/23/16 [History] Oxybutynin Chloride [Ditropan Xl] 10 mg PO HS 06/23/16 [History] Raloxifene [Evista] 60 mg PO DAILY #30 tablet 11/14/16 [Rx] Bisoprolol/HCTZ 10/6.25 [Ziac 106.25] 1 tab PO DAILY 11/18/16 [History] Cetirizine HCl [All Day Allergy] 10 mg PO DAILY PRN 01/11/17 [History] Docusate [Colace] 100 mg PO BID PRN #60 capsule 01/13/17 [Rx] Allergies latex Allergy (Verified 11/18/16 09:35) Hives - Constitutional Constitutional: no chills, no fever(s) - EENT Eyes: no blurry vision, no change in vision Ears: no ear pain, no tinnitus Nose, mouth and throat: no nasal congestion, no sinus pressure, no sore throat - Cardiovascular Cardiovascular ROS IM: no chest pain, no dyspnea, no dyspnea on exertion, no edema - Respiratory Respiratory: no cough, no dyspnea, no hemoptysis - Gastrointestinal Gastrointestinal: abdominal pain, bloating, nausea, no hematemesis, no hematochezia, no melena, no vomiting - Genitourinary Genitourinary: genital pruritis, no hematuria - Musculoskeletal Musculoskeletal ROS IM: no arthralgias, no back pain - Integumentary Integumentary IM: no rash, no jaundice - Neurological Neurological ROS: no disequilibrium, no focal weakness, no frequent falls, no headache(s) - Psychiatric Psychiatric: no anxiety, no depression - Endocrine Endocrine IM: no polydipsia, no polyuria - Hematologic/Lymphatic Hematologic/Lymphatic: easy bruising, no lymphadenopathy - Allergic/Immunologic Allergic/Immunologic: no wheezing, no GI upset with certain foods - Constitutional Vitals: Temp Pulse Resp BP Pulse Ox 97.3 F L 63 14 126/56 94 01/24/17 00:02 01/24/17 00:02 01/24/17 00:02 01/24/17 00:02 01/24/17 00:02 General appearance: Present: cooperative, A&O X 3, pleasant, no acute distress, answers questions appropriately Exam: looks a little dry - Head Head exam: Present: atraumatic, normal inspection - Expanded Head Exam Head exam expanded: Absent: abrasion, contusion, general tenderness - Eye Eye exam: Present: EOMI, normal appearance, PERRL. Absent: scleral icterus Pupils: Present: normal accommodation - ENT ENT exam: Present: mucous membranes moist, normal exam - Neck Neck exam general surgery: Present: full ROM, supple. Absent: lymphadenopathy, tenderness, thyromegaly - Respiratory Respiratory exam: Present: accessory muscle use, chest wall tenderness, CTAB. Absent: rales, rhonchi, wheezes - Cardiovascular Cardiovascular exam: Present: RRR, +S1, +S2, systolic murmur. Absent: diastolic murmur, irregular rhythm, JVD - GI/Abdominal GI/Abdominal exam: Present: diminished bowel sounds, tenderness. Absent: guarding, hepatomegaly, mass, rebound, splenomegaly - Extremities Exam Extremities exam: Present: full ROM, warm. Absent: calf tenderness, pedal edema - Back Exam Back exam: Present: normal inspection. Absent: CVA tenderness (L), CVA tenderness (R) - Neurological Exam Neurological exam: Present: alert, CN II-XII intact, oriented X3, no focal deficits - Psychiatric Psychiatric exam: Present: normal affect, normal mood - Skin Skin exam: Present: dry, warm. Absent: rash Internal Med - H&P Results - Labs CBC & Chem 7: 01/23/17 15:44 01/23/17 15:44 - Diagnostic Studies CT scan - abdomen Additional comments: Report reviewed
[2017-01-24] MEDS: 0.9 % Sodium Chloride w KCl 20 MEQ/1,000 ML MLS IVC SCH ×2 (03:05→15:27)
[2017-01-24 03:21] LABS: Basophils # 0.1 K/mcL (0.0-0.2); Basophils % 0.5 %; Eosinophils # 0.1 K/mcL (0.0-0.6); Eosinophils % 0.7 %; Immature Granulocytes % 0.9 % (0-4); Lymphocytes # 2.2 K/mcL (0.6-4.6); Lymphocytes % 22.2 %; Mean Corpuscular HGB Conc 33.3 g/dL (31.6-35.5); Mean Corpuscular Hemoglobin 29.3 pg (28.0-33.3); Mean Corpuscular Volume 87.8 fL (83.0-100.0); Mean Platelet Volume 10.3 fL (9.4-12.4); Monocytes # 0.6 K/mcL (0.0-1.3); Monocytes % 6.4 %; Neutrophils # 6.8 K/mcL (1.6-8.9); Platelet Count 286 K/mcL (140-400); Red Blood Count 3.76 M/mcL (3.82-4.97); Red Cell Distribution Width 13.4 % (11.5-14.5); Segmented Neutrophils % 69.3 %
[2017-01-24 03:36] LABS: Alanine Aminotransferase 47 Units/L (0-55); Albumin 3.1 g/dL (3.5-5.0); Alkaline Phosphatase 60 Units/L (38-126); Aspartate Amino Transferase 51 Units/L (5-34); BUN/Creatinine Ratio 20 (6-26); Bilirubin,Total 0.4 mg/dL (0.2-1.2); Blood Urea Nitrogen 20 mg/dL (7-20); Calcium 8.8 mg/dL (8.6-10.8); Carbon Dioxide 23 mEq/L (19-29); Chloride 107 mEq/L (98-109); Glucose 105 mg/dL (70-99); Magnesium 1.6 mg/dL (1.6-2.6); Osmolality,Calculated 291 (280-300); Potassium 4.4 mEq/L (3.5-4.5); Sodium 139 mEq/L (136-145); Total Protein 6.1 g/dL (6.0-8.3); eGFR For African Americans > 60 (> 60); eGFR For Non-African Americans 56 (> 60)
--- NOTE | 2017-01-24 08:31 | General Surgery Consult Note ---
<Katie Hussein - Last Filed: 01/24/17 10:52> Date of Encounter: 01/24/17 Time of Encounter: 08:22 Assessment and Plan (1) Small bowel obstruction Current Visit: Yes Status: Acute Patient had a SBO on 01/12/17 and was evaluated by Dr. Zamora with medical management at that time. Patient presents with abdominal pain, n/v/d yesterday with CT findings concerning for small bowel obstruction with gradual transition in the right lower quadrant. Patient reports 4 bowel movements in the ED, with subsequent resolution of nausea and vomiting. She has had multiple bowel movements since, including one this morning at 0700. She has refused NG tube placement. She denies abdominal pain, nausea, vomiting currently. She remains nothing by mouth this morning. She denies hematemesis, coffee-ground emesis, hematochezia, melena. Surgical history of cholecystectomy in 2012, complete hysterectomy in 1994, C- section in 1976. 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 AAS performed this morning. Mild bowel air presence in the bowel located within the pelvis, no air noted in the rectum Recommend medical management at this time, patient has bowel sounds, is passing stool, has no abdominal tenderness, has no nausea and vomiting. Vital signs are stable, WBC is WNL at 9.8. Electrolytes are stable. AST and ALT have improved. Plan: -Medical management of SBO -Advance diet to clear liquids -Continue IV hydration -Serial abdominal exams -Monitor electrolytes and VS (2) GERD (gastroesophageal reflux disease) Current Visit: Yes Status: Acute Continue PPI IV while NPO Advance meds to oral as tolerated Qualifiers: Esophagitis presence: without esophagitis Qualified Code(s): K21.9 - Gastro -esophageal reflux disease without esophagitis History of Present Illness Consult date: 01/24/17 Reason for consult: abdominal pain Requesting physician: Mario Ruff History of present illness: Ms. Bhatti is a 71-year-old female who presented to the ER yesterday with a one- day history of abdominal pain, cramping, nausea, loose stools and diarrhea. She states that 2 weeks ago (01/12-01/13) she was admitted to the hospital for small bowel obstruction was seen by Dr. Zamora at that time. She did not require surgical intervention and it was managed medically. She states that yesterday she began having abdominal pain that was in the right lower quadrant and the left lower quadrant, but was not as bad as her previous pain. She also vomited 4 times and experienced nausea. She then began having episodes of loose , watery, and normal bowel movements that she states were not bloody, were not black or tarry. She did state that they were a greenish color, which is normal for her since she is on iron tablets. Does note that she occasionally has streaking of blood in her stools that comes from scar tissues. She denies hematemesis or coffee-ground emesis. She states that her vomit was green. Since admission from the emergency department she has been passing gas, has had multiple bowel movements which were loose. She notes that she had 4 bowel movements while in the emergency department and 1 at 0700 this morning. She states the bowel movement this morning was loose and green, which is her normal color. She denies any current nausea or vomiting. She notes that her nausea resolved after her 4 bowel movements in the emergency department. She denies current abdominal pain. The patient states that she has a surgical history of cholecystectomy in 2012, complete hysterectomy secondary to endometriosis in 1994, and in 1976. She has a past medical history of hypertension, hyperlipidemia, GERD, fatty liver, anorectal cancer that was treated with chemo & radiation in November 2009 Autumn is a nonsmoker who has never smoked, does not drink alcohol or use illicit drugs. Past Med Surg Social Fam HX - Past Medical History Medical history: arthritis, cancer, cardiomyopathy, GERD, GI bleed, hyperlipidemia, hypertension, kidney stones, liver disease, osteoporosis, renal disease, thyroid disease, valvular heart disease Psychiatric history: no psych history - Past Surgical History Surgical History: , cholecystectomy, hysterectomy - Social History Smoking Status: Never smoker Smokeless Tobacco Status: No Alcohol use: none Drug use: none - Family History Mother Living Status: Age at : 86 Cause of : CVA Hx Family Cardiac Disorders: Yes (HTN) Hx Family Respiratory Disorders: Yes (copd) Medications and Allergies Amlodipine [Amlodipine Besylate] 10 mg PO DAILY 08/31/15 [History] Aspirin Enteric Coated [Aspirin EC] 81 mg PO DAILY 08/31/15 [History] Gabapentin [Neurontin] 100 mg PO HS 12/18/15 [History] Lisinopril [Zestril] 40 mg PO HS 08/31/15 [History] Omeprazole [PriLOSEC] 20 mg PO BID 08/31/15 [History] Calcium Carbonate [Calcium] 1,000 mg PO DAILY 05/03/16 [History] Ergocalciferol (VITAMIN D2) [Vitamin D] 800 unit PO DAILY 05/03/16 [History] Ranitidine HCl [Zantac] 150 mg PO HS 05/03/16 [History] Ferrous Sulfate 325 mg PO BIDWM #60 tablet 06/12/16 [Rx] Levothyroxine [Synthroid] 25 mcg PO QAM 06/23/16 [History] Oxybutynin Chloride [Ditropan Xl] 10 mg PO HS 06/23/16 [History] Raloxifene [Evista] 60 mg PO DAILY #30 tablet 11/14/16 [Rx] Bisoprolol/HCTZ 10/6.25 [Ziac 106.25] 1 tab PO DAILY 11/18/16 [History] Cetirizine HCl [All Day Allergy] 10 mg PO DAILY PRN 01/11/17 [History] Docusate [Colace] 100 mg PO BID PRN #60 capsule 01/13/17 [Rx] Levofloxacin [Levaquin] 500 mg PO DAILY #5 tablet 01/25/17 [Rx] Allergies latex Allergy (Verified 11/18/16 09:35) Hives Review of Systems All systems PM: A 10-system review of systems was performed and is negative for pertinent findings except as documented above in the HPI. - Constitutional no chills, no fever(s), no headache(s) - EENT Nose, mouth and throat: no dizziness, no headache(s) - Cardiovascular no chest pain, no diaphoresis, no dyspnea, no edema, no palpitations - Respiratory cough, no dyspnea, no hemoptysis - Gastrointestinal diarrhea, loose stools, no abdominal pain, no coffee ground emesis, no hematemesis, no hematochezia, no melena, no nausea, no vomiting - Genitourinary Genitourinary: no hematuria - Musculoskeletal no arthralgias - Integumentary no erythema, no pruritus - Neurological no dizziness, no headache(s) - Psychiatric no anxiety, no confusion, no depression - Endocrine no excessive sweating - Hematologic/Lymphatic no easy bruising, no lymphadenopathy - Allergic/Immunologic no wheezing General Surgery Exam Initial Vital Signs Temp Pulse Resp BP Pulse Ox 98.2 F 82 16 158/83 96 01/23/17 14:52 01/23/17 14:52 01/23/17 14:52 01/23/17 14:52 01/23/17 14:52 - General physical appearance well developed, well nourished, no distress, no pain, obese - Eyes PERRL, normal ocular movement - ENT dry mucosa, atraumatic, normocephalic - Neck no masses, trachea midline - Respiratory normal expansion, normal respiratory effort, clear to auscultation - Cardiovascular Cardiovascular exam: Present: RRR, murmurs (Systolic) - Expanded Cardiovascular Exam Peripheral pulses: 2+: Radial (L), Radial (R), Posterior Tibialis (L), Posterior Tibialis (R), Dorsalis Pedis (L) PM, Dorsalis Pedis (R) PM - Abdomen Abdomen general surgery: Present: bowel sounds present, soft, non tender - Integumentary Integumentary general surgery: Present: warm and dry, no abnormal pigmentation. Absent: diaphoresis, rash - Neurologic Present: CN 2-12 grossly intact, normal sensation - Psychiatric Psychiatric general surgery: Present: appropriate, oriented to person, oriented to place, oriented to time, speech is normal, memory intact Exam Initial Vital Signs Temp Pulse Resp BP Pulse Ox 98.2 F 82 16 158/83 96 01/23/17 14:52 01/23/17 14:52 01/23/17 14:52 01/23/17 14:52 01/23/17 14:52 Results - Labs 01/24/17 02:59 01/24/17 02:59 Abnormal lab results RBC 3.76 M/mcL (3.82-4.97) L 01/24/17 02:59 Hgb 11.0 g/dL (11.5-15.4) L D 01/24/17 02:59 Hct 33.0 % (35.3-44.9) L 01/24/17 02:59 Est GFR (Non-Af Amer) 56 (> 60) L 01/24/17 02:59 Glucose 105 mg/dL (70-99) H 01/24/17 02:59 AST 51 Units/L (5-34) H 01/24/17 02:59 Albumin 3.1 g/dL (3.5-5.0) L D 01/24/17 02:59 Albumin/Globulin Ratio 1.0 (1.1-2.2) L 01/24/17 02:59 Urine Clarity Cloudy (Clear) A 01/23/17 17:26 Ur Specific Norton 1.026 (1.010-1.025) H 01/23/17 17:26 Ur Leukocyte Esterase Moderate (Negative) H 01/23/17 17:26 Urine Microscopic RBC 5-15 per hpf (0-3) H 01/23/17 17: Urine Microscopic WBC 30-50 per hpf (0-3) H 01/23/17 17:26 Ur Squamous Epith Cells Many per lpf (None-Few) H 01/23/17 17:26 Ur Culture Indicated? YES (NO) A 01/23/17 17:26 Diabetes panel 01/24/17 Range/Units 02:59 Sodium 139 (136-145) mEq/L Potassium 4.4 (3.5-4.5) mEq/L Chloride 107 (98-109) mEq/L Carbon Dioxide 23 (19-29) mEq/L BUN 20 (7-20) mg/dL Creatinine 0.98 (0.57-1.11) mg/dL Glucose 105 H (70-99) mg/dL Calcium 8.8 D (8.6-10.8) mg/dL AST 51 H (5-34) Units/L ALT 47 (0-55) Units/L Alkaline Phosphatase 60 (38-126) Units/L Albumin 3.1 L D (3.5-5.0) g/dL Calcium panel 01/24/17 Range/Units 02:59 Calcium 8.8 D (8.6-10.8) mg/dL Albumin 3.1 L D (3.5-5.0) g/dL Pituitary panel 01/24/17 Range/Units 02:59 Sodium 139 (136-145) mEq/L Potassium 4.4 (3.5-4.5) mEq/L Chloride 107 (98-109) mEq/L Carbon Dioxide 23 (19-29) mEq/L BUN 20 (7-20) mg/dL Creatinine 0.98 (0.57-1.11) mg/dL Glucose 105 H (70-99) mg/dL Calcium 8.8 D (8.6-10.8) mg/dL Adrenal panel 01/24/17 Range/Units 02:59 Sodium 139 (136-145) mEq/L Potassium 4.4 (3.5-4.5) mEq/L Chloride 107 (98-109) mEq/L Carbon Dioxide 23 (19-29) mEq/L BUN 20 (7-20) mg/dL Creatinine 0.98 (0.57-1.11) mg/dL Glucose 105 H (70-99) mg/dL Calcium 8.8 D (8.6-10.8) mg/dL Total Bilirubin 0.4 (0.2-1.2) mg/dL AST 51 H (5-34) Units/L ALT 47 (0-55) Units/L Alkaline Phosphatase 60 (38-126) Units/L Albumin 3.1 L D (3.5-5.0) g/dL All other labs normal. - Imaging Abdominal x-ray: report reviewed, image reviewed CT scan - abdomen: report reviewed, image reviewed Consult Discharge Plan - Plan Instructions: Levofloxacin (By mouth), Urinary Tract Infection in Women (DC), Bowel Obstruction (DC) Referrals: Victor Hugo Fernandez, [Primary Care Provider] - (please call office thursday to set up appointment in 5-7 days.) Prescriptions: Levofloxacin [Levaquin] 500 mg PO DAILY #5 tablet <Honey Hilario - Last Filed: 01/25/17 12:21> Date of Encounter: 01/24/17 Time of Encounter: 12:00 Assessment and Plan (1) Small bowel obstruction Current Visit: Yes Status: Acute (2) GERD (gastroesophageal reflux disease) Current Visit: Yes Status: Acute Qualifiers: Esophagitis presence: without esophagitis Qualified Code(s): K21.9 - Gastro -esophageal reflux disease without esophagitis Review of Systems All systems PM: A 10-system review of systems was performed and is negative for pertinent findings except as documented above in the HPI. General Surgery Exam Initial Vital Signs Temp Pulse Resp BP Pulse Ox 98.2 F 82 16 158/83 96 01/23/17 14:52 01/23/17 14:52 01/23/17 14:52 01/23/17 14:52 01/23/17 14:52 - General physical appearance well developed, well nourished, no distress, no pain, obese - Eyes PERRL, normal ocular movement - ENT atraumatic, normocephalic - Neck trachea midline - Respiratory normal expansion, clear to auscultation - Cardiovascular Cardiovascular exam: Present: RRR - Abdomen Abdomen general surgery: Present: bowel sounds present, soft, non tender. Absent: distended, guarding, rebound - Integumentary Integumentary general surgery: Present: warm and dry, no abnormal pigmentation - Neurologic Present: CN 2-12 grossly intact, normal sensation - Musculoskeletal Present: normal gait, normal posture - Psychiatric Psychiatric general surgery: Present: A&Ox3, oriented to time Exam Initial Vital Signs Temp Pulse Resp BP Pulse Ox 98.2 F 82 16 158/83 96 01/23/17 14:52 01/23/17 14:52 01/23/17 14:52 01/23/17 14:52 01/23/17 14:52 Results - Labs 01/25/17 04:08 01/25/17 04:08 Abnormal lab results Hgb 11.1 g/dL (11.5-15.4) L 01/25/17 04:08 Hct 35.1 % (35.3-44.9) L 01/25/17 04:08 Chloride 111 mEq/L (98-109) H 01/25/17 04:08 Glucose 112 mg/dL (70-99) H 01/25/17 04:08 Calcium 8.1 mg/dL (8.6-10.8) L 01/25/17 04:08 AST 51 Units/L (5-34) H 01/24/17 02:59 Albumin 3.1 g/dL (3.5-5.0) L D 01/24/17 02:59 Albumin/Globulin Ratio 1.0 (1.1-2.2) L 01/24/17 02:59 Urine Clarity Cloudy (Clear) A 01/23/17 17:26 Ur Specific Norton 1.026 (1.010-1.025) H 01/23/17 17:26 Ur Leukocyte Esterase Moderate (Negative) H 01/23/17 17:26 Urine Microscopic RBC 5-15 per hpf (0-3) H 01/23/17 17:26 Urine Microscopic WBC 30-50 per hpf (0-3) H 01/23/17 17:26 Ur Squamous Epith Cells Many per lpf (None-Few) H 01/23/17 17:26 Ur Culture Indicated? YES (NO) A 01/23/17 17:26 Diabetes panel 01/25/17 Range/Units 04:08 Sodium 139 (136-145) mEq/L Potassium 4.1 (3.5-4.5) mEq/L Chloride 111 H (98-109) mEq/L Carbon Dioxide 20 (19-29) mEq/L BUN 11 (7-20) mg/dL Creatinine 0.76 (0.57-1.11) mg/dL Glucose 112 H (70-99) mg/dL Calcium 8.1 L (8.6-10.8) mg/dL Calcium panel 01/25/17 Range/Units 04:08 Calcium 8.1 L (8.6-10.8) mg/dL Pituitary panel 01/25/17 Range/Units 04:08 Sodium 139 (136-145) mEq/L Potassium 4.1 (3.5-4.5) mEq/L Chloride 111 H (98-109) mEq/L Carbon Dioxide 20 (19-29) mEq/L BUN 11 (7-20) mg/dL Creatinine 0.76 (0.57-1.11) mg/dL Glucose 112 H (70-99) mg/dL Calcium 8.1 L (8.6-10.8) mg/dL Adrenal panel 01/25/17 Range/Units 04:08 Sodium 139 (136-145) mEq/L Potassium 4.1 (3.5-4.5) mEq/L Chloride 111 H (98-109) mEq/L Carbon Dioxide 20 (19-29) mEq/L BUN 11 (7-20) mg/dL Creatinine 0.76 (0.57-1.11) mg/dL Glucose 112 H (70-99) mg/dL Calcium 8.1 L (8.6-10.8) mg/dL All other labs normal. - Imaging CT scan - abdomen: report reviewed, image reviewed CT scan - pelvis: report reviewed, image reviewed - Attending Attestation I examined this patient and my medical decision-making was reviewed with the MIRR[employer] DEPARTMENT SUPERVISOR/PA/Advanced Practice Nurse/Resident Physician. I agree with the documented findings, disposition and treatment plan as described except to the extent set forth below.
[2017-01-24] MEDS ORDERED: *HR* Enoxaparin 40 MG/0.4 ML SYRINGE SQ ONE (08:56)
[2017-01-24] MEDS ORDERED: Magnesium Sulfate 1 GM in D5% in Water 100 ML IVPB ONE (08:57)
[2017-01-24] MEDS: Pantoprazole 40 MG VIAL IVP SCH (09:45)
--- NOTE | 2017-01-24 12:01 | Internal Med Progress Note ---
Date of Encounter: 01/24/17 Time of Encounter: 11:59 - Assessment and plan (1) Small bowel obstruction Current Visit: Yes Status: Acute Assessment and plan: advance diet. follow sugical input, ivfluids. (2) UTI (urinary tract infection) Current Visit: No Status: Suspected Assessment and plan: continue with rocephin, gram negative rods in urine. Qualifiers: Urinary tract infection type: acute cystitis Hematuria presence: without hematuria Qualified Code(s): N30.00 - Acute cystitis without hematuria (3) DVT prophylaxis Current Visit: Yes Status: Acute - Subjective Interval history: 1st encounter with the patient. Patient denies abdominal pain or vomiting. Was evaluated by surgery. No fever. - Constitutional Vitals: Temp Pulse Resp BP Pulse Ox 98.1 F 61 18 130/70 95 01/24/17 10:48 01/24/17 10:48 01/24/17 10:48 01/24/17 10:48 01/24/17 10:48 General appearance: Present: cooperative, A&O X 3, pleasant, no acute distress, answers questions appropriately - Head Head exam: Present: atraumatic, normocephalic - Eye Eye exam: Present: PERRL, conjuntiva pink, sclera anicteric Pupils: Present: PERRL - Neck Neck exam general surgery: Present: supple, trachea midline. Absent: lymphadenopathy - Respiratory Respiratory exam: Present: CTAB. Absent: accessory muscle use, rales, rhonchi, wheezes - Cardiovascular Cardiovascular exam: Present: RRR, +S1, +S2. Absent: diastolic murmur, gallop, rubs, systolic murmur - GI/Abdominal GI/Abdominal exam: Present: normal bowel sounds, soft, no peritoneal signs. Absent: distended, tenderness - Extremities Exam Extremities exam: Present: warm, radial pulses palpable and symetrical. Absent : calf tenderness, cyanotic, pedal edema - Neurological Exam Neurological exam: Present: CN II-XII intact, oriented X3, no focal deficits. Absent: pronater drift, facial droop, speech deficit - Skin Skin exam: Present: dry, intact Internal Medicine: Result - Labs CBC & Chem 7: 01/24/17 02:59 01/24/17 02:59 Labs: Short CBC 01/24/17 Range/Units 02:59 WBC 9.8 (4.3-11.1) K/mcL Hgb 11.0 L D (11.5-15.4) g/dL Hct 33.0 L (35.3-44.9) % Plt Count 286 (140-400) K/mcL Neutrophils # 6.8 (1.6-8.9) K/mcL BMP 01/24/17 02:59 Sodium 139 Potassium 4.4 Chloride 107 Carbon Dioxide 23 BUN 20 Creatinine 0.98 Glucose 105 H Calcium 8.8 D Liver Function 01/24/17 Range/Units 02:59 Total Bilirubin 0.4 (0.2-1.2) mg/dL AST 51 H (5-34) Units/L ALT 47 (0-55) Units/L Alkaline Phosphatase 60 (38-126) Units/L Albumin 3.1 L D (3.5-5.0) g/dL Consult Discharge Plan - Plan Referrals: Victor Hugo Fernandez DO [Primary Care Provider] -
[2017-01-24] MEDS ORDERED: Lisinopril 20 MG TABLET PO SCH (22:00)
[2017-01-24] MEDS: amLODIPine 5 MG TABLET PO SCH (22:02)
[2017-01-25] MEDS: 0.9 % Sodium Chloride w KCl 20 MEQ/1,000 ML MLS IVC SCH (00:49)
[2017-01-25 04:42] LABS: Basophils # 0.1 K/mcL (0.0-0.2); Basophils % 1.4 %; Eosinophils # 0.3 K/mcL (0.0-0.6); Eosinophils % 4.4 %; Hematocrit 35.1 % (35.3-44.9); Hemoglobin 11.1 g/dL (11.5-15.4); Immature Granulocytes % 1.6 % (0-4); Lymphocytes # 1.5 K/mcL (0.6-4.6); Mean Corpuscular HGB Conc 31.6 g/dL (31.6-35.5); Mean Corpuscular Hemoglobin 28.5 pg (28.0-33.3); Mean Corpuscular Volume 90.2 fL (83.0-100.0); Mean Platelet Volume 9.9 fL (9.4-12.4); Monocytes # 0.5 K/mcL (0.0-1.3); Monocytes % 7.9 %; Neutrophils # 3.4 K/mcL (1.6-8.9); Platelet Count 276 K/mcL (140-400); Red Blood Count 3.89 M/mcL (3.82-4.97); Red Cell Distribution Width 13.2 % (11.5-14.5); Segmented Neutrophils % 58.7 %
[2017-01-25 04:53] LABS: BUN/Creatinine Ratio 14 (6-26); Blood Urea Nitrogen 11 mg/dL (7-20); Calcium 8.1 mg/dL (8.6-10.8); Carbon Dioxide 20 mEq/L (19-29); Chloride 111 mEq/L (98-109); Glucose 112 mg/dL (70-99); Magnesium 1.8 mg/dL (1.6-2.6); Osmolality,Calculated 288 (280-300); Potassium 4.1 mEq/L (3.5-4.5); Sodium 139 mEq/L (136-145); eGFR For African Americans > 60 (> 60); eGFR For Non-African Americans > 60 (> 60)
[2017-01-25] MEDS ORDERED: *HR* Enoxaparin 40 MG/0.4 ML SYRINGE SQ SCH (06:00)
[2017-01-25] MEDS: amLODIPine 5 MG TABLET PO SCH (08:06)
[2017-01-25] MEDS: Pantoprazole 40 MG VIAL IVP SCH (08:07)
[2017-01-25] MEDS ORDERED: Levothyroxine 25 MCG TABLET PO SCH (09:00)
--- NOTE | 2017-01-25 09:14 | General Surgery Progress Note ---
Date of Encounter: 01/25/17 Time of Encounter: 06:30 - Assessment and Plan (1) Small bowel obstruction Current Visit: Yes Status: Acute Patient presented with abdominal pain, nausea, vomiting, diarrhea yesterday with CT findings concerning for small bowel obstruction with a gradual transition in the right lower quadrant. Patient was admitted for medical management of small bowel obstruction on 01/24/17. Patient has a history of small bowel obstruction on 01/12/17 and was medically managed by Dr. Zamora at that time. On admission, patient adamantly refused NG tube placement for decompression, reported 4 bowel movements in the ED with subsequent resolution of nausea and vomiting. Abdominal surgeries include cholecystectomy in 2012, complete hysterectomy in 1994, in 1976. anal cancer November 2009 with subsequent chemotherapy and radiation therapy. Recommend medical management of small bowel obstruction at this time, patient has active bowel sounds and is passing stool and gas. Patient is without abdominal tenderness, nausea, vomiting. There is no rebound or rigidity. Nonsurgical abdomen. Vital signs are stable. WBC is within normal limits at 5.7. Electrolytes remain stable. From surgical standpoint patient is stable. Okay to discharge when appropriate. Discharge per medical team. Plan: -Medical management of small bowel obstruction -Advance to soft diet as she is passing flatus and having bm -Continue IV hydration, serial abdominal exams, monitoring electrolytes and vital signs. Discharge planning: From surgical standpoint patient is stable. Okay to discharge when appropriate. Discharge per medical team. (2) GERD (gastroesophageal reflux disease) Current Visit: Yes Status: Acute Continue PPI IV while NPO Advance meds to oral as tolerated Qualifiers: Esophagitis presence: without esophagitis Qualified Code(s): K21.9 - Gastro -esophageal reflux disease without esophagitis Subjective Patient reports: no new complaints (Patient reports that she stooled 2 times last night and that she is ready for "real food "tired of the liquid diet.), feels better, tolerating liquids well, voiding w/o difficulty, flatus, bowel movement, afebrile Objective Vital Signs - Last 8 Hours Temp Pulse Resp BP Pulse Ox 01/25/17 06:58 98.3 F 61 18 171/71 97 01/25/17 03:48 98.1 F 78 16 143/68 98 Intake and Output 01/24/17 01/25/17 01/25/17 23:59 07:59 15:59 Intake Total 200 / 200 1100 / 1100 240 / 240 Output Total 1000 / 1000 1100 / 1100 400 / 400 Balance -800 / -800 0 / 0 -160 / -160 Intake: IV Fluids 1100 / 1100 KCl 20 mEq in 0.9% Sodium 1000 / 1000 Chloride 20 meq In 1,000 ml @ 100 mls/hr IVC . Q10H [facility] Rx#:[id number] Rocephin 1,000 MG In 100 / 100 Dextrose 5% (Minibag+) 100 ML 100 ML @ 200 mls/ hr IVPB Q24H [facility] Rx#: [id number] Oral 200 / 200 240 / 240 Output: Urine 1000 / 1000 1100 / 1100 400 / 400 Other: Meal Breakfast Percent of Meal Consumed 50% Stool Size Large Stool Consistency loose soft Stool Characteristics Normal for Patient Stool Color Brown # Voids 1 Weight 80.314 kg Patient Weight 01/25/17 23:59 Weight 80.314 kg - General physical appearance well developed, well nourished, no distress, no pain, obese - Eyes normal ocular movement - ENT dry mucosa, atraumatic, normocephalic - Neck Neck exam: trachea midline, no venous distension - Respiratory normal expansion, normal respiratory effort, clear to auscultation - Cardiovascular Cardiovascular exam: Present: RRR, murmurs (Systolic. ). Absent: JVD - Abdomen Abdomen: Present: bowel sounds present, soft, non tender. Absent: guarding, rebound - Integumentary no rash, no abnormal pigmentation, other (Warm and dry) - Neurologic CN 2-12 grossly intact, normal sensation - Musculoskeletal normal posture - Psychiatric oriented to time, oriented to person, oriented to place, speech is normal - Labs 01/25/17 04:08 01/25/17 04:08 Vital Signs Temp Pulse Resp BP Pulse Ox 01/25/17 11:07 97.7 F 90 18 170/65 98 01/25/17 06:58 98.3 F 61 18 171/71 97 01/25/17 03:48 98.1 F 78 16 143/68 98 01/25/17 00:14 97.7 F 76 14 147/72 97 01/24/17 18:56 97.9 F 68 12 183/69 99 01/24/17 15:38 97.7 F 59 18 146/63 98 Intake and Output 0501/25/17 01/25/17 23:59 07:59 15:59 Intake Total 200 / 200 1100 / 1100 240 / 240 Output Total 1000 / 1000 1100 / 1100 400 / 400 Balance -800 / -800 0 / 0 -160 / -160 Intake: IV Fluids 1100 / 1100 KCl 20 mEq in 0.9% Sodium 1000 / 1000 Chloride 20 meq In 1,000 ml @ 100 mls/hr IVC . Q10H [facility] Rx#:[id number] Rocephin 1,000 MG In 100 / 100 Dextrose 5% (Minibag+) 100 ML 100 ML @ 200 mls/ hr IVPB Q24H [facility] Rx#: [id number] Oral 200 / 200 240 / 240 Output: Urine 1000 / 1000 1100 / 1100 400 / 400 Other: Meal Dinner Breakfast Percent of Meal Consumed 100% 50% Stool Size Large Stool Consistency loose soft Stool Characteristics Normal for Patient Stool Color Brown # Voids 1 Weight 80.314 kg Patient Weight 01/25/17 23:59 Weight 80.314 kg Short CBC 01/25/17 Range/Units 04:08 WBC 5.7 (4.3-11.1) K/mcL Hgb 11.1 L (11.5-15.4) g/dL Hct 35.1 L (35.3-44.9) % Plt Count 276 (140-400) K/mcL Neutrophils # 3.4 (1.6-8.9) K/mcL BMP 01/25/17 Range/Units 04:08 Sodium 139 (136-145) mEq/L Potassium 4.1 (3.5-4.5) mEq/L Chloride 111 H (98-109) mEq/L Carbon Dioxide 20 (19-29) mEq/L BUN 11 (7-20) mg/dL Creatinine 0.76 (0.57-1.11) mg/dL Glucose 112 H (70-99) mg/dL Calcium 8.1 L (8.6-10.8) mg/dL Consult Discharge Plan - Plan Instructions: Levofloxacin (By mouth), Urinary Tract Infection in Women (DC), Bowel Obstruction (DC) Referrals: Victor Hugo Fernandez, [Primary Care Provider] - (please call office thursday to set up appointment in 5-7 days.) Prescriptions: Levofloxacin [Levaquin] 500 mg PO DAILY #5 tablet - Attending Attestation I examined this patient and my medical decision-making was reviewed with the ACADEMIC VICE PRESIDENT/PA/Advanced Practice Nurse/Resident Physician. I agree with the documented findings, disposition and treatment plan as described except to the extent set forth below.
[2017-01-25 11:08] VITALS: BP 170/65
--- NOTE | 2017-01-25 11:09 | Discharge Summary ---
Date of Encounter: 01/25/17 Time of Encounter: 11:06 - Discharge Diagnosis (1) Small bowel obstruction Priority: Primary Status: Acute (2) UTI (urinary tract infection) Priority: Secondary Status: Suspected Qualifiers: Urinary tract infection type: acute cystitis Hematuria presence: without hematuria Qualified Code(s): N30.00 - Acute cystitis without hematuria (3) DVT prophylaxis Priority: Secondary Status: Acute - Discharge Medications Prescriptions: Levofloxacin [Levaquin] 500 mg PO DAILY #5 tablet Home Medications: Amlodipine [Amlodipine Besylate] 10 mg PO DAILY 08/31/15 [History] Aspirin Enteric Coated [Aspirin EC] 81 mg PO DAILY 08/31/15 [History] Gabapentin [Neurontin] 100 mg PO HS 08/31/15 [History] Lisinopril [Zestril] 40 mg PO HS 08/31/15 [History] Omeprazole [PriLOSEC] 20 mg PO BID 08/31/15 [History] Calcium Carbonate [Calcium] 1,000 mg PO DAILY 05/03/16 [History] Ergocalciferol (VITAMIN D2) [Vitamin D] 800 unit PO DAILY 05/03/16 [History] Ranitidine HCl [Zantac] 150 mg PO HS 05/03/16 [History] Ferrous Sulfate 325 mg PO BIDWM #60 tablet 06/12/16 [Rx] Levothyroxine [Synthroid] 25 mcg PO QAM 06/23/16 [History] Oxybutynin Chloride [Ditropan Xl] 10 mg PO HS 06/23/16 [History] Raloxifene [Evista] 60 mg PO DAILY #30 tablet 11/14/16 [Rx] Bisoprolol/HCTZ 10/6.25 [Ziac 10/6.25] 1 tab PO DAILY 11/18/16 [History] Cetirizine HCl [All Day Allergy] 10 mg PO DAILY PRN 01/11/17 [History] Docusate [Colace] 100 mg PO BID PRN #60 capsule 01/13/17 [Rx] Levofloxacin [Levaquin] 500 mg PO DAILY #5 tablet 01/25/17 [Rx] Allergies/Adverse Reactions: Allergies latex Allergy (Verified 11/18/16 09:35) Hives Date of admission: 01/24/17 18:40 Primary care physician: Victor Hugo Fernandez Discharging clinician: Carl Singh Anticipated date of discharge: 01/25/17 - Patient Status Disposition: Home, Self-Care Condition: Fair Functional capacity at discharge: independent ambulation Overall status at discharge: patient is back to baseline - Discharge Instructions Instructions: Bowel Obstruction (DC) Follow Up With: Victor Hugo Fernandez DO [Primary Care Provider] - - Diet and Activity Activity: increase activity as tolerated Diet: advance to your usual diet Interval History: Ms. Bhatti is a 71 year old female who presents to the ER today with a 1-2 day history of abdominal pain, cramping, and nausea followed by severe and intense pain today. Workup in the ER revealed patient to have a small bowel obstruction on CAT scan. She was therefore admitted to the hospitalist service with a consult to general surgery. Dr. Hilario was contacted by the ER, and she said she will see patient in consultation and agreed with conservative measures initially. Upon my assessment of the patient, she currently feels better. Her abdominal pain has improved significantly, but she is still distended. She denies any fevers, chills, chest pain, or shortness breath. She does have a little dysuria , however. Since her initial presentation to ER, she has passed flatus and actually had moved her bowels 4 times now. She states she feels much better after moving her bowels. She denies any complaints presently otherwise. Risk factors for bowel obstruction include prior abdominal surgery including hysterectomy, , and cholecystectomy. Additionally, she had rectal cancer several years ago treated with radiation and chemotherapy. Has tolerated diet, no nausea or vomiting snce admission, had bowel movemets in houe, no fever, no surgical interventions planned and [facility] team signed off. Urine culture revealed pansensitive e coli, will d/c her on po levaquin. D/C home today. Hospital course: Ms. Bhatti is a 71 year old female Patient presented with abdominal pain, nausea, vomiting, diarrhea yesterday with CT findings concerning for small bowel obstruction with a gradual transition in the right lower quadrant. Patient was admitted for medical management of small bowel obstruction on 01/24/17. Patient has a history of small bowel obstruction on 01/12/17 and was medically managed by Dr. Zamora at that time. On admission, patient adamantly refused NG tube placement for decompression, reported 4 bowel movements in the ED with subsequent resolution of nausea and vomiting. Abdominal surgeries include cholecystectomy in 2012, complete hysterectomy in 1994, in 1976. anal cancer November 2009 with subsequent chemotherapy and radiation therapy. - Time Spent with Patient Total time spent providing and/or coordinating discharge services: - Constitutional Vitals: Temp Pulse Resp BP Pulse Ox 98.3 F 61 18 171/71 97 01/25/17 06:58 01/25/17 06:58 01/25/17 06:58 01/25/17 06:58 01/25/17 06:58 General appearance: Present: cooperative, A&O X 3, pleasant, no acute distress, answers questions appropriately - Head Head exam: Present: atraumatic, normocephalic - Eye Eye exam: Present: PERRL, conjuntiva pink, sclera anicteric Pupils: Present: PERRL - Neck Neck exam general surgery: Present: supple, trachea midline. Absent: lymphadenopathy - Respiratory Respiratory exam: Present: CTAB. Absent: accessory muscle use, rales, rhonchi, wheezes - Cardiovascular Cardiovascular exam: Present: RRR, +S1, +S2. Absent: diastolic murmur, gallop, rubs, systolic murmur - GI/Abdominal GI/Abdominal exam: Present: normal bowel sounds, soft, no peritoneal signs. Absent: distended, tenderness - Extremities Exam Extremities exam: Present: warm, radial pulses palpable and symetrical. Absent : calf tenderness, cyanotic, pedal edema - Neurological Exam Neurological exam: Present: CN II-XII intact, oriented X3, no focal deficits. Absent: pronater drift, facial droop, speech deficit - Skin Skin exam: Present: dry, intact
== END 2017-01-25 12:22 | disposition home or self-care (01) | DRG 389 ==
LOC: EMEROO 14:39 → 2ANU 14:39
PROVIDERS: ADMIT Internal Medicine; ATTEND Internal Medicine

== ENCOUNTER 2018-06-02 20:52 | Observation (INO) ==
[2018-06-02] MEDS ORDERED: Ondansetron 4 MG/2 ML VIAL IVP ONE (22:18)
[2018-06-02] MEDS ORDERED: 0.9 % Sodium Chloride 1,000 ML IVC ONE (22:18)
[2018-06-02] MEDS ORDERED: *HR* FentaNYL (PF) 100 MCG/2 ML VIAL IVP ONE (22:18)
--- NOTE | 2018-06-02 22:28 | Emergency Department Note ---
Disposition Clinical Impression: Kidney stone on right side, Hydronephrosis Disposition: Admitted As Inpatient Condition: Fair Time of Disposition: 00:03 Abdominal Pain HPI - General Chief Complaint: ED Abdominal Pain Stated Complaint: RLQ pain Time Seen by Provider: 06/02/18 21:36 Source: patient Limitations: no limitations Nursing Notes Reviewed: Yes Vital Signs Reviewed: Yes - History of Present Illness HPI Narrative: Kenzie Bhatti is a 72-yo female pt with PMHx of HTN, hypothyroidism, GERD, constipation on daily stool softeners, hospitalization for bowel obstruction, cholecystectomy, hysterectomy, and anal cancer treated with chemoradiation that is in remission. She presents to [facility] ED with RLQ abdominal pain that was gradual in onset and has been constant and increasing since this morning. She describes it as dull, achy, 9/10 pain that has no aggravating factors and is not relieved by zofran. She is also complaining of nausea, nonbloody emesis 1-2 times, and small amounts of watery diarrhea, but no fever, chills, anorexia, flank pain, or urinary symptoms. She has no other complaints at this time. I have re-performed and reviewed the history documented by the medical student, and I confirm its accuracy except as noted below I saw the patient with the medical student as stated above. She did note that she had right lower quadrant abdominal pain and was 10 out of 10 nonradiating localized that one area. Patient is never had an appendectomy but has had a cholecystectomy and hysterectomy. Patient does have history of anal cancer. Says she has never had a kidney stone before. Says had no difficulty in urination or pain with urination said no fevers or chills. Says the pain came on all of a sudden today describes as sharp and stabbing. Patient has had nausea has had emesis nonbloody 1-2 times did have a few bouts of watery diarrhea but is still able to have bowel movements. Pt Subjective Complaint: abdominal pain Onset (ago): hour(s) (14) Consistency: constant, Worsening Location: RLQ Pain Severity: severe Pain Scale: 7 Quality: aching, dull Radiation: none Migration to: no migration Improves with: nothing Worsens with: nothing Associated symptoms: Reports: nausea, vomiting, diarrhea - Related Data Home Medications Medication Instructions Recorded Confirmed Amlodipine [Amlodipine Besylate] 10 mg PO DAILY 08/31/15 02/23/18 Aspirin Enteric Coated [Aspirin EC] 81 mg PO DAILY 08/31/15 02/23/18 Gabapentin [Neurontin] 100 mg PO HS 08/31/15 02/23/18 Lisinopril [Zestril] 40 mg PO HS 08/31/15 02/23/18 Calcium Carbonate [Calcium] 500 mg PO BID 05/03/16 02/23/18 Ergocalciferol (VITAMIN D2) 800 unit PO DAILY 05/03/16 02/23/18 [Vitamin D] raNITIdine HCl [Zantac] 150 mg PO HS 05/03/16 02/23/18 Levothyroxine [Synthroid] 25 mcg PO QAM 06/23/16 02/23/18 Oxybutynin Chloride [Ditropan Xl] 10 mg PO HS 06/23/16 02/23/18 Bisoprolol/HCTZ 106.25 [Ziac 1 tab PO DAILY 11/18/16 02/23/18 106.25] Cetirizine HCl [All Day Allergy] 10 mg PO DAILY PRN 01/11/17 02/23/18 Ondansetron HCl [Zofran] 4 mg PO TID PRN 10/14/17 02/23/18 Atorvastatin [Lipitor] 40 mg PO HS 02/23/18 02/23/18 Pantoprazole Sodium [Protonix] 40 mg PO DAILY 02/23/18 02/23/18 Bisoprolol Fumarate 04/21/18 Gabapentin 04/21/18 Levothyroxine 04/21/18 Previous Rx's Medication Instructions Recorded Ferrous Sulfate 325 mg PO BIDWM #60 tablet 06/12/16 Raloxifene [Evista] 60 mg PO DAILY #30 tablet 11/14/16 Docusate [Colace] 100 mg PO BID PRN #60 capsule 01/13/17 Hydrocortisone 2.5% CREAM [Cortaid] 1 appl TP BID 7 Days #1 tube 04/21/18 cephALEXin [Cephalexin] 500 mg PO BID #20 tablet 04/21/18 Allergies Allergy/AdvReac Type Severity Reaction Status Date / Time latex Allergy Hives Verified 04/21/18 13:53 All systems ED: reviewed and negative except as stated. Review of Systems: As Per HPI Constitutional: Reports: as per HPI. Denies: fever, chills, weakness, weight change, night sweats Eyes: Denies: eye pain, eye discharge, vision change ENT ED: Denies: ear pain, throat pain, dental pain, hearing loss, epistaxis, congestion, dysphagia Cardiovascular: Denies: chest pain, palpitations Respiratory: Denies: cough, dyspnea Gastrointestinal: Reports: abdominal pain, nausea, vomiting, diarrhea. Denies: melena, hematochezia Genitourinary: Denies: urgency, dysuria, frequency, hematuria Musculoskeletal: Denies: back pain Neurological: Denies: headache, weakness Psychiatric: Denies: anxiety, depression, suicidal thoughts, homicidal thoughts , auditory hallucinations, visual hallucinations Endocrine: Denies: fatigue Hematological/Lymphatic: Denies: easy bleeding, easy bruising Allergic/Immunologic: Denies: facial swelling, urticaria Abdominal Pain PMH - Past Medical History Medical history: Reports: arthritis, cancer, cardiomyopathy, GERD, GI bleed, hyperlipidemia, hypertension, kidney stones, liver disease, osteoporosis, renal disease, thyroid disease, valvular heart disease, other Female Surgical History: Reports: cholecystectomy, hysterectomy 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 Her heart has RRR and lungs are CTAB. Her abdomen is soft and distended with tenderness in the RLQ, with rebound tenderness but minimal guarding. Rovsing's sign, heel tap sign, obturator sign, and psoas sign are negative. She has no flank pain or suprapubic pain. Mucous membranes are moist and lower extremities show no swelling. No other pertinent findings on exam. - General Limitations: no limitations General appearance: alert, in no apparent distress - Head Head exam: atraumatic, normocephalic - Eye Eye exam: Present: normal appearance. Absent: scleral icterus - ENT ENT exam: normal oropharynx, mucous membranes moist - Respiratory Respiratory exam: Present: normal lung sounds bilaterally. Absent: respiratory distress, wheezes - Cardiovascular Cardiovascular exam: Present: regular rate - Abdominal Exam Abdominal exam: Present: soft, tenderness (Right lower quadrant with palpation worse with pressure with palpation), distention, guarding, rebound, tenderness at McBurney's Point. Absent: rigidity, heel tap sign, Mace's sign, Rovsing's sign Abdominal tenderness: Present: RLQ - Extremities Exam Extremities exam: Present: normal inspection. Absent: pedal edema - Back Exam Back exam: Present: normal inspection. Absent: CVA tenderness (R), CVA tenderness (L) - Neurological Exam Neurological exam: Present: alert, oriented X3 - Psychiatric Psychiatric exam: Present: normal affect, normal mood - Skin Skin exam: Present: warm, dry, intact Course Course Narrative: 72-year-old female presents to the emergency department with right lower quadrant pain. We will do basic labs including CBC, CMP, lipase as well as urinalysis and CT abdomen and pelvis without contrast. Patient is okay with the plan. We will give IV fluids as well as fentanyl and Zofran for pain and nausea control. Vital Signs Temperature 98.0 F 06/02/18 21:09 Pulse Rate 75 06/02/18 21:09 Respiratory Rate 16 06/02/18 21:09 Blood Pressure 189/67 06/02/18 21:09 O2 Sat by Pulse Oximetry 98 06/02/18 21:09 Temperature 98.1 F 06/03/18 01:27 Pulse Rate 82 06/03/18 01:27 Respiratory Rate 15 06/03/18 01:27 Blood Pressure 180/80 06/03/18 01:27 O2 Sat by Pulse Oximetry 98 06/03/18 01:27 Oxygen Delivery Oxygen Delivery Room Air Abdominal Pain - MDM Narrative Medical decision making narrative: 72-year-old female presented to the emergency department with right lower quadrant abdominal pain. All labs came back normal patient did have a lactic acidosis patient was given 1 L of IV fluids repeat was ordered. Patient just small leukocytosis most likely secondary to nausea vomiting as well as patient' s pain. CT abdomen and pelvis without contrast did show a right-sided kidney stone was 7 mm with hydronephrosis. Patient most likely needs this be retrieved by urology. Urology consult was placed but we did not call them. Due to patient needing urology consultation patient was admitted to the hospitalist. Patient's admitted in stable condition. Dr. Boggs agreed to accept the patient to their service. Patient was given fentanyl and Zofran to the did help with pain control as well as nausea. Abdomen/Pelvis CT 06/02/18 21:37 IMPRESSION: [id number] right-sided hydronephrosis secondary to a stone in the distal ureter. D/ / Drew Birmingham MD / Drew Birmingham MD Interpreting Provider: Drew Birmingham MD - Medical Records Medical records reviewed: Yes I reviewed the patient's medical records. - Lab Data Lab results reviewed: Yes I reviewed the patient's lab results. Result diagrams: 06/02/18 22:30 06/02/18 22:30 Lab Results 06/02/18 06/02/18 06/02/18 Range/Units 22:30 22:30 22:30 WBC 11.5 H (4.3-11.1) K/mcL RBC 3.83 (3.82-4.97) M/mcL Hgb 10.6 L (11.5-15.4) g/dL Hct 32.2 L (35.3-44.9) % MCV 84.1 (83.0-100.0) fL MCH 27.7 L (28.0-33.3) pg MCHC 32.9 (31.6-35.5) g/dL RDW 12.6 (11.5-14.5) % Plt Count 276 (140-400) K/mcL MPV 10.4 (9.4-12.4) fL Immature Gran % 1.1 (0-4) % Seg Neutrophils % 78.9 % Lymphocytes % 12.3 % Monocytes % 5.9 % Eosinophils % 0.9 % Basophils % 0.9 % Neutrophils # 9.1 H (1.6-8.9) K/mcL Lymphocytes # 1.4 (0.6-4.6) K/mcL Monocytes # 0.7 (0.0-1.3) K/mcL Eosinophils # 0.1 (0.0-0.6) K/mcL Basophils # 0.1 (0.0-0.2) K/mcL Sodium 133 L (136-145) mEq/L Potassium 4.2 (3.5-5.1) mEq/L Chloride 101 (98-107) mEq/L Carbon Dioxide 24 (23-29) mEq/L BUN 17 (8-23) mg/dL Creatinine 0.96 (0.60-1.20) mg/dL Est GFR ( Amer) > 60 (> 60) Est GFR (Non-Af Amer) 57 L (> 60) BUN/Creatinine Ratio 18 (6-26) Glucose 189 H (70-105) mg/dL Calculated Osmolality 283 (280-300) Lactic Acid 2.9 H (0.5-2.2) mmol/L Calcium 9.1 (8.6-10.3) mg/dL Total Bilirubin 0.2 L (0.3-1.0) mg/dL AST 60 H (13-39) Units/L ALT 31 (7-52) Units/L Alkaline Phosphatase 77 (34-104) Units/L Serum Total Protein 6.7 (6.4-8.9) g/dL Albumin 3.6 (3.5-5.7) g/dL Globulin 3.1 (2.4-3.5) g/dL Albumin/Globulin Ratio 1.2 (1.1-2.2) Lipase 15 (11-82) Units/L Urine Color (Yellow) Urine Clarity (Clear) Urine pH (5.0-8.0) pH Units Ur Specific Newberry (1.010-1.025) Urine Protein (Neg-Trace) mg/dL Urine Glucose (UA) (Normal) mg/dL Urine Ketones (Negative) mg/dL Urine Blood (Negative) Urine Nitrite (Negative) Urine Bilirubin (Negative) Urine Urobilinogen (Normal) mg/dL Ur Leukocyte Esterase (Negative) Urine Microscopic RBC (0-3) per hpf Urine Microscopic WBC (0-3) per hpf Ur Squamous Epith Cells (None-Few) per lpf Urine Bacteria (None-Few) per hpf Hyaline Casts (None-Few) per lpf Ur Culture Indicated? (NO) 06/02/18 06/03/18 Range/Units 22:39 00:16 WBC (4.3-11.1) K/mcL RBC (3.82-4.97) M/mcL Hgb (11.5-15.4) g/dL Hct (35.3-44.9) % MCV (83.0-100.0) fL MCH (28.0-33.3) pg MCHC (31.6-35.5) g/dL RDW (11.5-14.5) % Plt Count (140-400) K/mcL MPV (9.4-12.4) fL Immature Gran % (0-4) % Seg Neutrophils % % Lymphocytes % % Monocytes % % Eosinophils % % Basophils % % Neutrophils # (1.6-8.9) K/mcL Lymphocytes # (0.6-4.6) K/mcL Monocytes # (0.0-1.3) K/mcL Eosinophils # (0.0-0.6) K/mcL Basophils # (0.0-0.2) K/mcL Sodium (136-145) mEq/L Potassium (3.5-5.1) mEq/L Chloride (98-107) mEq/L Carbon Dioxide (23-29) mEq/L BUN (8-23) mg/dL Creatinine (0.60-1.20) mg/dL Est GFR ( Amer) (> 60) Est GFR (Non-Af Amer) (> 60) BUN/Creatinine Ratio (6-26) Glucose (70-105) mg/dL Calculated Osmolality (280-300) Lactic Acid 2.7 H (0.5-2.2) mmol/L Calcium (8.6-10.3) mg/dL Total Bilirubin (0.3-1.0) mg/dL AST (13-39) Units/L ALT (7-52) Units/L Alkaline Phosphatase (34-104) Units/L Serum Total Protein (6.4-8.9) g/dL Albumin (3.5-5.7) g/dL Globulin (2.4-3.5) g/dL Albumin/Globulin Ratio (1.1-2.2) Lipase (11-82) Units/L Urine Color Yellow (Yellow) Urine Clarity Clear (Clear) Urine pH 5.5 (5.0-8.0) pH Units Ur Specific Newberry 1.016 (1.010-1.025) Urine Protein Negative (Neg-Trace) mg/dL Urine Glucose (UA) Normal (Normal) mg/dL Urine Ketones Negative (Negative) mg/dL Urine Blood Moderate H (Negative) Urine Nitrite Negative (Negative) Urine Bilirubin Negative (Negative) Urine Urobilinogen Normal (Normal) mg/dL Ur Leukocyte Esterase Small H (Negative) Urine Microscopic RBC 5-15 H (0-3) per hpf Urine Microscopic WBC 5-15 H (0-3) per hpf Ur Squamous Epith Cells Many H (None-Few) per lpf Urine Bacteria None Seen (None-Few) per hpf Hyaline Casts None Seen (None-Few) per lpf Ur Culture Indicated? NO. A (NO) - Radiology Data Radiology results reviewed: Yes I reviewed the patient's radiology results. Attestation Statement - Attestation Attestation: I examined this patient and my medical decision-making was reviewed with the Resident Physician. I agree with the documented findings, disposition and treatment plan as described except to the extent set forth below. Findings consistent with kidney stone. The patient does have a significant stone burden and we will proceed with admission for pain control and urology consultation for possible retrieval tomorrow.
[2018-06-02 22:41] LABS: Basophils # 0.1 K/mcL (0.0-0.2); Basophils % 0.9 %; Eosinophils # 0.1 K/mcL (0.0-0.6); Eosinophils % 0.9 %; Hematocrit 32.2 % (35.3-44.9); Hemoglobin 10.6 g/dL (11.5-15.4); Immature Granulocytes % 1.1 % (0-4); Lymphocytes # 1.4 K/mcL (0.6-4.6); Lymphocytes % 12.3 %; Mean Corpuscular HGB Conc 32.9 g/dL (31.6-35.5); Mean Corpuscular Hemoglobin 27.7 pg (28.0-33.3); Mean Corpuscular Volume 84.1 fL (83.0-100.0); Mean Platelet Volume 10.4 fL (9.4-12.4); Monocytes # 0.7 K/mcL (0.0-1.3); Monocytes % 5.9 %; Neutrophils # 9.1 K/mcL (1.6-8.9); Platelet Count 276 K/mcL (140-400); Red Blood Count 3.83 M/mcL (3.82-4.97); Red Cell Distribution Width 12.6 % (11.5-14.5); Segmented Neutrophils % 78.9 %
[2018-06-02 22:56] LABS: Bilirubin,Urine Negative (Negative); Blood,Urine Moderate (Negative); Clarity,Urine Clear (Clear); Color,Urine Yellow (Yellow); Glucose,Urine (UA) Normal (Normal); Ketones,Urine Negative (Negative); Leukocyte Esterase,Urine Small (Negative); Nitrite,Urine Negative (Negative); PH,Urine 5.5 pH Units (5.0-8.0); Protein,Urine Negative (Neg-Trace); Specific Gravity,Urine 1.016 (1.010-1.025); Urobilinogen,Urine Normal (Normal)
[2018-06-02 22:58] LABS: Bacteria,Urine None Seen per hpf (None-Few); Hyaline Casts,Urine None Seen per lpf (None-Few); Squamous Epithelial Cell,Urine Many per lpf (None-Few)
[2018-06-02 23:01] LABS: Alanine Aminotransferase 31 Units/L (7-52); Albumin 3.6 g/dL (3.5-5.7); Albumin/Globulin Ratio 1.2 (1.1-2.2); Alkaline Phosphatase 77 Units/L (34-104); Aspartate Amino Transferase 60 Units/L (13-39); BUN/Creatinine Ratio 18 (6-26); Bilirubin,Total 0.2 mg/dL (0.3-1.0); Blood Urea Nitrogen 17 mg/dL (8-23); Calcium 9.1 mg/dL (8.6-10.3); Carbon Dioxide 24 mEq/L (23-29); Chloride 101 mEq/L (98-107); Globulin 3.1 g/dL (2.4-3.5); Glucose 189 mg/dL (70-105); Lipase 15 Units/L (11-82); Osmolality,Calculated 283 (280-300); Potassium 4.2 mEq/L (3.5-5.1); Sodium 133 mEq/L (136-145); Total Protein 6.7 g/dL (6.4-8.9); eGFR For Non-African Americans 57 (> 60)
[2018-06-03] MEDS ORDERED: *HR* FentaNYL (PF) 100 MCG/2 ML VIAL IVP ONE (00:32)
[2018-06-03] MEDS ORDERED: OXYCODONE Oral CONC 10 MG/0.5 ML ORAL.SYG SL PRN ×4 (04:38→12:20)
[2018-06-03] MEDS ORDERED: Ondansetron 4 MG/2 ML VIAL IVP PRN ×3 (04:38→12:20)
[2018-06-03] MEDS ORDERED: Naloxone 0.4 MG/ML INJ IVP PRN ×2 (04:38→12:20)
--- NOTE | 2018-06-03 04:48 | Internal Med History&Physical ---
Date of Encounter: 06/03/18 Time of Encounter: 04:30 Internal Medicine - H&P: HPI Chief complaint: right obstructing distal ureteral stone Admitted From: Emergency Dept Plans for Post Hospital Care: Home History of present illness: Ms. Bhatti is a 72 year old female Patient presented to the ER with right sided lower abdominal pain and right flank pain that started on 06/01/18. Pain has increased from when it started, she tried some hydrocodone that night but it did not help. She states that she also has vomited a few times as well. She denies diarrhea, constipation, blood in her urine, chest pain and dysuria. She came to the ER for further evaluation. In the ER Abdominal CT showed mild to moderate right-sided hydronephrosis secondary to a stone in the distal ureter. CBC and BMP were unremarkable. She received IV fluids, pain medicine and was admitted to the hospital floor for further management. Upon my assessment, patient is resting in the hospital bed. She is in mild distress. She denies recent history of kidney stones but has had kidney stones many years ago. She passed the stone without incident. Past Med Surg Social Fam HX - Past Medical History Medical history: arthritis, cancer, cardiomyopathy, GERD, GI bleed, hyperlipidemia, hypertension, kidney stones, liver disease, osteoporosis, renal disease, thyroid disease, valvular heart disease, other Additional medical history: anal canal cancer Psychiatric history: no psych history - Past Surgical History Surgical History: , cholecystectomy, BRAULIO/BSO, other - Social History Smoking Status: Never smoker Smokeless Tobacco Status: No Alcohol use: none Drug use: none - Family History Father Living Status: Mother Living Status: Hx Family Cardiac Disorders: Yes (HTN) Hx Family Respiratory Disorders: Yes (copd) Internal Medicine - H&P: Meds Amlodipine [Amlodipine Besylate] 10 mg PO DAILY 08/31/15 [History] Aspirin Enteric Coated [Aspirin EC] 81 mg PO DAILY 08/31/15 [History] Gabapentin [Neurontin] 100 mg PO HS 08/31/15 [History] Lisinopril [Zestril] 40 mg PO HS 08/31/15 [History] Calcium Carbonate [Calcium] 500 mg PO BID 05/03/16 [History] Ergocalciferol (VITAMIN D2) [Vitamin D] 800 unit PO DAILY 05/03/16 [History] raNITIdine HCl [Zantac] 150 mg PO HS 05/03/16 [History] Ferrous Sulfate 325 mg PO BIDWM #60 tablet 06/12/16 [Rx] Levothyroxine [Synthroid] 25 mcg PO QAM 06/23/16 [History] Oxybutynin Chloride [Ditropan Xl] 10 mg PO HS 06/23/16 [History] Raloxifene [Evista] 60 mg PO DAILY #30 tablet 11/14/16 [Rx] Bisoprolol/HCTZ 10/6.25 [Ziac 106.25] 1 tab PO DAILY 11/18/16 [History] Cetirizine HCl [All Day Allergy] 10 mg PO DAILY PRN 01/11/17 [History] Docusate [Colace] 100 mg PO BID PRN #60 capsule 01/13/17 [Rx] Ondansetron HCl [Zofran] 4 mg PO TID PRN 10/14/17 [History] Atorvastatin [Lipitor] 40 mg PO HS 02/23/18 [History] Pantoprazole Sodium [Protonix] 40 mg PO DAILY 02/23/18 [History] Bisoprolol Fumarate 04/21/18 [History] Gabapentin 04/21/18 [History] Hydrocortisone 2.5% CREAM [Cortaid] 1 appl TP BID 7 Days #1 tube 04/21/18 [Rx] Levothyroxine 04/21/18 [History] cephALEXin [Cephalexin] 500 mg PO BID #20 tablet 04/21/18 [Rx] 3 Allergy/AdvReac Type Severity Reaction Status Date / Time latex Allergy Hives Verified 04/21/18 13:53 All Systems PM: A 10-system review of systems was performed and is negative for pertinent findings except as documented above in the HPI. - Constitutional Vitals: Temp Pulse Resp BP Pulse Ox 98.1 F 82 15 180/80 98 06/03/18 01:27 06/03/18 01:27 06/03/18 01:27 06/03/18 01:27 06/03/18 01:27 General appearance: Present: cooperative, mild distress, A&O X 3, pleasant, answers questions appropriately Exam: As above - Head Head exam: Present: normal inspection - Eye Eye exam: Present: EOMI, normal appearance - Respiratory Respiratory exam: Present: CTAB. Absent: chest wall tenderness, decreased breath sounds, rales, rhonchi, wheezes - Cardiovascular Cardiovascular exam: Present: RRR, systolic murmur. Absent: diastolic murmur Additional comments: 2+ systolic murmur - GI/Abdominal GI/Abdominal exam: Present: normal bowel sounds, soft, tenderness Additional comments: right lower quadrant and right flank tenderness with palpation. - Extremities Exam Extremities exam: Present: warm, radial pulses palpable and symmetrical. Absent : calf tenderness, pedal edema, tenderness - Back Exam Back exam: Absent: CVA tenderness (L), CVA tenderness (R) - Neurological Exam Neurological exam: Present: no focal deficits, strengths equal and symetr throughout. Absent: motor sensory deficit, facial droop, speech deficit - Skin Skin exam: Present: dry, normal color, warm Internal Med - H&P Results - Labs CBC & Chem 7: 06/02/18 22:30 06/02/18 22:30 - Assessment and plan (1) Ureteral stone with hydronephrosis Current Visit: Yes Status: Acute Assessment and plan: 7mm obstructing ureteral stone on right side as seen on abdominal CT. Urology consult in the AM NPO tonight Oxycodone PRN for pain IV fluids Zofran for nausea as needed. (2) Nausea & vomiting Current Visit: No Status: Resolved Assessment and plan: Secondary to abdominal pain. Zofran when necessary Qualifiers: Vomiting type: unspecified Vomiting Intractability: non-intractable Qualified Code(s): R11.2 - Nausea with vomiting, unspecified (3) Acute kidney injury Current Visit: No Status: Resolved Assessment and plan: Slightly decreased GFR. Fluids given in the emergency room. Also likely related to ureteral stone. Recheck labs in the morning. (4) Abdominal pain Current Visit: No Status: Resolved Assessment and plan: Secondary to above Qualifiers: Abdominal location: lower abdomen, unspecified Qualified Code(s): R10.30 - Lower abdominal pain, unspecified (5) DVT prophylaxis Current Visit: No Status: Acute Assessment and plan: SCDs - Time Spent With Patient Total time spent is greater than 50% in coordination of care (as documented) at patient's floor/unit and/or counseling patient: Greater than 35 minutes
[2018-06-03 07:24] LABS: BUN/Creatinine Ratio 16 (6-26); Blood Urea Nitrogen 17 mg/dL (8-23); Carbon Dioxide 19 mEq/L (23-29); Chloride 102 mEq/L (98-107); Glucose 164 mg/dL (70-105); Osmolality,Calculated 279 (280-300); Potassium 4.3 mEq/L (3.5-5.1); Sodium 132 mEq/L (136-145); eGFR For Non-African Americans 52 (> 60)
--- NOTE | 2018-06-03 07:52 | Urology - Consult Note ---
Date of Encounter: 06/03/18 Time of Encounter: 07:50 - Assessment and Plan (1) Ureteral stone with hydronephrosis Current Visit: Yes Status: Acute Assessment and plan: We will plan on taking the patient to the operative room today for right ureteroscopic stone extraction with laser. Urology CN:HPI Consult date: 06/03/18 Requesting physician: Bashir Boggs History of present illness: Kenzie is a 72-year-old female with a history of presentation to the emergency Department yesterday secondary to severe right-sided flank pain. Patient was found of the distal 5 mm ureteral stone on the right side. Patient states her pain is currently controlled with pain medicine. She has had some nausea. No vomiting. Patient denies any fevers. Patient does have a history of kidney stones and has followed with Dr. Ramos in the past. Past Med Surg Social Fam HX - Past Medical History Medical history: arthritis, cancer, cardiomyopathy, GERD, GI bleed, hyperlipidemia, hypertension, kidney stones, liver disease, osteoporosis, renal disease, thyroid disease, valvular heart disease, other Additional medical history: anal canal cancer Psychiatric history: no psych history - Past Surgical History Surgical History: , cholecystectomy, BRAULIO/BSO, other - Social History Smoking Status: Never smoker Smokeless Tobacco Status: No Alcohol use: none Drug use: none - Family History Father Living Status: Mother Living Status: Hx Family Cardiac Disorders: Yes (HTN) Hx Family Respiratory Disorders: Yes (copd) Medications and Allergies Amlodipine [Amlodipine Besylate] 10 mg PO DAILY 08/31/15 [History] Aspirin Enteric Coated [Aspirin EC] 81 mg PO DAILY 08/31/15 [History] Gabapentin [Neurontin] 100 mg PO HS 08/31/15 [History] Lisinopril [Zestril] 40 mg PO HS 08/31/15 [History] Calcium Carbonate [Calcium] 500 mg PO BID 05/03/16 [History] Ergocalciferol (VITAMIN D2) [Vitamin D] 800 unit PO DAILY 05/03/16 [History] raNITIdine HCl [Zantac] 150 mg PO HS 05/03/16 [History] Ferrous Sulfate 325 mg PO BIDWM #60 tablet 06/12/16 [Rx] Levothyroxine [Synthroid] 25 mcg PO QAM 10/10/16 [History] Oxybutynin Chloride [Ditropan Xl] 10 mg PO HS 06/23/16 [History] Raloxifene [Evista] 60 mg PO DAILY #30 tablet 11/14/16 [Rx] Bisoprolol/HCTZ 106.25 [Ziac 106.25] 1 tab PO DAILY 11/18/16 [History] Cetirizine HCl [All Day Allergy] 10 mg PO DAILY PRN 01/11/17 [History] Docusate [Colace] 100 mg PO BID PRN #60 capsule 01/13/17 [Rx] Ondansetron HCl [Zofran] 4 mg PO TID PRN 10/14/17 [History] Atorvastatin [Lipitor] 40 mg PO HS 02/23/18 [History] Pantoprazole Sodium [Protonix] 40 mg PO DAILY 02/23/18 [History] Bisoprolol Fumarate 04/21/18 [History] Gabapentin 04/21/18 [History] Hydrocortisone 2.5% CREAM [Cortaid] 1 appl TP BID 7 Days #1 tube 04/21/18 [Rx] Levothyroxine 04/21/18 [History] cephALEXin [Cephalexin] 500 mg PO BID #20 tablet 04/21/18 [Rx] 3 Allergy/AdvReac Type Severity Reaction Status Date / Time latex Allergy Hives Verified 04/21/18 13:53 Review of Systems - Constitutional no chills, no fever(s) - EENT Nose, mouth and throat: no dizziness - Cardiovascular no chest pain - Respiratory no cough - Gastrointestinal abdominal pain Exam Initial Vital Signs Temp Pulse Resp BP Pulse Ox 98.0 F 75 16 189/67 98 06/02/18 21:09 06/02/18 21:09 06/02/18 21:09 06/02/18 21:09 06/02/18 21:09 General/Neuological: alert and oriented x 3 Eyes: normal pupils, non-icteric Neck: no lymphadenopathy noted, supple to touch ABD: soft, nontender, no masses palpated, good bowel sounds Back: no pain on percussion bilaterally Skin: no rashes noted Musculoskeletal: normal gait, FROMx4 Urology Results - Labs 06/02/18 22:30 06/03/18 04:41 Abnormal lab results WBC 11.5 K/mcL (4.3-11.1) H 06/02/18 22:30 Hgb 10.6 g/dL (11.5-15.4) L 06/02/18 22:30 Hct 32.2 % (35.3-44.9) L 06/02/18 22:30 MCH 27.7 pg (28.0-33.3) L 06/02/18 22:30 Neutrophils # 9.1 K/mcL (1.6-8.9) H 06/02/18 22:30 Sodium 132 mEq/L (136-145) L 06/03/18 04:41 Carbon Dioxide 19 mEq/L (23-29) L 06/03/18 04:41 Est GFR (Non-Af Amer) 52 (> 60) L 06/03/18 04:41 Glucose 164 mg/dL (70-105) H 06/03/18 04:41 Calculated Osmolality 279 (280-300) L 06/03/18 04:41 Lactic Acid 2.7 mmol/L (0.5-2.2) H 06/03/18 00:16 Total Bilirubin 0.2 mg/dL (0.3-1.0) L 06/02/18 22:30 AST 60 Units/L (13-39) H 06/02/18 22:30 Urine Blood Moderate (Negative) H 06/02/18 22:39 Ur Leukocyte Esterase Small (Negative) H 06/02/18 22:39 Urine Microscopic RBC 5-15 per hpf (0-3) H 06/02/18 22:39 Urine Microscopic WBC 5-15 per hpf (0-3) H 06/02/18 22:39 Ur Squamous Epith Cells Many per lpf (None-Few) H 06/02/18 22:39 Ur Culture Indicated? NO. (NO) A 06/02/18 22:39 Diabetes panel 06/03/18 Range/Units 04:41 Sodium 132 L (136-145) mEq/L Potassium 4.3 (3.5-5.1) mEq/L Chloride 102 (98-107) mEq/L Carbon Dioxide 19 L (23-29) mEq/L BUN 17 (8-23) mg/dL Creatinine 1.04 (0.60-1.20) mg/dL Glucose 164 H (70-105) mg/dL Pituitary panel 06/03/18 Range/Units 04:41 Sodium 132 L (136-145) mEq/L Potassium 4.3 (3.5-5.1) mEq/L Chloride 102 (98-107) mEq/L Carbon Dioxide 19 L (23-29) mEq/L BUN 17 (8-23) mg/dL Creatinine 1.04 (0.60-1.20) mg/dL Glucose 164 H (70-105) mg/dL Adrenal panel 06/03/18 Range/Units 04:41 Sodium 132 L (136-145) mEq/L Potassium 4.3 (3.5-5.1) mEq/L Chloride 102 (98-107) mEq/L Carbon Dioxide 19 L (23-29) mEq/L BUN 17 (8-23) mg/dL Creatinine 1.04 (0.60-1.20) mg/dL Glucose 164 H (70-105) mg/dL All other labs normal. Consult Discharge Plan - Plan Referrals: Victor Hugo Fernandez DO [Primary Care Provider] -
[2018-06-03 08:15] LABS: Hematocrit 30.6 % (35.3-44.9); Hemoglobin 9.8 g/dL (11.5-15.4); Mean Corpuscular Hemoglobin 26.4 pg (28.0-33.3); Mean Corpuscular Volume 82.5 fL (83.0-100.0); Mean Platelet Volume 11.1 fL (9.4-12.4); Platelet Count 268 K/mcL (140-400); Red Blood Count 3.71 M/mcL (3.82-4.97); Red Cell Distribution Width 12.8 % (11.5-14.5)
[2018-06-03 08:24] LABS: Calcium 8.4 mg/dL (8.6-10.3)
--- NOTE | 2018-06-03 10:29 | Anesthesia Evaluation PreOp ---
Date of Encounter: 06/03/18 Time of Encounter: 10:30 - Past History Planned Operation: Rt USE Cardiac History: CHF (2016 ECHO EF 60%, moderate diastolic dysfunction), HTN, Hyperlipidemia Pulmonary History: Denies Any Significant HX VIBRATING SCREEN OPERATOR History: Denies Any Significant HX Other Medical History: Hepatic, GERD Anesthesia History: No Prior Anesthetic Complications : No Test: Negative Alcohol Use: none Drug use: none Medications and Allergies Amlodipine [Amlodipine Besylate] 10 mg PO DAILY 08/31/15 [History] Aspirin Enteric Coated [Aspirin EC] 81 mg PO DAILY 08/31/15 [History] Gabapentin [Neurontin] 100 mg PO HS 08/31/15 [History] Lisinopril [Zestril] 40 mg PO HS 08/31/15 [History] Calcium Carbonate [Calcium] 500 mg PO BID 05/03/16 [History] Ergocalciferol (VITAMIN D2) [Vitamin D] 800 unit PO DAILY 05/03/16 [History] raNITIdine HCl [Zantac] 150 mg PO HS 05/03/16 [History] Ferrous Sulfate 325 mg PO BIDWM #60 tablet 06/12/16 [Rx] Levothyroxine [Synthroid] 25 mcg PO QAM 06/23/16 [History] Oxybutynin Chloride [Ditropan Xl] 10 mg PO HS 06/23/16 [History] Raloxifene [Evista] 60 mg PO DAILY #30 tablet 11/14/16 [Rx] Bisoprolol/HCTZ 10/6.25 [Ziac 10/6.25] 1 tab PO DAILY 11/18/16 [History] Cetirizine HCl [All Day Allergy] 10 mg PO DAILY PRN 01/11/17 [History] Docusate [Colace] 100 mg PO BID PRN #60 capsule 01/13/17 [Rx] Ondansetron HCl [Zofran] 4 mg PO TID PRN 10/14/17 [History] Atorvastatin [Lipitor] 40 mg PO HS 02/23/18 [History] Pantoprazole Sodium [Protonix] 40 mg PO DAILY 02/23/18 [History] Bisoprolol Fumarate 04/21/18 [History] Gabapentin 04/21/18 [History] Hydrocortisone 2.5% CREAM [Cortaid] 1 appl TP BID 7 Days #1 tube 04/21/18 [Rx] Levothyroxine 04/21/18 [History] cephALEXin [Cephalexin] 500 mg PO BID #20 tablet 04/21/18 [Rx] 3 Allergy/AdvReac Type Severity Reaction Status Date / Time latex Allergy Hives Verified 04/21/18 13:53 - Meds/Allergy Pre-op Review Medications Reviewed: Yes Allergies Reviewed: Yes Beta Blockers on Current Med List: No Anesthesia Results - Labs 06/03/18 04:38 06/03/18 04:41 - Imaging EKG: report reviewed (SR) Additional studies: EF 60% mod diastolic dysfunction Anesthesia Exam O2 Sat Height 1.55 m Height 1.55 m Weight 86.8 kg Weight 83.915 kg O2 Sat by Pulse Oximetry 98 O2 Sat by Pulse Oximetry 97 O2 Sat by Pulse Oximetry 99 O2 Sat by Pulse Oximetry 98 O2 Sat by Pulse Oximetry 98 Vital Signs Temp Pulse Resp BP Pulse Ox 98.0 F 75 16 189/67 98 06/02/18 21:06/02/18 21:06/02/18 21:06/02/18 21:09 06/02/18 21:09 Height: 5'1 Weight: 191 lbs NPO (# of Hours): MN Pain Scale: 0 - HEENT Pupil (Motor): Pupils equal, EOMI Mallampati: II Teeth: Edentulous Oral Opening: Greater than 3 - VIBRATING SCREEN OPERATOR LOC: Oriented VIBRATING SCREEN OPERATOR Motor: Normal RUE, Normal LUE, Normal RLE, Normal LLE, Normal Face VIBRATING SCREEN OPERATOR Sensory: Normal: RUE, LUE, RLE, LLE, Face - Cardiac Rhythm: Regular Murmur: None JVD: No Carotid Bruit: No - Pulmonary Breath Sounds: bilateral Clear Respiratory Effort: Symmetrical Anesthesia Assess/Plan ASA Score: 3 (HTN Hx Cardiomyopathy (current EF nl)) Modified Tivoli Scale for Level of Consciousness: Cooperative, oriented, and tranquil Anesthetic Plan: General Monitoring Plan: Standard Monitors Recovery Plan: PACU (Discussed GA, agrees to proceed)
--- NOTE | 2018-06-03 10:33 | Event Note ---
Date of Encounter: 06/03/18 Time of Encounter: 10:32 Seen and evaluated at bedside Pain free Awaiting procedure by Urine does not look infected Exam unremarkable Plan is to continue current management
[2018-06-03] MEDS ORDERED: Dexamethasone 4 MG/ML VIAL ONE (10:59)
[2018-06-03] MEDS ORDERED: *HR* FentaNYL (PF) 100 MCG/2 ML VIAL ONE (10:59)
[2018-06-03] MEDS ORDERED: Ondansetron 4 MG/2 ML VIAL ONE (10:59)
[2018-06-03] MEDS ORDERED: Lidocaine -MPF 2% 2 ML VIAL ONE (10:59)
[2018-06-03] MEDS ORDERED: *HR* Propofol 200 MG/20 ML VIAL IVP ONE (11:00)
[2018-06-03] MEDS ORDERED: *HR* Midazolam HCl 2 MG/2 ML VIAL ONE (11:00)
[2018-06-03] MEDS ORDERED: *HR* Morphine 2 MG/ML SYRINGE IVP PRN (11:29)
[2018-06-03] MEDS ORDERED: *HR* OxyCODONE Immed Rel 5 MG TABLET PO PRN ×2 (11:29→12:20)
--- NOTE | 2018-06-03 11:37 | Operative Note ---
Date of procedure: 06/03/18 Pre-op diagnosis: right distal ureteral stone Post-op diagnosis: same Procedure: Right ureteroscopic basket retrieval of stone, right 4.8 x 26 cm ureteral stent placement Anesthesia: GETA Surgeon: Luke Gomez Was there an assistant passenger locomotive engineer present: No Estimated blood loss (cc): 0 Specimen: right ureteral stone Condition: stable Disposition: PACU Procedure in Detail: Patient was prepped and draped in normal sterile fashion. Timeout procedure performed. I then inserted the semirigid ureteroscope into the patient's bladder. I was able to cannulate the right ureteral orifice. I encountered the distal 3 x 5 mm stone. I was able to grab this using a basket device. The stone was then removed in its entirety. I then placed the scope back into the patient's bladder and into the right ureter. I surveyed the entire ureter with no further stone seen. A sensor wire was then placed into the right kidney. I then placed a 4.8 x 26 cm stent with good curl seen in the right kidney and in the bladder. The bladder was drained and procedure was ended. A string was left for easy removal in 2-3 days.
--- NOTE | 2018-06-03 11:37 | Event Note ---
Date of Encounter: 06/03/18 Time of Encounter: 11:37 Patient okay to be discharged home from urology standpoint. She will need follow-up in 3-4 weeks. Okay for patient to remove stent in 2-3 days.
[2018-06-03] MEDS ORDERED: *HR* Metoprolol 5 MG/5 ML VIAL IVP ONE (11:39)
--- NOTE | 2018-06-03 14:18 | Anesthesia Evaluation Post Op ---
Date of Encounter: 06/03/18 Time of Encounter: 12:09 - Vital Signs Vital Signs: Vital Signs Temp Pulse Resp BP Pulse Ox 06/03/18 12:14 99.9 F H 64 14 157/69 94 06/03/18 12:04 71 14 153/66 94 06/03/18 11:54 68 16 146/67 96 06/03/18 11:44 98.8 F 68 16 141/62 96 06/03/18 01:27 98.1 F 82 15 180/80 98 06/03/18 01:12 16 172/68 06/03/18 00:01 80 16 182/65 97 06/02/18 22:59 80 18 170/89 99 06/02/18 22:09 73 18 168/89 98 06/02/18 21:09 98.0 F 75 16 189/67 98 Intake and Output Patient Weight 06/03/18 23:59 Weight 86.8 kg - Lungs Lungs: Clear Ascult./Percussion - Airway Airway: Non-obstructed - Cardiovascular Baseline Rhythm - Mental Status Mental Status: Alert & Oriented, Answers Appropriately - Pain Pain Scale: 0 Pain Scale used: Numeric (1 - 10) - Hydration Hydration: Ice chips, Has not voided - Discharge PostOp Status: Transfer Patient to floor Anes Supervising Prov Stmt: PT seen/evaluated, VSS and has met criteria for discharge to floor. - MD Miky
[2018-06-04] MEDS ORDERED: Loratadine 10 MG TABLET PO PRN (06:04)
[2018-06-04 06:28] LABS: Basophils # 0.1 K/mcL (0.0-0.2); Basophils % 0.4 %; Eosinophils % 0.1 %; Hematocrit 33.7 % (35.3-44.9); Hemoglobin 10.7 g/dL (11.5-15.4); Immature Granulocytes % 1.2 % (0-4); Lymphocytes % 16.7 %; Mean Corpuscular HGB Conc 31.8 g/dL (31.6-35.5); Mean Corpuscular Hemoglobin 26.7 pg (28.0-33.3); Mean Platelet Volume 10.5 fL (9.4-12.4); Monocytes # 0.6 K/mcL (0.0-1.3); Monocytes % 5.2 %; Neutrophils # 8.9 K/mcL (1.6-8.9); Platelet Count 315 K/mcL (140-400); Red Blood Count 4.01 M/mcL (3.82-4.97); Red Cell Distribution Width 12.9 % (11.5-14.5); Segmented Neutrophils % 76.4 %
[2018-06-04] MEDS ORDERED: Levothyroxine 25 MCG TABLET PO SCH (06:30)
[2018-06-04 06:56] LABS: BUN/Creatinine Ratio 21 (6-26); Blood Urea Nitrogen 21 mg/dL (8-23); Calcium 9.3 mg/dL (8.6-10.3); Carbon Dioxide 21 mEq/L (23-29); Chloride 105 mEq/L (98-107); Glucose 200 mg/dL (70-105); Osmolality,Calculated 287 (280-300); Potassium 4.4 mEq/L (3.5-5.1); Sodium 134 mEq/L (136-145); eGFR For Non-African Americans 55 (> 60)
[2018-06-04] MEDS ORDERED: Bisoprolol/HCTZ 10/6.25 TABLET PO SCH (09:00)
[2018-06-04] MEDS ORDERED: Aspirin Enteric Coated 81 MG Tablet PO SCH (09:00)
[2018-06-04] MEDS ORDERED: amLODIPine 5 MG TABLET PO SCH (09:00)
[2018-06-04] MEDS ORDERED: Dextrose Gel 15 GM/37.5 ML TUBE PO PRN ×2 (11:41)
[2018-06-04] MEDS ORDERED: D5% in Water 1,000 ML IVC PRN (11:41)
[2018-06-04] MEDS ORDERED: *HR* Dextrose 50 % in Water (Syg) 50 ML SYRINGE IVP PRN (11:41)
[2018-06-04] MEDS ORDERED: Lisinopril 20 MG TABLET PO SCH (11:45)
[2018-06-04 14:00] VITALS: BP 137/55
--- NOTE | 2018-06-04 14:07 | Discharge Summary ---
- NOTES TO OUTPATIENT PROVIDER Notes to Outpatient Provider: Follow-up with urology for stent removal in 2-3 weeks. Follow-up with primary care physician. No change in home medications Orders not resulted at time of discharge: Pending orders 06/03/18 11:45 Calculi (stone) Analysis Routine Date of Encounter: 06/04/18 Time of Encounter: 14:05 - Discharge Diagnosis (1) ARF (acute renal failure) Priority: Primary Status: Resolved Assessment and Plan: Post renal Jayesh due to obstructive uropathy. Resolved with stoe removal , stent placement and IVF hydration Qualifiers: Acute renal failure type: unspecified Qualified Code(s): N17.9 - Acute kidney failure, unspecified (2) DVT prophylaxis Priority: Primary Status: Acute Assessment and Plan: SQ heparin (3) Essential hypertension Priority: Primary Status: Chronic Assessment and Plan: continue home meds on discharge Follow up with PCP (4) GERD (gastroesophageal reflux disease) Priority: Secondary Status: Chronic Assessment and Plan: Continue home medications upon discharge Qualifiers: Esophagitis presence: without esophagitis Qualified Code(s): K21.9 - Gastro -esophageal reflux disease without esophagitis (5) Ureteral stone with hydronephrosis Priority: Primary Status: Resolved Assessment and Plan: Resolved. Follow-up with primary care and urology. Encouraged liberal fluid hydration. Hospital course: Ms. Bhatti is a 72 year old female admitted to observation for acute kidney injury secondary to obstructive uropathy. With associated right hydronephrosis. Urology was consulted and stone extraction was done with stents placement. The patient was seen and evaluated this morning, she is pain-free, urine is clearing up. Blood pressure was initially uncontrolled because medications with hold for surgery. However, blood pressure now controlled with resumption of home medication. Patient is asymptomatic. She is clinically and hemodynamically stable to be discharged home with appropriate follow-up with primary care physician and urology for stent removal. Plan of care discussed with the patient verbalized understanding. Discharge discussed with: patient, nurse - Time Spent with Patient Total time spent providing and/or coordinating discharge services: Less than 30 minutes - Discharge Medications Home Medications: Amlodipine [Amlodipine Besylate] 10 mg PO DAILY 08/31/15 [History] Aspirin Enteric Coated [Aspirin EC] 81 mg PO DAILY 08/31/15 [History] Gabapentin [Neurontin] 100 mg PO HS 08/31/15 [History] Lisinopril [Zestril] 40 mg PO HS 08/31/15 [History] Calcium Carbonate [Calcium] 500 mg PO BID 05/03/16 [History] Ergocalciferol (VITAMIN D2) [Vitamin D] 800 unit PO DAILY 05/03/16 [History] raNITIdine HCl [Zantac] 150 mg PO HS 05/03/16 [History] Ferrous Sulfate 325 mg PO BIDWM #60 tablet 06/12/16 [Rx] Levothyroxine [Synthroid] 25 mcg PO QAM 06/23/16 [History] Oxybutynin Chloride [Ditropan Xl] 10 mg PO HS 06/23/16 [History] Raloxifene [Evista] 60 mg PO DAILY #30 tablet 11/14/16 [Rx] Bisoprolol/HCTZ 106.25 [Ziac 6.25] 1 tab PO DAILY 11/18/16 [History] Cetirizine HCl [All Day Allergy] 10 mg PO DAILY PRN 01/11/17 [History] Docusate [Colace] 100 mg PO BID PRN #60 capsule 01/13/17 [Rx] Ondansetron HCl [Zofran] 4 mg PO TID PRN 10/14/17 [History] Atorvastatin [Lipitor] 40 mg PO HS 02/23/18 [History] Pantoprazole Sodium [Protonix] 40 mg PO DAILY 02/23/18 [History] Bisoprolol Fumarate 04/21/18 [History] Gabapentin 04/21/18 [History] Hydrocortisone 2.5% CREAM [Cortaid] 1 appl TP BID 7 Days #1 tube 04/21/18 [Rx] Levothyroxine 04/21/18 [History] cephALEXin [Cephalexin] 500 mg PO BID #20 tablet 04/21/18 [Rx] Allergies/Adverse Reactions: 3 Allergy/AdvReac Type Severity Reaction Status Date / Time latex Allergy Hives Verified 04/21/18 13:53 Date of admission: 06/03/18 00:20 Primary care physician: Victor Hugo Fernandez Consults: 06/03/18 01:41 Consult to Pastoral Services [CONS] Routine Comment: Discharging clinician: Rafal Cabrales Anticipated date of discharge: 06/04/18 - Constitutional Vitals: Temp Pulse Resp BP Pulse Ox 97.6 F 81 14 137/55 98 06/04/18 13:50 06/04/18 13:50 06/04/18 13:50 06/04/18 13:50 06/04/18 10:27 General appearance: Present: cooperative, A&O X 3, pleasant, no acute distress, answers questions appropriately Exam: See below - Head Head exam: Present: atraumatic, normocephalic - Eye Eye exam: Present: PERRL, conjuntiva pink, sclera anicteric Pupils: Present: PERRL - Neck Neck exam general surgery: Present: supple, trachea midline. Absent: lymphadenopathy - Respiratory Respiratory exam: Present: CTAB. Absent: accessory muscle use, rales, rhonchi, wheezes - Cardiovascular Cardiovascular exam: Present: RRR, +S1, +S2. Absent: diastolic murmur, gallop, rubs, systolic murmur - GI/Abdominal GI/Abdominal exam: Present: normal bowel sounds, soft, no peritoneal signs. Absent: distended, tenderness - Extremities Exam Extremities exam: Present: warm, radial pulses palpable and symmetrical. Absent : calf tenderness, cyanotic, pedal edema - Neurological Exam Neurological exam: Present: alert, CN II-XII intact, oriented X3, no focal deficits. Absent: pronater drift, facial droop, speech deficit - Skin Skin exam: Present: dry, intact - Patient Status Disposition: Home, Self-Care Condition: Good Functional capacity at discharge: independent ambulation Overall status at discharge: patient is back to baseline - Discharge Instructions Follow Up With: Victor Hugo Fernandez DO [Primary Care Provider] - - Diet and Activity Activity: resume usual activities as tolerated Diet: low fat, low cholesterol, low salt diet
[2018-06-04] MEDS ORDERED: Insulin LISPRO 300 UNITS/3 ML VIAL SQ SCH ×2 (16:30→21:00)
[2018-06-04] MEDS ORDERED: Famotidine 20 MG TABLET PO SCH (21:00)
[2018-06-04] MEDS ORDERED: Gabapentin 100 MG CAPSULE PO SCH (21:00)
[2018-06-08 13:03] LABS: Calculi Mass 9 mg
== END 2018-06-04 16:01 | disposition home or self-care (01) ==
LOC: 3ANU 20:52 → EMEROOARM 20:52 → SUATTDRO 06-03 00:20 → 3ANU 06-03 01:26
PROVIDERS: ADMIT Family Medicine; ATTEND Internal Medicine

== ENCOUNTER 2018-07-05 19:52 | Observation (INO) ==
[2018-07-05] MEDS ORDERED: Aspirin 81 MG TAB.CHEW PO ONE (20:08)
[2018-07-05] MEDS ORDERED: Nitroglycerin 0.4 MG TAB.SUBL SL ONE (20:08)
--- NOTE | 2018-07-05 20:11 | Emergency Department Note ---
Disposition Clinical Impression: Chest pain on exertion Disposition: Admitted As Inpatient Condition: Fair Referrals: Victor Hugo Fernandez DO [Primary Care Provider] - Forms: ED Satisfaction Letter Time of Disposition: 22:18 Chest Pain HPI - General Stated Complaint: cp/back pain Time Seen by Provider: 07/05/18 20:06 Vital Signs Reviewed: Yes Nursing Notes Reviewed: Yes - History of Present Illness HPI Narrative: 72-year-old female presents from home for evaluation of chest pain. Onset 36 hours prior to arrival. Described as a mid chest dullness which radiates directly posteriorly to her back. She has no associated symptoms in her arm, jaw. No dyspnea or diaphoresis. No nausea or vomiting. Patient notes she is a history of hypertension. She is also been under undue stress as her is recently in the [place] [facility]. Her symptoms were preceded by vomiting and loose stools 3 days ago. PMH: Hypertension ROS: Positive: As above Negative: Fever, chills, nausea, vomiting, palpitations, dyspnea, diaphoresis, upper extremity numbness/tingling/weakness, abdominal pain, vertigo, headache, confusion - Related Data Home Medications Medication Instructions Recorded Confirmed Amlodipine [Amlodipine Besylate] 10 mg PO DAILY 08/31/15 07/05/18 Aspirin Enteric Coated [Aspirin EC] 81 mg PO DAILY 08/31/15 07/05/18 Gabapentin [Neurontin] 100 mg PO HS 08/31/15 07/05/18 Lisinopril [Zestril] 40 mg PO HS 08/31/15 07/05/18 Calcium Carbonate [Calcium] 500 mg PO BID 05/03/16 07/05/18 Ergocalciferol (VITAMIN D2) 800 unit PO DAILY 05/03/16 07/05/18 [Vitamin D] raNITIdine HCl [Zantac] 150 mg PO HS 05/03/16 07/05/18 Levothyroxine [Synthroid] 25 mcg PO QAM 06/23/16 07/05/18 Oxybutynin Chloride [Ditropan Xl] 10 mg PO HS 06/23/16 07/05/18 Bisoprolol/HCTZ 06/19.25 [Ziac 1 tab PO DAILY 11/18/16 07/05/18 10.25] Cetirizine HCl [All Day Allergy] 10 mg PO DAILY PRN 01/11/17 07/05/18 Atorvastatin [Lipitor] 40 mg PO HS 02/23/18 07/05/18 Pantoprazole Sodium [Protonix] 40 mg PO DAILY 02/23/18 07/05/18 Previous Rx's Medication Instructions Recorded Ferrous Sulfate 325 mg PO BIDWM #60 tablet 06/12/16 Raloxifene [Evista] 60 mg PO DAILY #30 tablet 11/14/16 Docusate [Colace] 100 mg PO BID PRN #60 capsule 01/13/17 Allergies Allergy/AdvReac Type Severity Reaction Status Date / Time latex Allergy Hives Verified 04/21/18 13:53 All systems ED: reviewed and negative except as stated. Review of Systems: As Per HPI Chest Pain PMH - Past Medical History Medical history: Reports: arthritis, cancer, cardiomyopathy, GERD, GI bleed, hyperlipidemia, hypertension, kidney stones, liver disease, osteoporosis, renal disease, thyroid disease, valvular heart disease, other Surgical history: Reports: , cholecystectomy, BRAULIO/BSO, other Psychiatric history: Reports: no psych history CARE ASST history: Reports: other - Social History Smoking Status: Never smoker Alcohol use: Reports: none Drug use: Reports: none Physical Exam Vital Signs Reviewed General: Patient is alert, oriented, and in no acute distress. Head: atraumatic, normocephalic Eye: normal appearance, PERRL, EOMI, no scleral icterus, no conjunctival injection ENT: mucous membranes moist, normal external ear exam Neck: normal inspection, trachea midline, full ROM Chest: normal inspection, symmetric chest rise Respiratory: Good respiratory effort. Bilateral breath sounds are clear without wheezing, crackles, or rhonchi. Cardiovascular: Regular rate and rhythm. No clicks, rubs, gallops, or murmors. Normal heart sounds. Bilateral radial posterior tibial pulses 2/4 equal. No pedal edema. Abdomen: Bowel sounds present normoactive x-4 quadrants. Abdomen is soft, nondistended, and nontender. No guarding or rebound. Musculoskeletal: Spontaneously moving all extremities. Skin: warm, dry, intact. Neuro: Alert and oriented x4. Sensation light touch intact. Psych: Patient's affect is appropriate for situation. Course Course Narrative: Patient's chest pain completely resolved with sublingual nitroglycerin. She got up to walk to the bathroom. Her chest pain returns. After returning from the bathroom she got a bed, her chest pain resolved. Her chest pain completely resolved after single; nitroglycerin. Serum hematology is unremarkable. Serum chemistries unremarkable; normal troponin. Urinalysis not concerning for UTI; squamous epithelial cell contamination. Discussed the above with the admitting hospitalist. He is agreeable to admission and request d-dimer be drawn. If d-dimer is positive, he will follow- up with additional testing on the floor. EKG dated 07/05 at 20:06 interpreted as sinus rhythm with rate of 62. OH 125, QRS 71, QTC 431. Normal axis. Nonspecific ST-T changes. Compared to previous EKG dated 01/10/2017 showing no acute ischemic changes or comparison. Vital Signs Temperature 98.4 F 07/05/18 20:00 Pulse Rate 62 07/05/18 20:00 Respiratory Rate 18 07/05/18 20:00 Blood Pressure 178/84 07/05/18 20:00 O2 Sat by Pulse Oximetry 100 07/05/18 20:00 Temperature 98.4 F 07/05/18 20:00 Pulse Rate 58 07/05/18 21:12 Respiratory Rate 18 07/05/18 21:12 Blood Pressure 165/52 07/05/18 21:12 O2 Sat by Pulse Oximetry 100 07/05/18 21:12 Oxygen Delivery Oxygen Delivery Room Air Chest Pain - Lab Data Result diagrams: 07/05/18 20:16 07/05/18 20:16 Lab Results 07/05/18 07/05/18 07/05/18 Range/Units 20:16 20:16 20:16 WBC 7.7 (4.3-11.1) K/mcL RBC 3.84 (3.82-4.97) M/mcL Hgb 9.6 L (11.5-15.4) g/dL Hct 31.0 L (35.3-44.9) % MCV 80.7 L (83.0-100.0) fL MCH 25.0 L (28.0-33.3) pg MCHC 31.0 L (31.6-35.5) g/dL RDW 13.2 (11.5-14.5) % Plt Count 313 (140-400) K/mcL MPV 10.6 (9.4-12.4) fL Immature Gran % 1.6 (0-4) % Seg Neutrophils % 61.8 % Lymphocytes % 25.2 % Monocytes % 7.8 % Eosinophils % 2.3 % Basophils % 1.3 % Neutrophils # 4.8 (1.6-8.9) K/mcL Lymphocytes # 2.0 (0.6-4.6) K/mcL Monocytes # 0.6 (0.0-1.3) K/mcL Eosinophils # 0.2 (0.0-0.6) K/mcL Basophils # 0.1 (0.0-0.2) K/mcL PT 11.9 (9.4-12.1) Seconds INR 1.1 APTT 34.8 (26.0-36.0) Seconds Sodium (136-145) mEq/L Potassium (3.5-5.1) mEq/L Chloride (98-107) mEq/L Carbon Dioxide (23-29) mEq/L BUN (8-23) mg/dL Creatinine (0.60-1.20) mg/dL Est GFR ( Amer) (> 60) Est GFR (Non-Af Amer) (> 60) BUN/Creatinine Ratio (6-26) Glucose (70-105) mg/dL Calculated Osmolality (280-300) Calcium (8.6-10.3) mg/dL Troponin I (< 0.04) ng/mL B-Natriuretic Peptide 59 (Less than 100) pg/mL Urine Color (Yellow) Urine Clarity (Clear) Urine pH (5.0-8.0) pH Units Ur Specific [place] (1.010-1.025) Urine Protein (Neg-Trace) mg/dL Urine Glucose (UA) (Normal) mg/dL Urine Ketones (Negative) mg/dL Urine Blood (Negative) Urine Nitrite (Negative) Urine Bilirubin (Negative) Urine Urobilinogen (Normal) mg/dL Ur Leukocyte Esterase (Negative) Urine Microscopic RBC (0-3) per hpf Urine Microscopic WBC (0-3) per hpf Ur Squamous Epith Cells (None-Few) per lpf Urine Bacteria (None-Few) per hpf Hyaline Casts (None-Few) per lpf Ur Culture Indicated? (NO) 07/05/18 07/05/18 Range/Units 20:16 20:48 WBC (4.3-11.1) K/mcL RBC (3.82-4.97) M/mcL Hgb (11.5-15.4) g/dL Hct (35.3-44.9) % MCV (83.0-100.0) fL MCH (28.0-33.3) pg MCHC (31.6-35.5) g/dL RDW (11.5-14.5) % Plt Count (140-400) K/mcL MPV (9.4-12.4) fL Immature Gran % (0-4) % Seg Neutrophils % % Lymphocytes % % Monocytes % % Eosinophils % % Basophils % % Neutrophils # (1.6-8.9) K/mcL Lymphocytes # (0.6-4.6) K/mcL Monocytes # (0.0-1.3) K/mcL Eosinophils # (0.0-0.6) K/mcL Basophils # (0.0-0.2) K/mcL PT (9.4-12.1) Seconds INR APTT (26.0-36.0) Seconds Sodium 135 L (136-145) mEq/L Potassium 4.4 (3.5-5.1) mEq/L Chloride 102 (98-107) mEq/L Carbon Dioxide 25 (23-29) mEq/L BUN 19 (8-23) mg/dL Creatinine 0.90 (0.60-1.20) mg/dL Est GFR ( Amer) > 60 (> 60) Est GFR (Non-Af Amer) > 60 (> 60) BUN/Creatinine Ratio 21 (6-26) Glucose 146 H (70-105) mg/dL Calculated Osmolality 285 (280-300) Calcium 9.3 (8.6-10.3) mg/dL Troponin I < 0.03 (< 0.04) ng/mL B-Natriuretic Peptide (Less than 100) pg/mL Urine Color Yellow (Yellow) Urine Clarity Clear (Clear) Urine pH 6.0 (5.0-8.0) pH Units Ur Specific [place] 1.020 (1.010-1.025) Urine Protein Negative (Neg-Trace) mg/dL Urine Glucose (UA) Normal (Normal) mg/dL Urine Ketones Negative (Negative) mg/dL Urine Blood Negative (Negative) Urine Nitrite Negative (Negative) Urine Bilirubin Negative (Negative) Urine Urobilinogen Normal (Normal) mg/dL Ur Leukocyte Esterase Large H (Negative) Urine Microscopic RBC 0-3 (0-3) per hpf Urine Microscopic WBC 15-30 H (0-3) per hpf Ur Squamous Epith Cells Many H (None-Few) per lpf Urine Bacteria None Seen (None-Few) per hpf Hyaline Casts None Seen (None-Few) per lpf Ur Culture Indicated? NO. A (NO) Heart Score - Score History: Moderately Suspicious EKG: Non Specific repolarisation Disturbance Age: Greater than 65 Risk Factors: 1-2 risk factors Troponin: Less than normal limit HEART Score Total: 5 Attestation Statement - Attestation Attestation: I, Noah Mayen DO, examined this patient [id number] and my medical decision-making was reviewed with Dr. Tomy Grimm, Resident Physician. I agree with the documented findings, disposition and treatment plan as described except to the extent set forth below. Please see my progress notes for details.
[2018-07-05 20:34] LABS: Basophils # 0.1 K/mcL (0.0-0.2); Basophils % 1.3 %; Eosinophils # 0.2 K/mcL (0.0-0.6); Eosinophils % 2.3 %; Hemoglobin 9.6 g/dL (11.5-15.4); Immature Granulocytes % 1.6 % (0-4); Lymphocytes % 25.2 %; Mean Corpuscular Volume 80.7 fL (83.0-100.0); Mean Platelet Volume 10.6 fL (9.4-12.4); Monocytes # 0.6 K/mcL (0.0-1.3); Monocytes % 7.8 %; Neutrophils # 4.8 K/mcL (1.6-8.9); Platelet Count 313 K/mcL (140-400); Red Blood Count 3.84 M/mcL (3.82-4.97); Red Cell Distribution Width 13.2 % (11.5-14.5); Segmented Neutrophils % 61.8 %
[2018-07-05 20:46] LABS: INR 1.1; Prothrombin Time 11.9 Seconds (9.4-12.1)
[2018-07-05 20:48] LABS: Activated Partial Thrombo Time 34.8 Seconds (26.0-36.0)
[2018-07-05 20:55] LABS: BUN/Creatinine Ratio 21 (6-26); Blood Urea Nitrogen 19 mg/dL (8-23); Calcium 9.3 mg/dL (8.6-10.3); Carbon Dioxide 25 mEq/L (23-29); Chloride 102 mEq/L (98-107); Glucose 146 mg/dL (70-105); Osmolality,Calculated 285 (280-300); Potassium 4.4 mEq/L (3.5-5.1); Sodium 135 mEq/L (136-145); eGFR For Non-African Americans > 60 (> 60)
[2018-07-05 20:56] LABS: Troponin I < 0.03 ng/mL (< 0.04)
[2018-07-05 21:01] LABS: Bilirubin,Urine Negative (Negative); Blood,Urine Negative (Negative); Clarity,Urine Clear (Clear); Color,Urine Yellow (Yellow); Glucose,Urine (UA) Normal (Normal); Ketones,Urine Negative (Negative); Leukocyte Esterase,Urine Large (Negative); Nitrite,Urine Negative (Negative); Protein,Urine Negative (Neg-Trace); Urobilinogen,Urine Normal (Normal)
[2018-07-05 21:03] LABS: Bacteria,Urine None Seen per hpf (None-Few); Hyaline Casts,Urine None Seen per lpf (None-Few); RBC,Urine 0-3 per hpf (0-3); Squamous Epithelial Cell,Urine Many per lpf (None-Few); WBC,Urine 15-30 per hpf (0-3)
--- NOTE | 2018-07-05 21:08 | Emergency Department Note ---
Disposition Clinical Impression: Chest pain, Anemia, Angina pectoris, unspecified Disposition: Admitted As Inpatient Condition: Good Referrals: Victor Hugo Fernandez DO [Primary Care Provider] - Forms: ED Satisfaction Letter Time of Disposition: 22:21 General Adult HPI - General Chief complaint: ED Chest Pain Stated complaint: cp/back pain Time Seen by Provider: 07/05/18 20:06 Source: family Limitations: no limitations - History of Present Illness Pain Scale: 6 - Related Data Home Medications Medication Instructions Recorded Confirmed Amlodipine [Amlodipine Besylate] 10 mg PO DAILY 08/31/15 07/05/18 Aspirin Enteric Coated [Aspirin EC] 81 mg PO DAILY 08/31/15 07/05/18 Gabapentin [Neurontin] 100 mg PO HS 08/31/15 07/05/18 Lisinopril [Zestril] 40 mg PO HS 08/31/15 07/05/18 Calcium Carbonate [Calcium] 500 mg PO BID 05/03/16 07/05/18 Ergocalciferol (VITAMIN D2) 800 unit PO DAILY 05/03/16 07/05/18 [Vitamin D] raNITIdine HCl [Zantac] 150 mg PO HS 05/03/16 07/05/18 Levothyroxine [Synthroid] 25 mcg PO QAM 06/23/16 07/05/18 Oxybutynin Chloride [Ditropan Xl] 10 mg PO HS 06/23/16 07/05/18 Bisoprolol/HCTZ 106.25 [Ziac 1 tab PO DAILY 11/18/16 07/05/18 106.25] Cetirizine HCl [All Day Allergy] 10 mg PO DAILY PRN 01/11/17 07/05/18 Atorvastatin [Lipitor] 40 mg PO HS 02/23/18 07/05/18 Pantoprazole Sodium [Protonix] 40 mg PO DAILY 02/23/18 07/05/18 Previous Rx's Medication Instructions Recorded Ferrous Sulfate 325 mg PO BIDWM #60 tablet 06/12/16 Raloxifene [Evista] 60 mg PO DAILY #30 tablet 11/14/16 Docusate [Colace] 100 mg PO BID PRN #60 capsule 01/13/17 Allergies Allergy/AdvReac Type Severity Reaction Status Date / Time latex Allergy Hives Verified 04/21/18 13:53 Past Medical History - Past Medical History Medical history: Reports: arthritis, cancer, cardiomyopathy, GERD, GI bleed, hyperlipidemia, hypertension, kidney stones, liver disease, osteoporosis, renal disease, thyroid disease, valvular heart disease, other Surgical history: Reports: , cholecystectomy, BRAULIO/BSO, other Psychiatric history: Reports: no psych history [employer] history: Reports: other - Social History Smoking Status: Never smoker Smokeless Tobacco Status: No Alcohol use: Reports: none Drug use: Reports: none Physical Exam - General Limitations: no limitations General appearance: alert, in no apparent distress Course Vital Signs Temperature 98.4 F 07/05/18 20:00 Pulse Rate 62 07/05/18 20:00 Respiratory Rate 18 07/05/18 20:00 Blood Pressure 178/84 07/05/18 20:00 O2 Sat by Pulse Oximetry 100 07/05/18 20:00 Temperature 98.4 F 07/05/18 20:00 Pulse Rate 58 07/05/18 21:12 Respiratory Rate 18 07/05/18 21:12 Blood Pressure 165/52 07/05/18 21:12 O2 Sat by Pulse Oximetry 100 07/05/18 21:12 Oxygen Delivery Oxygen Delivery Room Air Medical Decision Making - Lab Data Result diagrams: 07/05/18 20:16 07/05/18 20:16 Lab Results 07/05/18 07/05/18 07/05/18 Range/Units 20:16 20:16 20:16 WBC 7.7 (4.3-11.1) K/mcL RBC 3.84 (3.82-4.97) M/mcL Hgb 9.6 L (11.5-15.4) g/dL Hct 31.0 L (35.3-44.9) % MCV 80.7 L (83.0-100.0) fL MCH 25.0 L (28.0-33.3) pg MCHC 31.0 L (31.6-35.5) g/dL RDW 13.2 (11.5-14.5) % Plt Count 313 (140-400) K/mcL MPV 10.6 (9.4-12.4) fL Immature Gran % 1.6 (0-4) % Seg Neutrophils % 61.8 % Lymphocytes % 25.2 % Monocytes % 7.8 % Eosinophils % 2.3 % Basophils % 1.3 % Neutrophils # 4.8 (1.6-8.9) K/mcL Lymphocytes # 2.0 (0.6-4.6) K/mcL Monocytes # 0.6 (0.0-1.3) K/mcL Eosinophils # 0.2 (0.0-0.6) K/mcL Basophils # 0.1 (0.0-0.2) K/mcL PT 11.9 (9.4-12.1) Seconds INR 1.1 APTT 34.8 (26.0-36.0) Seconds Sodium (136-145) mEq/L Potassium (3.5-5.1) mEq/L Chloride (98-107) mEq/L Carbon Dioxide (23-29) mEq/L BUN (8-23) mg/dL Creatinine (0.60-1.20) mg/dL Est GFR ( Amer) (> 60) Est GFR (Non-Af Amer) (> 60) BUN/Creatinine Ratio (6-26) Glucose (70-105) mg/dL Calculated Osmolality (280-300) Calcium (8.6-10.3) mg/dL Troponin I (< 0.04) ng/mL B-Natriuretic Peptide 59 (Less than 100) pg/mL Urine Color (Yellow) Urine Clarity (Clear) Urine pH (5.0-8.0) pH Units Ur Specific [place] (1.010-1.025) Urine Protein (Neg-Trace) mg/dL Urine Glucose (UA) (Normal) mg/dL Urine Ketones (Negative) mg/dL Urine Blood (Negative) Urine Nitrite (Negative) Urine Bilirubin (Negative) Urine Urobilinogen (Normal) mg/dL Ur Leukocyte Esterase (Negative) Urine Microscopic RBC (0-3) per hpf Urine Microscopic WBC (0-3) per hpf Ur Squamous Epith Cells (None-Few) per lpf Urine Bacteria (None-Few) per hpf Hyaline Casts (None-Few) per lpf Ur Culture Indicated? (NO) 07/05/18 07/05/18 Range/Units 20:16 20:48 WBC (4.3-11.1) K/mcL RBC (3.82-4.97) M/mcL Hgb (11.5-15.4) g/dL Hct (35.3-44.9) % MCV (83.0-100.0) fL MCH (28.0-33.3) pg MCHC (31.6-35.5) g/dL RDW (11.5-14.5) % Plt Count (140-400) K/mcL MPV (9.4-12.4) fL Immature Gran % (0-4) % Seg Neutrophils % % Lymphocytes % % Monocytes % % Eosinophils % % Basophils % % Neutrophils # (1.6-8.9) K/mcL Lymphocytes # (0.6-4.6) K/mcL Monocytes # (0.0-1.3) K/mcL Eosinophils # (0.0-0.6) K/mcL Basophils # (0.0-0.2) K/mcL PT (9.4-12.1) Seconds INR APTT (26.0-36.0) Seconds Sodium 135 L (136-145) mEq/L Potassium 4.4 (3.5-5.1) mEq/L Chloride 102 (98-107) mEq/L Carbon Dioxide 25 (23-29) mEq/L BUN 19 (8-23) mg/dL Creatinine 0.90 (0.60-1.20) mg/dL Est GFR ( Amer) > 60 (> 60) Est GFR (Non-Af Amer) > 60 (> 60) BUN/Creatinine Ratio 21 (6-26) Glucose 146 H (70-105) mg/dL Calculated Osmolality 285 (280-300) Calcium 9.3 (8.6-10.3) mg/dL Troponin I < 0.03 (< 0.04) ng/mL B-Natriuretic Peptide (Less than 100) pg/mL Urine Color Yellow (Yellow) Urine Clarity Clear (Clear) Urine pH 6.0 (5.0-8.0) pH Units Ur Specific [place] 1.020 (1.010-1.025) Urine Protein Negative (Neg-Trace) mg/dL Urine Glucose (UA) Normal (Normal) mg/dL Urine Ketones Negative (Negative) mg/dL Urine Blood Negative (Negative) Urine Nitrite Negative (Negative) Urine Bilirubin Negative (Negative) Urine Urobilinogen Normal (Normal) mg/dL Ur Leukocyte Esterase Large H (Negative) Urine Microscopic RBC 0-3 (0-3) per hpf Urine Microscopic WBC 15-30 H (0-3) per hpf Ur Squamous Epith Cells Many H (None-Few) per lpf Urine Bacteria None Seen (None-Few) per hpf Hyaline Casts None Seen (None-Few) per lpf Ur Culture Indicated? NO. A (NO) Attestation Statement - Attestation Attestation: I, Noah Mayen DO, examined this patient [id number] and my medical decision-making was reviewed with Dr. Tomy Grimm, Resident Physician. I agree with the documented findings, disposition and treatment plan as described except to the extent set forth below. Please see my progress notes for details. 72-year-old female presents emergency room with 36 hours of chest pain. Patient says the pain is worse with exertion. Denies any history of coronary artery disease or stones. Denies any history of smoking program blood clots or trauma. Currently she is denying chest pain shortness breath headache vision changes nausea vomiting or diarrhea prior resting in the bed. She does exert herself she does have reemergence of the symptoms. Vital signs are stable on presentation. Patient is alert she is oriented speaking in full sentences. She is otherwise in no distress. Lungs are clear heart is regular abdomen is soft nontender nondistended no guarding no rigidity and no peritoneal symptoms. Patient will have cardiac evaluation completed with CBC chemistry troponin and BNP along with urinalysis chest x-ray and EKG. aspirin will be given as needed. Patient is otherwise clinically stable. Because of the exertional anginal- like presentation the patient will require admission after the workup has been completed in emergency room. Patient otherwise clinically stable and a symptomatic during our initial evaluation. Patient informed of the plan she is comfortable with the disposition course. See detailed documentation the physical exam, medical intervention, medical decision-making and disposition in the resident physician's note. No critical care provider the patient's treatment course at this time. 2200 Patient has negative laboratory workup at this time. Chest x-ray stable. Hospitalist Dr. Astorga reviewed the case and had undergone recommendation for a d-dimer to be added on at this point because of a history of possible estrogen medication. Patient otherwise is asymptomatic at this point as long she is lying still. Patient's exercise she does have some chest discomfort and symptoms. Patient will be admitted for intermittent exertional angina. We will continue to monitor here in the emergency room to the admission process is completed. If the d-dimer is elevated imaging modality will be ordered on the floor. Patient is otherwise clinical stable.
[2018-07-05] MEDS: 0.9 % Sodium Chloride 1,000 ML IVC SCH (21:14)
--- NOTE | 2018-07-05 22:50 | Internal Med History&Physical ---
<Joann Dove N - Last Filed: 07/06/18 02:20> Date of Encounter: 07/05/18 Time of Encounter: 22:50 Internal Medicine - H&P: HPI Chief complaint: Chest pain Admitted From: Emergency Dept History of present illness: Ms. Bhatti is a 72 year old female with an extensive medical history, including cardiomyopathy, aortic valve sclerosis, GERD, GI bleed, hypertension, osteoporosis, anal cancer, and thyroid disease. She presented to the ED this evening complaining of diffuse chest pain x 36 hours. She states that she began having symptoms yesterday morning after she finished eating. She rates her pain as 7-8/10 initially. She denies any associated diaphoresis, nausea, vomiting, or shortness of breath. She denies any palliative or provocative factors. She describes this pain as intermittent, and stays that it is inconsistently prompted by exertion. The pain does not radiate. She had one prior episode of similar symptoms in the past, which was alleviated by taking OTC gas medication. Patient has had recent stressors, as her was recently admitted to a assisted for physical rehabilitation after an extended hospital stay. She states that she had a crying spell after returning home from a visit with her , which occurred around the same time as her initial chest pain. At that time, she says that she thought that her discomfort may have been caused by her tearful incident. She reports that the pain was present last night when she went to bed. She did receive a dose of nitroglycerin while in the ED; however, it is unclear if this alleviated any of her discomfort. EKG performed in the ED did not show any acute ischemic changes. Troponin and d-dimer were negative. Patient was admitted for further workup and management. Patient was seen and evaluated while in the emergency department. She denies any chest pain or discomfort at this time, and appears to be resting comfortably. She denies any shortness of breath. She answers questions appropriately and is cooperative with exam, without reproduction of symptoms. Past Med Surg Social Fam HX - Past Medical History Medical history: arthritis, cancer, cardiomyopathy, GERD, GI bleed, hyperlipidemia, hypertension, kidney stones, liver disease, osteoporosis, renal disease, thyroid disease, valvular heart disease, other Additional medical history: anal canal cancer Psychiatric history: no psych history - Past Surgical History Surgical History: , cholecystectomy, BRAULIO/BSO, other - Social History Smoking Status: Never smoker Smokeless Tobacco Status: No Alcohol use: none Drug use: none - Family History Father Living Status: Mother Living Status: Hx Family Cardiac Disorders: Yes (HTN) Hx Family Respiratory Disorders: Yes (copd) Internal Medicine - H&P: Meds Amlodipine [Amlodipine Besylate] 10 mg PO DAILY 08/31/15 [History] Aspirin Enteric Coated [Aspirin EC] 81 mg PO DAILY 08/31/15 [History] Gabapentin [Neurontin] 100 mg PO HS 08/31/15 [History] Lisinopril [Zestril] 40 mg PO HS 08/31/15 [History] Calcium Carbonate [Calcium] 500 mg PO BID 05/03/16 [History] Ergocalciferol (VITAMIN D2) [Vitamin D] 800 unit PO DAILY 05/03/16 [History] raNITIdine HCl [Zantac] 150 mg PO HS 05/03/16 [History] Ferrous Sulfate 325 mg PO BIDWM #60 tablet 06/12/16 [Rx] Levothyroxine [Synthroid] 25 mcg PO QAM 06/23/16 [History] Oxybutynin Chloride [Ditropan Xl] 10 mg PO HS 06/23/16 [History] Raloxifene [Evista] 60 mg PO DAILY #30 tablet 11/14/16 [Rx] Bisoprolol/HCTZ 106.25 [Ziac 106.25] 1 tab PO DAILY 11/18/16 [History] Cetirizine HCl [All Day Allergy] 10 mg PO DAILY PRN 01/11/17 [History] Docusate [Colace] 100 mg PO BID PRN #60 capsule 01/13/17 [Rx] Atorvastatin [Lipitor] 40 mg PO HS 02/23/18 [History] Pantoprazole Sodium [Protonix] 40 mg PO DAILY 02/23/18 [History] Allergy/AdvReac Type Severity Reaction Status Date / Time latex Allergy Hives Verified 04/21/18 13:53 All Systems PM: A 10-system review of systems was performed and is negative for pertinent findings except as documented above in the HPI. - Constitutional Vitals: Temp Pulse Resp BP Pulse Ox 98.4 F 58 18 165/52 100 07/05/18 20:00 07/05/18 21:12 07/05/18 21:12 07/05/18 21:12 07/05/18 21:12 Exam: GENERAL: Elderly female lying in bed comfortably. She does not appear to be in acute distress. She answers questions appropriately and is cooperative with exam. HEENT: Atraumatic and normocephalic. Mucus membranes moist. CARDIOVASCULAR: 3/6 systolic murmur loudest over aortic valve. Regular rate and rhythm. S1 and S2 present. No gallops or rubs. RESPIRATORY: CTA bilaterally. Chest rises and falls symmetrically with respiration. No accessory muscle use. GASTROINTESTINAL: Hypoactive bowel sounds present x 4 quadrants. Abdomen is distended, but soft and nontender. No rebound or guarding present. EXTREMITIES: No clubbing, cyanosis, or edema present. Internal Med - H&P Results - Labs CBC & Chem 7: 07/05/18 20:16 07/05/18 20:16 Labs: Short CBC 07/05/18 Range/Units 20:16 WBC 7.7 (4.3-11.1) K/mcL Hgb 9.6 L (11.5-15.4) g/dL Hct 31.0 L (35.3-44.9) % Plt Count 313 (140-400) K/mcL Neutrophils # 4.8 (1.6-8.9) K/mcL BMP 07/05/18 20:16 Sodium 135 L Potassium 4.4 Chloride 102 Carbon Dioxide 25 BUN 19 Creatinine 0.90 Glucose 146 H Calcium 9.3 Cardiac Enzymes 07/05/18 Range/Units 20:16 Troponin I < 0.03 (< 0.04) ng/mL Urine 07/05/18 Range/Units 20:48 Urine Color Yellow (Yellow) Urine Clarity Clear (Clear) Urine pH 6.0 (5.0-8.0) pH Units Ur Specific [place] 1.020 (1.010-1.025) Urine Protein Negative (Neg-Trace) mg/dL Urine Glucose (UA) Normal (Normal) mg/dL - Impressions ITS Impressions Chest X-Ray 07/05/18 20:09 IMPRESSION: Cardiomegaly and mild pulmonary edema are identified. D/ / Uday Gudino / Uday Gudino Interpreting Provider: Uday Gudino - Assessment and plan (1) Chest pain Current Visit: Yes Status: Acute Assessment and plan: Unclear etiology - possibilities include ACS vs. PE vs. emotional upset. Patient reports nonspecific chest pain that is intermittent in nature, with no palliative or provocative factors. She denies any associated diaphoresis, nausea/vomiting, or diaphoresis. She reports acute increase in stressors, as her was recently placed in a assisted for rehab after a prolonged hospital stay. She states that initial onset was after a crying spell, as she was upset that she was not feeling well and her was not home with her. She reports that the pain was present last night when she fell asleep. After discussion with the patient, it is unclear if her discomfort was alleviated by administration of nitroglycerin. She denies any pain at the time of exam, even with change in position. EKG performed in the ED demonstrated sinus rhythm and nonspecific ST-T changes; however, there were acute changes when compared to previous studies and troponin was negative in the ED. CXR demonstrated cardiomegaly and mild pulmonary edema. Her last echocardiogram was performed on 02/03/2018, which demonstrated LVEF 60-65%. Other significant findings on that study were as follows: moderate left ventricular diastolic dysfunction, mild to moderately dilated left atrium, mild aortic sclerosis via Doppler with mean gradient 12mmHg, and mild pulmonary hypertension with estimated RVSP of 38mmHg. Patient is currently on Evista for osteoporosis, which has been associated with blood clots; however, d-dimer was negative at 452. Patient repeatedly voices concern for her , and states that she did not come to the ED yesterday when this started as she did not want to be hospitalized, as that would hinder her ability to see her and take him to his doctor's appointments. She reports multiple crying spells over the last few days and states that the pain might be exacerbated by those. - Will order repeat troponins Q6H - Echocardiogram - Telemetry monitoring and vital signs Q4H Qualifiers: Chest pain type: other chest pain Qualified Code(s): R07.89 - Other chest pain; R07.8 - Other chest pain (2) Anemia Current Visit: Yes Status: Chronic Assessment and plan: Patient had hemoglobin of 9.6 per laboratory studies performed in the ED, with decreased MCV. Review of prior laboratory panels demonstrate hemoglobin WNL prior to May of this year, with values of 9.5-10.5 since that time. Patient is currently on supplemental iron therapy. Due to patient history of GI bleed, concern for presence of chronic bleed, particularly with history of anal cancer as well. As she is currently on oral iron supplementation, stool guiac would not be of diagnostic value. Patient had a colonoscopy in November 2016, which demonstrated scattered mild inflammation in the sigmound colon secondary to colitis. Patient would be appropriate for repeat colonoscopy to rule out additional pathology; however, suspect that this can be performed on an outpatient basis. - Continue oral iron supplementation - Repeat CBC in AM with iron studies - Bloodbank type and screen - no immediate plan for transfusion at this time - Hold GI/surgery consult pending acute decrease in hemoglobin/hematocrit - Recommend outpatient followup for repeat colonoscopy unless indication for emergent evaluation arises Qualifiers: Anemia type: iron deficiency Iron deficiency anemia type: unspecified iron deficiency Qualified Code(s): D50.9 - Iron deficiency anemia, unspecified (3) GERD (gastroesophageal reflux disease) Current Visit: No Status: Chronic Assessment and plan: Patient reports some intermittent symptoms associated with consumption of particular foods. She denies any GI upset or reflux symptoms at this time. - Continue pantoprazole 40mg QD - Continue ranitidine 150mg PO HS Qualifiers: Esophagitis presence: without esophagitis Qualified Code(s): K21.9 - Gastro-esophageal reflux disease without esophagitis (4) Essential hypertension Current Visit: No Status: Chronic Assessment and plan: Continue home medication regimen: - Amlodipine 10mg QD - Lisinopril 40mg HS - Bisoprolol/HCTZ 10/6.25mg QD (5) DVT prophylaxis Current Visit: No Status: Acute Assessment and plan: - SCDs (6) Hypothyroid Current Visit: Yes Status: Acute Assessment and plan: - Continue home medication of synthroid 25mcg QAM Qualifiers: Hypothyroidism type: unspecified Qualified Code(s): E03.9 - Hypothyroidism, unspecified - Time Spent With Patient Total time spent is greater than 50% in coordination of care (as documented) at patient's floor/unit and/or counseling patient: <Nii Astorga - Last Filed: 07/06/18 05:22> Date of Encounter: 07/06/18 Time of Encounter: 04:15 - Constitutional Constitutional: no chills, no fever(s), no night sweats - EENT Eyes: no change in vision Ears: no ear pain, no tinnitus Nose, mouth and throat: no nasal congestion, no sore throat - Cardiovascular Cardiovascular ROS IM: chest pain (epigastric ) - Respiratory Respiratory: no cough, no hemoptysis, no chest congestion, no excessive phlegm production, no change in phlegm color - Gastrointestinal Gastrointestinal: abdominal pain (epigastric), heartburn, nausea, vomiting, no diarrhea, no hematemesis, no hematochezia, no melena - Genitourinary Genitourinary: no dysuria, no flank pain, no hematuria - Musculoskeletal Musculoskeletal ROS IM: no arthralgias, no muscle weakness, no myalgias - Integumentary Integumentary IM: no rash, no jaundice - Neurological Neurological ROS: no disequilibrium, no dizziness, no focal weakness, no frequent falls, no headache(s) - Psychiatric Psychiatric: no anxiety, no depression - Endocrine Endocrine IM: no polydipsia, no polyuria - Allergic/Immunologic Allergic/Immunologic: no wheezing, no GI upset with certain foods - Constitutional Vitals: Temp Pulse Resp BP Pulse Ox 97.7 F 64 16 149/68 95 07/06/18 04:07 07/06/18 04:07 07/06/18 04:07 07/06/18 04:07 07/06/18 04:07 General appearance: Present: cooperative, A&O X 3, pleasant, no acute distress, answers questions appropriately - Eye Eye exam: Present: EOMI, PERRL. Absent: scleral icterus Pupils: Present: normal accommodation - ENT ENT exam: Present: mucous membranes dry, normal exam, normal oropharynx - Neck Neck exam general surgery: Present: full ROM, supple. Absent: tenderness, nuchal rigidity, thyromegaly - Respiratory Respiratory exam: Present: CTAB. Absent: chest wall tenderness, rales, rhonchi, wheezes - Cardiovascular Cardiovascular exam: Present: RRR, +S1, +S2. Absent: diastolic murmur, systolic murmur - GI/Abdominal GI/Abdominal exam: Present: normal bowel sounds, tenderness (epigastrium). Absent: guarding, hepatomegaly, rebound, splenomegaly - Extremities Exam Extremities exam: Present: full ROM, warm, radial pulses palpable and symmetrical. Absent: calf tenderness, pedal edema, tenderness - Back Exam Back exam: Absent: CVA tenderness (L), CVA tenderness (R) - Neurological Exam Neurological exam: Present: alert, CN II-XII intact, oriented X3, no focal deficits, strengths equal and symetr throughout - Psychiatric Psychiatric exam: Present: normal affect, normal mood - Skin Skin exam: Present: dry, warm. Absent: rash Internal Med - H&P Results - Labs CBC & Chem 7: 07/06/18 03:08 07/06/18 03:08 Labs: Short CBC 07/05/18 07/06/18 Range/Units 20:16 03:08 WBC 7.7 6.4 (4.3-11.1) K/mcL Hgb 9.6 L 8.6 L (11.5-15.4) g/dL Hct 31.0 L 27.9 L (35.3-44.9) % Plt Count 313 284 (140-400) K/mcL Neutrophils # 4.8 3.7 (1.6-8.9) K/mcL BMP 07/05/18 07/06/18 20:16 03:08 Sodium 135 L 137 Potassium 4.4 4.0 Chloride 102 106 Carbon Dioxide 25 24 BUN 19 17 Creatinine 0.90 0.78 Glucose 146 H 133 H Calcium 9.3 8.4 L Cardiac Enzymes 07/05/18 07/06/18 Range/Units 20:16 03:08 Troponin I < 0.03 < 0.03 (< 0.04) ng/mL Urine 07/05/18 Range/Units 20:48 Urine Color Yellow (Yellow) Urine Clarity Clear (Clear) Urine pH 6.0 (5.0-8.0) pH Units Ur Specific [place] 1.020 (1.010-1.025) Urine Protein Negative (Neg-Trace) mg/dL Urine Glucose (UA) Normal (Normal) mg/dL - EKG Data -: EKG Interpreted by Myself - EKG Data EKG comments: 07/06/18 05:11 NSR; no acute ST-T changes - Impressions ITS Impressions Chest X-Ray 07/05/18 20:09 IMPRESSION: Cardiomegaly and mild pulmonary edema are identified. D/ / Uday Gudino / Uday Gudino Interpreting Provider: Uday Gudino - Diagnostic Studies Chest x-ray Status: image reviewed by me (cardiomegaly) - Assessment and plan (1) Anemia Current Visit: Yes Status: Chronic Qualifiers: Anemia type: iron deficiency Iron deficiency anemia type: unspecified iron deficiency Qualified Code(s): D50.9 - Iron deficiency anemia, unspecified (2) DVT prophylaxis Current Visit: No Status: Acute (3) Essential hypertension Current Visit: No Status: Chronic (4) GERD (gastroesophageal reflux disease) Current Visit: No Status: Chronic Qualifiers: Esophagitis presence: without esophagitis Qualified Code(s): K21.9 - Gastr o-esophageal reflux disease without esophagitis (5) Chest pain Current Visit: Yes Status: Acute Qualifiers: Chest pain type: other chest pain Qualified Code(s): R07.89 - Other chest pain; R07.8 - Other chest pain (6) Hypothyroid Current Visit: Yes Status: Acute Qualifiers: Hypothyroidism type: unspecified Qualified Code(s): E03.9 - Hypothyroidism, unspecified - Time Spent With Patient Total time spent is greater than 50% in coordination of care (as documented) at patient's floor/unit and/or counseling patient: - Attending Attestation I discussed the patient EKLUT[place], past medical history, review of systems, lab data, imaging findings, and exam findings with Dr. Dove. I then saw and examined patient independently. History and exam do not suggest cardiac source of pain. I agree that there is some bit of stress and anxiety likely contributing to her chest pain. However, upon further examine history, I'm concerned about epigastric nature of pain and possible chronic GI bleed. She has a history of anal cancer treated with radiation and chemotherapy. She had a colonoscopy about a year ago which showed some colitis but no other acute pathology. She has not had an EGD in quite some time. I am concerned about upper GI source of bleeding. We will trend her hemoglobin. Of note, her hemoglobin did drop to 8.6 from 9.6 on admission. Given 1 gram hemoglobin drop, I'm inclined to consult GI for further intervention as an inpatient rather than outpatient. I am going to place her on IV proton pump inhibitor as well. We will trend her troponins and EKGs. However, I suspect GI source of chest pain and I am concerned about gastric ulcer versus gastritis. Other than my comments above and noted exam findings, I agree with Dr. Dove's assessment and plan.
[2018-07-06] MEDS ORDERED: Naloxone 0.4 MG/ML INJ IVP PRN (00:33)
[2018-07-06] MEDS ORDERED: Gabapentin 100 MG CAPSULE PO SCH (02:00)
[2018-07-06] MEDS ORDERED: Lisinopril 20 MG TABLET PO SCH (02:00)
[2018-07-06 03:21] LABS: Basophils # 0.1 K/mcL (0.0-0.2); Basophils % 1.1 %; Eosinophils # 0.2 K/mcL (0.0-0.6); Eosinophils % 3.7 %; Hematocrit 27.9 % (35.3-44.9); Hemoglobin 8.6 g/dL (11.5-15.4); Immature Granulocytes % 1.1 % (0-4); Lymphocytes # 1.9 K/mcL (0.6-4.6); Lymphocytes % 29.8 %; Mean Corpuscular HGB Conc 30.8 g/dL (31.6-35.5); Mean Corpuscular Hemoglobin 24.8 pg (28.0-33.3); Mean Corpuscular Volume 80.4 fL (83.0-100.0); Mean Platelet Volume 10.4 fL (9.4-12.4); Monocytes # 0.4 K/mcL (0.0-1.3); Monocytes % 6.9 %; Neutrophils # 3.7 K/mcL (1.6-8.9); Platelet Count 284 K/mcL (140-400); Red Blood Count 3.47 M/mcL (3.82-4.97); Red Cell Distribution Width 13.2 % (11.5-14.5); Segmented Neutrophils % 57.4 %
[2018-07-06 03:38] LABS: BUN/Creatinine Ratio 22 (6-26); Blood Urea Nitrogen 17 mg/dL (8-23); Calcium 8.4 mg/dL (8.6-10.3); Carbon Dioxide 24 mEq/L (23-29); Chloride 106 mEq/L (98-107); Glucose 133 mg/dL (70-105); Osmolality,Calculated 287 (280-300); Sodium 137 mEq/L (136-145); eGFR For Non-African Americans > 60 (> 60)
[2018-07-06 03:39] LABS: % Iron Saturation 2 % (15-50); Iron 10 mcg/dL (50-170); Transferrin 308 mg/dL (203-362)
[2018-07-06] MEDS: 0.9 % Sodium Chloride 1,000 ML IVC SCH (05:15)
[2018-07-06] MEDS ORDERED: Pantoprazole 40 MG VIAL IVP SCH (06:00)
[2018-07-06] MEDS ORDERED: Levothyroxine 25 MCG TABLET PO SCH (06:30)
[2018-07-06] MEDS ORDERED: Bisoprolol/HCTZ 10/6.25 TABLET PO SCH (09:00)
[2018-07-06] MEDS ORDERED: amLODIPine 5 MG TABLET PO SCH (09:00)
--- NOTE | 2018-07-06 09:12 | Discharge Summary ---
- NOTES TO OUTPATIENT PROVIDER Notes to Outpatient Provider: Outpatient cardiology follow-up. Orders not resulted at time of discharge: Pending orders 07/06/18 02:17 EV echocardiogram Routine 07/06/18 08:34 Troponin I Q6H Date of Encounter: 07/06/18 Time of Encounter: 09:09 - Discharge Diagnosis (1) Chest pain Priority: Primary Status: Resolved Assessment and Plan: Atypical chest pain. Qualifiers: Chest pain type: other chest pain Qualified Code(s): R07.89 - Other chest pain; R07.8 - Other chest pain (2) Anemia Priority: Secondary Status: Chronic Qualifiers: Anemia type: iron deficiency Iron deficiency anemia type: unspecified iron deficiency Qualified Code(s): D50.9 - Iron deficiency anemia, unspecified (3) DVT prophylaxis Priority: Secondary Status: Acute (4) Essential hypertension Priority: Secondary Status: Chronic (5) GERD (gastroesophageal reflux disease) Priority: Secondary Status: Chronic Qualifiers: Esophagitis presence: without esophagitis Qualified Code(s): K21.9 - Gastro-esophageal reflux disease without esophagitis (6) Hypothyroid Priority: Secondary Status: Acute Qualifiers: Hypothyroidism type: unspecified Qualified Code(s): E03.9 - Hypothyroidism, unspecified Hospital course: Ms. Bhatti is a 72 year old female past medical history significant for arthritis, cancer, cardiomyopathy, GERD, GI bleed, hyperlipidemia, hypertension, kidney stones, liver disease, osteoporosis, renal disease, thyroid disease, valvular heart disease. Patient presented to the emergency room due to chest pain which she described as 7 out of 10 initially, not associated with diaphoresis nausea and vomiting and shortness of breath. Patient reports that she has been having a lot of stress in her life recently as her was recently admitted at a intermediate following a prolonged hospitalization. She reported that before she developed chest pain she had been crying for about 2 days. Patient placed under observation and ischemic workup done which was negative. Patient has has not reported chest pain seems pain in the hospital. Patient is hemodynamically stable to be discharged home. 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 - Time Spent with Patient Total time spent providing and/or coordinating discharge services: Less than 30 minutes - Discharge Medications Home Medications: Amlodipine [Amlodipine Besylate] 10 mg PO DAILY 08/31/15 [History] Aspirin Enteric Coated [Aspirin EC] 81 mg PO DAILY 08/31/15 [History] Gabapentin [Neurontin] 100 mg PO HS 08/31/15 [History] Lisinopril [Zestril] 40 mg PO HS 08/31/15 [History] Calcium Carbonate [Calcium] 500 mg PO BID 05/03/16 [History] Ergocalciferol (VITAMIN D2) [Vitamin D] 800 unit PO DAILY 05/03/16 [History] raNITIdine HCl [Zantac] 150 mg PO HS 05/03/16 [History] Ferrous Sulfate 325 mg PO BIDWM #60 tablet 06/12/16 [Rx] Levothyroxine [Synthroid] 25 mcg PO QAM 06/23/16 [History] Oxybutynin Chloride [Ditropan Xl] 10 mg PO HS 06/23/16 [History] Raloxifene [Evista] 60 mg PO DAILY #30 tablet 11/14/16 [Rx] Bisoprolol/HCTZ 106.25 [Ziac 06/19.25] 1 tab PO DAILY 11/18/16 [History] Cetirizine HCl [All Day Allergy] 10 mg PO DAILY PRN 01/11/17 [History] Docusate [Colace] 100 mg PO BID PRN #60 capsule 01/13/17 [Rx] Atorvastatin [Lipitor] 40 mg PO HS 02/23/18 [History] Pantoprazole Sodium [Protonix] 40 mg PO DAILY 02/23/18 [History] Allergies/Adverse Reactions: Allergy/AdvReac Type Severity Reaction Status Date / Time latex Allergy Hives Verified 04/21/18 13:53 Date of admission: 07/05/18 23:28 Primary care physician: Victor Hugo Fernandez - Constitutional Vitals: Temp Pulse Resp BP Pulse Ox 98.4 F 69 14 165/66 95 07/06/18 06:44 07/06/18 06:44 07/06/18 06:44 07/06/18 06:44 07/06/18 04:07 General appearance: Present: cooperative, A&O X 3, pleasant, no acute distress, answers questions appropriately Exam: General: Alert and oriented 4. In no acute distress. Skin: Normal color, no rash, no lesions. HEENT: EOM, pupils equal, round and reactive. Cardiovascular: RRR, Normal S1 & 2, no rubs, gallops. 3/6 systolic murmur. JDV about 6cms. Lungs: Clear to auscultation bilaterally, no wheezes or crackles. Abdomen: Obese, Soft, non-tender, no rigidity. NABS in all 4 quadrants Extremities: No deformity, no edema or tenderness, no joint swelling or clubbing. Neurological: Normal cognition and motor skills. Rest of the physical exam is non contributory - Patient Status Disposition: Home, Self-Care Condition: Good Functional capacity at discharge: independent ambulation Overall status at discharge: patient is back to baseline - Discharge Instructions Follow Up With: Victor Hugo Fernandez DO [Primary Care Provider] - - Diet and Activity Activity: resume usual activities as tolerated Diet: advance to your usual diet
[2018-07-06 11:23] VITALS: BP 158/73
[2018-07-06] MEDS ORDERED: Famotidine 20 MG TABLET PO SCH (21:00)
--- NOTE | 2018-07-09 16:13 | Electrocardiograph Report ---
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
== END 2018-07-06 14:19 | disposition home or self-care (01) ==
LOC: EMEROOARM 19:52 → 3BNU 19:52
PROVIDERS: ADMIT Pediatrics; ATTEND Pediatrics

== ENCOUNTER 2018-12-10 06:18 | Inpatient (IN) ==
--- NOTE | 2018-12-10 06:36 | Emergency Department Note ---
Addendum entered and electronically signed by Jacob Muro DO 12/10/18 18:22: I, Jacob Muro, examined this patient and my medical decision-making was reviewed with the [facility] GRINDER/PA/Advanced Practice Nurse/Resident Physician. I agree with the documented findings, disposition and treatment plan as described except to the extent set forth below. 73-year-old female presents emergency Department with concerns of abdominal pain, nausea, vomiting. Patient states pain began acutely around 3 AM. Pain is 9/10. Not tolerating by mouth today intake. CT of the abdomen and pelvis shows small bowel obstruction. NG tube placed and patient was admitted to the hospitalist for medical management with surgical consult. Original Note: Disposition Clinical Impression: Small bowel obstruction Nausea and vomiting Qualifiers: Vomiting type: unspecified Vomiting Intractability: non-intractable Qualified Code(s): R11.2 - Nausea with vomiting, unspecified Disposition: Admitted As Inpatient Condition: Good Referrals: Victor Hugo Fernandez DO [Primary Care Provider] - Time of Disposition: 08:03 Abdominal Pain HPI - General Stated Complaint: abdominal pain,n/v Time Seen by Provider: 12/10/18 06:21 Source: patient, family Mode of arrival: ambulatory Limitations: no limitations Nursing Notes Reviewed: Yes Vital Signs Reviewed: Yes - History of Present Illness HPI Narrative: 73 y/o female presents with nausea and vomiting which began around 0300 this AM; states she has vomited 3 times but is unsure of what it looks like. Periumbilical abdominal pain rates 9/10, sharp. Has not eaten since dinner last PM when she ate chilli. Denies diarrhea, fever, cough, chest pain, shortness of breath. States "feels constipated" - last BM was yesterday, soft. Took a laxative at 0315 this AM but believes she vomited it up. States had a radial approach LHC without intervention two days ago and was discharged from hospital yesterday. Pt Subjective Complaint: abdominal pain Onset (ago): hour(s) (3) Consistency: constant Location: periumbilical, RUQ Pain Severity: moderate Pain Scale: 9 Quality: sharp Radiation: none Migration to: no migration Worsens with: movement Context: recent surgery/procedure ([facility] 12/08) Associated symptoms: Reports: nausea, vomiting. Denies: diarrhea, fever, constipation Treatments prior to arrival: OTC medications (laxative x2) - Related Data Home Medications Medication Instructions Recorded Confirmed Aspirin Enteric Coated [Aspirin EC] 81 mg PO DAILY 08/31/15 12/07/18 Calcium Carbonate [Calcium] 500 mg PO BID 05/03/16 12/07/18 Ergocalciferol (VITAMIN D2) 800 unit PO DAILY 05/03/16 12/07/18 [Vitamin D] Levothyroxine [Synthroid] 25 mcg PO QA 06/23/16 12/07/18 Oxybutynin Chloride [Ditropan Xl] 10 mg PO HS 06/23/16 12/07/18 Atorvastatin [Lipitor] 40 mg PO HS 02/23/18 12/07/18 Pantoprazole Sodium [Protonix] 40 mg PO DAILY 02/23/18 12/07/18 Amlodipine Besylate 10 mg PO DAILY 12/07/18 12/07/18 Gabapentin [Neurontin] 100 mg PO HS 12/07/18 12/07/18 Lisinopril [Zestril] 40 mg PO HS 12/07/18 12/07/18 Thiamine HCl [Vitamin B-1] 100 mg PO DAILY 12/07/18 12/07/18 raNITIdine HCl [Zantac] 150 mg PO HS 12/07/18 12/07/18 Previous Rx's Medication Instructions Recorded Ferrous Sulfate 325 mg PO BIDWM #60 tablet 06/12/16 Raloxifene [Evista] 60 mg PO DAILY #30 tablet 11/14/16 Docusate [Colace] 100 mg PO BID PRN #60 capsule 01/13/17 Bisoprolol Fumarate [Zebeta] 10 mg PO DAILY #30 tablet 12/09/18 Hydrochlorothiazide [Microzide] 12.5 mg PO DAILY #30 capsule 12/09/18 Allergies Allergy/AdvReac Type Severity Reaction Status Date / Time latex Allergy Hives Verified 12/10/18 06:39 All systems ED: reviewed and negative except as stated. Review of Systems: As Per HPI Constitutional: Reports: as per HPI. Denies: fever, chills Cardiovascular: Reports: as per HPI. Denies: chest pain, palpitations, dyspnea on exertion Respiratory: Reports: as per HPI. Denies: dyspnea Gastrointestinal: Reports: as per HPI, abdominal pain, nausea, vomiting. Denies: diarrhea, constipation Genitourinary: Reports: as per HPI. Denies: urgency, dysuria, frequency, hematuria Neurological: Denies: headache, weakness, numbness, paresthesias, confusion, abnormal gait, vertigo Psychiatric: Denies: anxiety, depression, suicidal thoughts, homicidal thoughts, auditory hallucinations, visual hallucinations Hematological/Lymphatic: Denies: easy bleeding, easy bruising Abdominal Pain PMH - Past Medical History Medical history: Reports: arthritis, cancer, cardiomyopathy, GERD, GI bleed, hyperlipidemia, hypertension, kidney stones, liver disease, osteoporosis, renal disease, thyroid disease, valvular heart disease, other Female Surgical History: Reports: cholecystectomy, hysterectomy UTILITY HAND history: Reports: other Psychiatric history: Reports: no psych history - Social History Smoking status: Never smoker Alcohol use: Reports: none Drug use: Reports: none Physical Exam - General Limitations: no limitations General appearance: alert, in no apparent distress - Head Head exam: atraumatic, normocephalic - Eye Eye exam: Present: normal appearance - ENT ENT exam: normal exam, mucous membranes moist - Neck Neck exam: Present: normal inspection, full ROM, trachea midline - Chest Chest inspection: Present: normal inspection, symmetric chest wall rise - Respiratory Respiratory exam: Present: normal lung sounds bilaterally. Absent: respiratory distress, wheezes - Cardiovascular Cardiovascular exam: Present: regular rate, normal rhythm, systolic murmur (pt reports hx of systolic murmur; audible on exam), +S1, +S2 - Abdominal Exam Abdominal exam: Present: soft, tenderness (RUQ, periumbilical), normal bowel sounds, Mace's sign. Absent: distention, guarding, rebound, rigidity, organo megaly, psoas sign, obturator sign, Rovsing's sign, tenderness at McBurney's Point Abdominal tenderness: Present: RUQ, epigastrium - Extremities Exam Extremities exam: Present: normal inspection, full ROM, normal capillary refill - Expanded Upper Extremity Exam Forearm/Wrist exam: Present: normal inspection (heart cath 12/08; right radial approach; no redness, oozing, bleeding, warmth; healing well. no s/s infection.). Absent: swelling - Neurological Exam Neurological exam: Present: alert, oriented X3 - Psychiatric Psychiatric exam: Present: normal affect, normal mood - Skin Skin exam: Present: warm, dry, normal color. Absent: cyanosis, diaphoresis, erythema, pallor Course Course Narrative: 0800: I have spoken with Dr. Ruffin, general surgeon on-call. He agrees to consult with the patient in house but requested medical management by the hospitalist service. I have discussed this patient's case with Dr. Kunal Muro. Dr. Kunal Muro has had a [id number] evaluation with patient and agrees with this plan. 0830: I spoke with Dr. Draper, of the Hospitalist service who has accepted the patient for admission to the hospitalist care. Vital Signs Temperature 98.1 F 12/10/18 06:40 Pulse Rate 94 12/10/18 06:40 Respiratory Rate 20 12/10/18 06:40 Blood Pressure 183/75 12/10/18 06:40 O2 Sat by Pulse Oximetry 100 12/10/18 06:40 Temperature 98.1 F 12/10/18 06:43 Pulse Rate 93 12/10/18 07:52 Respiratory Rate 20 12/10/18 06:43 Blood Pressure 161/90 12/10/18 07:52 O2 Sat by Pulse Oximetry 95 12/10/18 07:52 Oxygen Delivery Oxygen Delivery Room Air Abdominal Pain - Medical Records Medical records reviewed: Yes I reviewed the patient's medical records. - Lab Data Lab results reviewed: Yes I reviewed the patient's lab results. Lab results narrative: Lab Results 12/10/18 12/10/18 Range/Units 06:59 06:59 WBC 12.4 H D (4.3-11.1) K/mcL RBC 4.80 (3.82-4.97) M/mcL Hgb 13.4 D (11.5-15.4) g/dL Hct 40.9 (35.3-44.9) % MCV 85.2 (83.0-100.0) fL MCH 27.9 L (28.0-33.3) pg MCHC 32.8 (31.6-35.5) g/dL RDW 13.4 (11.5-14.5) % Plt Count 274 (140-400) K/mcL MPV 10.2 (9.4-12.4) fL Immature Gran % 1.0 (0-4) % Seg Neutrophils % 82.5 % Lymphocytes % 10.5 % Monocytes % 4.5 % Eosinophils % 0.8 % Basophils % 0.7 % Neutrophils # 10.2 H (1.6-8.9) K/mcL Lymphocytes # 1.3 (0.6-4.6) K/mcL Monocytes # 0.6 (0.0-1.3) K/mcL Eosinophils # 0.1 (0.0-0.6) K/mcL Basophils # 0.1 (0.0-0.2) K/mcL Sodium 135 L (136-145) mEq/L Potassium 4.3 (3.5-5.1) mEq/L Chloride 101 (98-107) mEq/L Carbon Dioxide 23 (23-29) mEq/L BUN 20 (8-23) mg/dL Creatinine 0.77 (0.60-1.20) mg/dL Est GFR ( Amer) > 60 (> 60) Est GFR (Non-Af Amer) > 60 (> 60) BUN/Creatinine Ratio 26 (6-26) Glucose 227 H (70-105) mg/dL Calculated Osmolality 290 (280-300) Calcium 9.8 (8.6-10.3) mg/dL Total Bilirubin 0.4 (0.3-1.0) mg/dL Direct Bilirubin 0.1 (0.0-0.2) mg/dL Indirect Bilirubin 0.3 (0.0-1.2) mg/dL AST 26 (13-39) Units/L ALT 19 (7-52) Units/L Alkaline Phosphatase 85 (34-104) Units/L Serum Total Protein 7.3 (6.4-8.9) g/dL Albumin 4.0 (3.5-5.7) g/dL Globulin 3.3 (2.4-3.5) g/dL Albumin/Globulin Ratio 1.2 (1.1-2.2) Amylase 17 L (29-103) Units/L Lipase 9 L (11-82) Units/L Result diagrams: 12/10/18 06:59 12/10/18 06:59 Lab Results 12/10/18 12/10/18 12/10/18 Range/Units 06:59 06:59 08:02 WBC 12.4 H D (4.3-11.1) K/mcL RBC 4.80 (3.82-4.97) M/mcL Hgb 13.4 D (11.5-15.4) g/dL Hct 40.9 (35.3-44.9) % MCV 85.2 (83.0-100.0) fL MCH 27.9 L (28.0-33.3) pg MCHC 32.8 (31.6-35.5) g/dL RDW 13.4 (11.5-14.5) % Plt Count 274 (140-400) K/mcL MPV 10.2 (9.4-12.4) fL Immature Gran % 1.0 (0-4) % Seg Neutrophils % 82.5 % Lymphocytes % 10.5 % Monocytes % 4.5 % Eosinophils % 0.8 % Basophils % 0.7 % Neutrophils # 10.2 H (1.6-8.9) K/mcL Lymphocytes # 1.3 (0.6-4.6) K/mcL Monocytes # 0.6 (0.0-1.3) K/mcL Eosinophils # 0.1 (0.0-0.6) K/mcL Basophils # 0.1 (0.0-0.2) K/mcL Sodium 135 L (136-145) mEq/L Potassium 4.3 (3.5-5.1) mEq/L Chloride 101 (98-107) mEq/L Carbon Dioxide 23 (23-29) mEq/L BUN 20 (8-23) mg/dL Creatinine 0.77 (0.60-1.20) mg/dL Est GFR ( Amer) > 60 (> 60) Est GFR (Non-Af Amer) > 60 (> 60) BUN/Creatinine Ratio 26 (6-26) Glucose 227 H (70-105) mg/dL Calculated Osmolality 290 (280-300) Lactic Acid 2.5 H (0.5-2.2) mmol/L Calcium 9.8 (8.6-10.3) mg/dL Total Bilirubin 0.4 (0.3-1.0) mg/dL Direct Bilirubin 0.1 (0.0-0.2) mg/dL Indirect Bilirubin 0.3 (0.0-1.2) mg/dL AST 26 (13-39) Units/L ALT 19 (7-52) Units/L Alkaline Phosphatase 85 (34-104) Units/L Troponin I 0.03 (< 0.04) ng/mL Serum Total Protein 7.3 (6.4-8.9) g/dL Albumin 4.0 (3.5-5.7) g/dL Globulin 3.3 (2.4-3.5) g/dL Albumin/Globulin Ratio 1.2 (1.1-2.2) Amylase 17 L (29-103) Units/L Lipase 9 L (11-82) Units/L - Radiology Data Radiology results reviewed: Yes I reviewed the patient's radiology results. Chest X-Ray 12/10/18 06:38 IMPRESSION: No acute cardiopulmonary abnormality. D/ / Augustine Johnson MD / Augustine Johnson MD Interpreting Provider: Augustine Johnson MD Abdomen/Pelvis CT 12/10/18 07:04 IMPRESSION: 1. Dilated proximal small bowel loops and distal decompression consistent with small bowel obstruction. Transition point is seen in the right lower quadrant. Small bowel measures up to 3.3 cm in diameter. 2. Status post cholecystectomy and hysterectomy D/ / Augustine Johnson MD / Augustine Johnson MD Interpreting Provider: Augustine Johnson MD - EKG Data EKG attestation: Yes I reviewed and interpreted this EKG.
[2018-12-10] MEDS ORDERED: *HR* FentaNYL (PF) 100 MCG/2 ML VIAL IVP ONE (07:03)
[2018-12-10] MEDS ORDERED: 0.9 % Sodium Chloride 1,000 ML IVC ONE (07:03)
[2018-12-10] MEDS ORDERED: Ondansetron 4 MG/2 ML VIAL IVP ONE (07:03)
[2018-12-10 07:13] LABS: Basophils # 0.1 K/mcL (0.0-0.2); Basophils % 0.7 %; Eosinophils # 0.1 K/mcL (0.0-0.6); Eosinophils % 0.8 %; Hematocrit 40.9 % (35.3-44.9); Hemoglobin 13.4 g/dL (11.5-15.4); Lymphocytes # 1.3 K/mcL (0.6-4.6); Lymphocytes % 10.5 %; Mean Corpuscular HGB Conc 32.8 g/dL (31.6-35.5); Mean Corpuscular Hemoglobin 27.9 pg (28.0-33.3); Mean Corpuscular Volume 85.2 fL (83.0-100.0); Mean Platelet Volume 10.2 fL (9.4-12.4); Monocytes # 0.6 K/mcL (0.0-1.3); Monocytes % 4.5 %; Neutrophils # 10.2 K/mcL (1.6-8.9); Platelet Count 274 K/mcL (140-400); Red Cell Distribution Width 13.4 % (11.5-14.5); Segmented Neutrophils % 82.5 %
[2018-12-10 07:34] LABS: Alanine Aminotransferase 19 Units/L (7-52); Albumin/Globulin Ratio 1.2 (1.1-2.2); Alkaline Phosphatase 85 Units/L (34-104); Amylase 17 Units/L (29-103); Aspartate Amino Transferase 26 Units/L (13-39); BUN/Creatinine Ratio 26 (6-26); Bilirubin,Direct 0.1 mg/dL (0.0-0.2); Bilirubin,Indirect 0.3 mg/dL (0.0-1.2); Bilirubin,Total 0.4 mg/dL (0.3-1.0); Blood Urea Nitrogen 20 mg/dL (8-23); Calcium 9.8 mg/dL (8.6-10.3); Carbon Dioxide 23 mEq/L (23-29); Chloride 101 mEq/L (98-107); Globulin 3.3 g/dL (2.4-3.5); Glucose 227 mg/dL (70-105); Lipase 9 Units/L (11-82); Osmolality,Calculated 290 (280-300); Potassium 4.3 mEq/L (3.5-5.1); Sodium 135 mEq/L (136-145); Total Protein 7.3 g/dL (6.4-8.9); eGFR For Non-African Americans > 60 (> 60)
[2018-12-10 08:14] LABS: Troponin I 0.03 ng/mL (< 0.04)
--- NOTE | 2018-12-10 16:10 | General Surgery Consult Note ---
<Diony Major - Last Filed: 12/10/18 16:04> Date of Encounter: 12/10/18 Time of Encounter: 16:04 Assessment and Plan (1) Nausea and vomiting Current Visit: Yes Status: Acute -N/V, abdominal pain 1 day post dc from hospital after LHC -Symptoms have since resolved after having 2 BM after admission -Afebrile, mild leukocytosis at 12.4 up from 8.4 2 days ago, lactic elevated at 2.6 -CT abd/plv with concern of SBO with dilated proximal small bowel with transition in RLQ -Since having BM and symptoms resolved do not think SBO present -Will start clear liquids now and if tolerates will advance and can likely dc tomorrow Qualifiers: Vomiting type: unspecified Vomiting Intractability: non-intractable Qualified Code(s): R11.2 - Nausea with vomiting, unspecified History of Present Illness Consult date: 12/10/18 Reason for consult: abdominal pain Requesting physician: Sancho Echevarria History of present illness: Dc from hospital yeasterday after having a LHC. Overnight she woke up with abdominal pain, nausea and 3 episodes of vomiting. She had not had a BM for a few days and has had similar episodes like this previously after being con stipated. After admission to the hospital for concern of SBO via CT abd she had 2 BM and has felt better since. She no longer is experiencing nausea, no further vomiting, and now has appetite. She denies subjective fever/chills, diarrhea, hematemesis, melena. Past Med Surg Social Fam HX - Past Medical History Medical history: arthritis, cancer, cardiomyopathy, GERD, GI bleed, hyperlipidemia, hypertension, kidney stones, liver disease, osteoporosis, renal disease, thyroid disease, valvular heart disease Additional medical history: anal canal cancer Psychiatric history: no psych history - Past Surgical History Surgical History: , cholecystectomy, BRAULIO/BSO, other - Social History Smoking Status: Never smoker Smokeless Tobacco Status: No Alcohol use: none Drug use: none - Family History Father History Unknown: Yes Living Status: Mother Living Status: Age at : 86 Cause of : CVA Hx Family Cardiac Disorders: Yes (HTN) Hx Family Respiratory Disorders: Yes (copd) Medications and Allergies RX: Aspirin Enteric Coated [Aspirin EC] 81 mg PO DAILY 08/31/15 [History] RX: Calcium Carbonate [Calcium] 500 mg PO BID 05/03/16 [History] RX: Ergocalciferol (VITAMIN D2) [Vitamin D] 800 unit PO DAILY 05/03/16 [History] RX: Levothyroxine [Synthroid] 25 mcg PO QAM 06/23/16 [History] RX: Oxybutynin Chloride [Ditropan Xl] 10 mg PO HS 06/23/16 [History] RX: Raloxifene [Evista] 60 mg PO DAILY #30 tablet 11/14/16 [Rx] RX: Docusate [Colace] 100 mg PO BID PRN #60 capsule 01/13/17 [Rx] RX: Atorvastatin [Lipitor] 40 mg PO HS 02/23/18 [History] RX: Pantoprazole Sodium [Protonix] 40 mg PO DAILY 02/23/18 [History] RX: Amlodipine Besylate 10 mg PO DAILY 12/07/18 [History] RX: Gabapentin [Neurontin] 100 mg PO HS 12/07/18 [History] RX: Lisinopril [Zestril] 40 mg PO HS 12/07/18 [History] RX: Thiamine HCl [Vitamin B-1] 100 mg PO DAILY 12/07/18 [History] RX: raNITIdine HCl [Zantac] 150 mg PO HS 12/07/18 [History] RX: Bisoprolol Fumarate [Zebeta] 10 mg PO DAILY #30 tablet 12/09/18 [Rx] RX: Hydrochlorothiazide [Microzide] 12.5 mg PO DAILY #30 capsule 12/09/18 [Rx] RX: Ferrous Sulfate 325 mg PO DAILY 12/10/18 [History] Allergy/AdvReac Type Severity Reaction Status Date / Time latex Allergy Hives Verified 12/10/18 06:39 Review of Systems All systems PM: The remainder of the systems were reviewed and are negative General Surgery Exam Initial Vital Signs Temp Pulse Resp BP Pulse Ox 98.1 F 94 20 183/75 100 12/10/18 06:40 12/10/18 06:40 12/10/18 06:40 12/10/18 06:40 12/10/18 06:40 - General physical appearance well developed, well nourished, no distress - Eyes normal ocular movement - ENT normal mucosa - Neck trachea midline - Respiratory normal expansion, normal respiratory effort, clear to auscultation - Cardiovascular Cardiovascular exam: Present: RRR. Absent: bradycardia, tachycardia, irregular rhythm, murmurs, clicks, rubs, gallop, distant heart sounds, JVD - Abdomen Abdomen general surgery: Present: bowel sounds present, soft, non tender. Absent: distended, tender, organomegaly, masses, guarding, rebound, rigid - Integumentary Integumentary general surgery: Present: warm and dry - Neurologic Present: CN 2-12 grossly intact - Psychiatric Psychiatric general surgery: Present: A&Ox3, appropriate Exam Initial Vital Signs Temp Pulse Resp BP Pulse Ox 98.1 F 94 20 183/75 100 12/10/18 06:40 12/10/18 06:40 12/10/18 06:40 12/10/18 06:40 12/10/18 06:40 Results - Labs 12/10/18 06:59 12/10/18 06:59 Abnormal lab results WBC 12.4 K/mcL (4.3-11.1) H D 12/10/18 06:59 MCH 27.9 pg (28.0-33.3) L 12/10/18 06:59 Neutrophils # 10.2 K/mcL (1.6-8.9) H 12/10/18 06:59 Sodium 135 mEq/L (136-145) L 12/10/18 06:59 Glucose 227 mg/dL (70-105) H 12/10/18 06:59 Lactic Acid 2.6 mmol/L (0.5-2.2) H 12/10/18 12:03 Amylase 17 Units/L (29-103) L 12/10/18 06:59 Lipase 9 Units/L (11-82) L 12/10/18 06:59 Diabetes panel 12/10/18 Range/Units 06:59 Sodium 135 L (136-145) mEq/L Potassium 4.3 (3.5-5.1) mEq/L Chloride 101 (98-107) mEq/L Carbon Dioxide 23 (23-29) mEq/L BUN 20 (8-23) mg/dL Creatinine 0.77 (0.60-1.20) mg/dL Glucose 227 H (70-105) mg/dL Calcium 9.8 (8.6-10.3) mg/dL AST 26 (13-39) Units/L ALT 19 (7-52) Units/L Alkaline Phosphatase 85 (34-104) Units/L Albumin 4.0 (3.5-5.7) g/dL Calcium panel 12/10/18 Range/Units 06:59 Calcium 9.8 (8.6-10.3) mg/dL Albumin 4.0 (3.5-5.7) g/dL Pituitary panel 12/10/18 Range/Units 06:59 Sodium 135 L (136-145) mEq/L Potassium 4.3 (3.5-5.1) mEq/L Chloride 101 (98-107) mEq/L Carbon Dioxide 23 (23-29) mEq/L BUN 20 (8-23) mg/dL Creatinine 0.77 (0.60-1.20) mg/dL Glucose 227 H (70-105) mg/dL Calcium 9.8 (8.6-10.3) mg/dL Adrenal panel 12/10/18 Range/Units 06:59 Sodium 135 L (136-145) mEq/L Potassium 4.3 (3.5-5.1) mEq/L Chloride 101 (98-107) mEq/L Carbon Dioxide 23 (23-29) mEq/L BUN 20 (8-23) mg/dL Creatinine 0.77 (0.60-1.20) mg/dL Glucose 227 H (70-105) mg/dL Calcium 9.8 (8.6-10.3) mg/dL Total Bilirubin 0.4 (0.3-1.0) mg/dL AST 26 (13-39) Units/L ALT 19 (7-52) Units/L Alkaline Phosphatase 85 (34-104) Units/L Albumin 4.0 (3.5-5.7) g/dL All other labs normal. Consult Discharge Plan - Plan Referrals: Victor Hugo Fernandez DO [Primary Care Provider] - <Dez Ruffin - Last Filed: 12/10/18 17:46> Date of Encounter: 12/10/18 Review of Systems All systems PM: The remainder of the systems were reviewed and are negative General Surgery Exam Initial Vital Signs Temp Pulse Resp BP Pulse Ox 98.1 F 94 20 183/75 100 12/10/18 06:40 12/10/18 06:40 12/10/18 06:40 12/10/18 06:40 12/10/18 06:40 Exam Initial Vital Signs Temp Pulse Resp BP Pulse Ox 98.1 F 94 20 183/75 100 12/10/18 06:40 12/10/18 06:40 12/10/18 06:40 12/10/18 06:40 12/10/18 06:40 Results - Labs 12/10/18 06:59 12/10/18 06:59 Abnormal lab results WBC 12.4 K/mcL (4.3-11.1) H D 12/10/18 06:59 MCH 27.9 pg (28.0-33.3) L 12/10/18 06:59 Neutrophils # 10.2 K/mcL (1.6-8.9) H 12/10/18 06:59 Sodium 135 mEq/L (136-145) L 12/10/18 06:59 Glucose 227 mg/dL (70-105) H 12/10/18 06:59 Lactic Acid 2.6 mmol/L (0.5-2.2) H 12/10/18 12:03 Amylase 17 Units/L (29-103) L 12/10/18 06:59 Lipase 9 Units/L (11-82) L 12/10/18 06:59 Diabetes panel 12/10/18 Range/Units 06:59 Sodium 135 L (136-145) mEq/L Potassium 4.3 (3.5-5.1) mEq/L Chloride 101 (98-107) mEq/L Carbon Dioxide 23 (23-29) mEq/L BUN 20 (8-23) mg/dL Creatinine 0.77 (0.60-1.20) mg/dL Glucose 227 H (70-105) mg/dL Calcium 9.8 (8.6-10.3) mg/dL AST 26 (13-39) Units/L ALT 19 (7-52) Units/L Alkaline Phosphatase 85 (34-104) Units/L Albumin 4.0 (3.5-5.7) g/dL Calcium panel 12/10/18 Range/Units 06:59 Calcium 9.8 (8.6-10.3) mg/dL Albumin 4.0 (3.5-5.7) g/dL Pituitary panel 12/10/18 Range/Units 06:59 Sodium 135 L (136-145) mEq/L Potassium 4.3 (3.5-5.1) mEq/L Chloride 101 (98-107) mEq/L Carbon Dioxide 23 (23-29) mEq/L BUN 20 (8-23) mg/dL Creatinine 0.77 (0.60-1.20) mg/dL Glucose 227 H (70-105) mg/dL Calcium 9.8 (8.6-10.3) mg/dL Adrenal panel 12/10/18 Range/Units 06:59 Sodium 135 L (136-145) mEq/L Potassium 4.3 (3.5-5.1) mEq/L Chloride 101 (98-107) mEq/L Carbon Dioxide 23 (23-29) mEq/L BUN 20 (8-23) mg/dL Creatinine 0.77 (0.60-1.20) mg/dL Glucose 227 H (70-105) mg/dL Calcium 9.8 (8.6-10.3) mg/dL Total Bilirubin 0.4 (0.3-1.0) mg/dL AST 26 (13-39) Units/L ALT 19 (7-52) Units/L Alkaline Phosphatase 85 (34-104) Units/L Albumin 4.0 (3.5-5.7) g/dL All other labs normal. - Attending Attestation I examined this patient and my medical decision-[facility]. I agree with the documented findings, disposition and treatment plan as described except to the extent set forth below. The patient is seen and evaluated. She has had 2 bowel movements since being admitted to the hospital. Since that time she has had no further nausea or vomiting. I personally reviewed the CAT scan of the abdomen. She had very mildly dilated small bowel in a diffuse pattern. This is consistent with a ileus. This does not appear to be a high-grade bowel obstruction. Since she is no longer symptomatic and is having bowel movements have recommended a clear liquid diet. Dez Ruffin MD FACS
[2018-12-10] MEDS ORDERED: Ondansetron 4 MG/2 ML VIAL IVP PRN (16:19)
[2018-12-10] MEDS ORDERED: Naloxone 0.4 MG/ML INJ IVP PRN (17:21)
[2018-12-10] MEDS: 0.9 % Sodium Chloride 1,000 ML IVC SCH (20:34)
[2018-12-10] MEDS ORDERED: Lisinopril 20 MG TABLET PO SCH (21:00)
[2018-12-10] MEDS ORDERED: Gabapentin 100 MG CAPSULE PO SCH (21:00)
--- NOTE | 2018-12-10 21:56 | Internal Med History&Physical ---
Date of Encounter: 12/10/18 Time of Encounter: 19:00 Internal Medicine - H&P: HPI Chief complaint: Periumbilical pain; n/v. Admitted From: Home Plans for Post Hospital Care: Home History of present illness: The patient is admitted with nausea and vomitingstarted around 3 in the morning. Associated with periumbilical abdominal painmoderate to severe. Sharp in nature. The pain basically subsided in the emergency room. I found her in the room sleepingafter the admission. The patient had left heart catheterization without any interventions 2 days ago. Then, she was released home. PAST MEDICAL HX: She has been treated for hypertension, hyperlipidemia, GERD, hypothyroidism, DJD and osteoporosis. She has mild aortic stenosis. She was treated for GI bleeding and to kidney stones in the past. She has history of cancer, cannot tell what kind. She had a few surgeries in the past including , BRAULIO/BSO and cholecystectomy. PAST FAMILY HX: See below PAST SOCIAL HX: She has never used tobacco. She has no history of alcohol or illicit drug use. REVIEW OF SYSTEMS: All 14 organ systems were reviewed by me with the patient. Positive and pertinent negative findings are listed above. The rest of organ systems is negative. PHYSICAL EXAM: Skin: Free of rash and discoloration. Eyes: Sclera is white. There is no discharge from eyes. ENMT: Oral/pharyngeal mucosa is normal in appearance. There is no discharge from nose or ears. Respiratory: Normal breath sounds with no crackles and wheezes bilaterally. CV: Heart is regular with no gallop or murmur. GI: Abdomen is flat and soft with no palpable mass or visceromegaly. : There is no tenderness in patient's flanks bilaterally. Neuro exam: He has good strength in upper and lower extremities. He has normal eye movements. Psychiatric: He has normal affect. His thought process is appropriate to the situation. ADDITIONAL DATA: Chest x-ray does not show any acute cardiopulmonary abnormality. CT of abdomen and pelvis without contrast shows dilated proximal small bowel loop and distal decompression consistent with small bowel obstruction. Transient point he is seen in the right lower quadrant. It shows status post cholecystectomy and hysterectomy. Echocardiogram from 12/07/18 shows ejection fraction of 60-65%. It shows mild ao rtic stenosis. Hemoglobin is 13.4 with WBC of 12.4 thousand and normal platelet count. BMP is normal except of slightly increased glucose of 227. Lactic acid is 2.6. Liver function tests are normal. Amylase and lipase are normal, too. A/P: Small bowel obstruction, likely secondary to abdominal adhesions (had multiple surgeries in the past). General surgery is consulted. The patient is on clear liquids. We gave her IV normal saline at 75 mL/h. She will be taking when necessary sublingual oxycodone for pain control. She will be taking when necessary IV Zofran for nausea/vomiting. KUB will be done tomorrow morning. She has mild aortic stenosis. Not compromising her circulation. Other problems are listed in past medical history. They are stable/under control. Past Med Surg Social Fam HX - Past Medical History Medical history: arthritis, cancer, cardiomyopathy, GERD, GI bleed, hyperlipidemia, hypertension, kidney stones, liver disease, osteoporosis, renal disease, thyroid disease, valvular heart disease Additional medical history: anal canal cancer Psychiatric history: no psych history - Past Surgical History Surgical History: , cholecystectomy, BRAULIO/BSO, other - Social History Smoking Status: Never smoker Smokeless Tobacco Status: No Alcohol use: none Drug use: none - Family History Father History Unknown: Yes Living Status: Mother Living Status: Age at : 86 Cause of : CVA Hx Family Cardiac Disorders: Yes (HTN) Hx Family Respiratory Disorders: Yes (copd) Internal Medicine - H&P: Meds Aspirin Enteric Coated [Aspirin EC] 81 mg PO DAILY 08/31/15 [History] Calcium Carbonate [Calcium] 500 mg PO BID 05/03/16 [History] Ergocalciferol (VITAMIN D2) [Vitamin D] 800 unit PO DAILY 05/03/16 [History] Levothyroxine [Synthroid] 25 mcg PO QAM 06/23/16 [History] Oxybutynin Chloride [Ditropan Xl] 10 mg PO HS 06/23/16 [History] Raloxifene [Evista] 60 mg PO DAILY #30 tablet 11/14/16 [Rx] Docusate [Colace] 100 mg PO BID PRN #60 capsule 01/13/17 [Rx] Atorvastatin [Lipitor] 40 mg PO HS 02/23/18 [History] Pantoprazole Sodium [Protonix] 40 mg PO DAILY 02/23/18 [History] Amlodipine Besylate 10 mg PO DAILY 12/07/18 [History] Gabapentin [Neurontin] 100 mg PO HS 12/07/18 [History] Lisinopril [Zestril] 40 mg PO HS 12/07/18 [History] Thiamine HCl [Vitamin B-1] 100 mg PO DAILY 12/07/18 [History] raNITIdine HCl [Zantac] 150 mg PO HS 12/07/18 [History] Bisoprolol Fumarate [Zebeta] 10 mg PO DAILY #30 tablet 12/09/18 [Rx] Hydrochlorothiazide [Microzide] 12.5 mg PO DAILY #30 capsule 12/09/18 [Rx] Ferrous Sulfate 325 mg PO DAILY 12/10/18 [History] Allergy/AdvReac Type Severity Reaction Status Date / Time latex Allergy Hives Verified 12/10/18 06:39 - Constitutional Vitals: Temp Pulse Resp BP Pulse Ox 97.8 F 71 16 162/69 98 12/10/18 18:45 12/10/18 18:45 12/10/18 18:45 12/10/18 18:45 12/10/18 18:45 General appearance: Present: A&O X 3, no acute distress, answers questions appropriately Exam: xx Internal Med - H&P Results - Labs CBC & Chem 7: 12/10/18 06:59 12/10/18 06:59 Labs: Short CBC 12/10/18 Range/Units 06:59 WBC 12.4 H D (4.3-11.1) K/mcL Hgb 13.4 D (11.5-15.4) g/dL Hct 40.9 (35.3-44.9) % Plt Count 274 (140-400) K/mcL Neutrophils # 10.2 H (1.6-8.9) K/mcL BMP 12/10/18 06:59 Sodium 135 L Potassium 4.3 Chloride 101 Carbon Dioxide 23 BUN 20 Creatinine 0.77 Glucose 227 H Calcium 9.8 Cardiac Enzymes 12/10/18 Range/Units 06:59 Troponin I 0.03 (< 0.04) ng/mL Liver Function 12/10/18 Range/Units 06:59 Total Bilirubin 0.4 (0.3-1.0) mg/dL Direct Bilirubin 0.1 (0.0-0.2) mg/dL AST 26 (13-39) Units/L ALT 19 (7-52) Units/L Alkaline Phosphatase 85 (34-104) Units/L Albumin 4.0 (3.5-5.7) g/dL - Impressions ITS Impressions Chest X-Ray 12/10/18 06:38 IMPRESSION: No acute cardiopulmonary abnormality. D/ / Augustine Johnson MD / Augustine Johnson MD Interpreting Provider: Augustine Johnson MD Abdomen/Pelvis CT 12/10/18 07:04 IMPRESSION: 1. Dilated proximal small bowel loops and distal decompression consistent with small bowel obstruction. Transition point is seen in the right lower quadrant. Small bowel measures up to 3.3 cm in diameter. 2. Status post cholecystectomy and hysterectomy. D/ / 12/10/2018 08:09:15 Augustine Johnson MD / Denisse Summers Interpreting Provider: Augustine Johnson MD - Assessment and Plan (1) Small bowel obstruction Current Visit: Yes Status: Acute (2) Abdominal adhesions Current Visit: Yes Status: Chronic (3) Aortic stenosis Current Visit: Yes Status: Chronic Qualifiers: Cardiac valve disease etiology: etiology unspecified Qualified Code(s): I35.0 - Nonrheumatic aortic (valve) stenosis (4) Hypertension Current Visit: Yes Status: Chronic Qualifiers: Hypertension type: essential hypertension Qualified Code(s): I10 - Essential (primary) hypertension - Time Spent With Patient Total time spent is greater than 50% in coordination of care (as documented) at patient's floor/unit and/or counseling patient:
[2018-12-11 00:44] LABS: Bilirubin,Urine Negative (Negative); Blood,Urine Trace (Negative); Clarity,Urine Hazy (Clear); Color,Urine Yellow (Yellow); Glucose,Urine (UA) Normal (Normal); Ketones,Urine Negative (Negative); Leukocyte Esterase,Urine Large (Negative); Nitrite,Urine Positive (Negative); PH,Urine 5.5 pH Units (5.0-8.0); Protein,Urine Negative (Neg-Trace); Specific Gravity,Urine 1.019 (1.010-1.025); Urobilinogen,Urine Normal (Normal)
[2018-12-11 00:46] LABS: Squamous Epithelial Cell,Urine Moderate per lpf (None-Few); WBC,Urine 50-100 per hpf (0-3)
[2018-12-11 01:08] LABS: Bacteria,Urine Many per hpf (None-Few)
[2018-12-11] MEDS: 0.9 % Sodium Chloride 1,000 ML IVC SCH (06:06)
[2018-12-11] MEDS ORDERED: Levothyroxine 25 MCG TABLET PO SCH (06:30)
[2018-12-11 06:44] LABS: Basophils # 0.1 K/mcL (0.0-0.2); Basophils % 1.1 %; Eosinophils # 0.2 K/mcL (0.0-0.6); Eosinophils % 3.1 %; Hematocrit 37.3 % (35.3-44.9); Hemoglobin 11.9 g/dL (11.5-15.4); Immature Granulocytes % 1.6 % (0-4); Lymphocytes # 1.8 K/mcL (0.6-4.6); Lymphocytes % 24.5 %; Mean Corpuscular HGB Conc 31.9 g/dL (31.6-35.5); Mean Corpuscular Volume 87.8 fL (83.0-100.0); Mean Platelet Volume 10.7 fL (9.4-12.4); Monocytes # 0.5 K/mcL (0.0-1.3); Monocytes % 6.8 %; Neutrophils # 4.6 K/mcL (1.6-8.9); Platelet Count 235 K/mcL (140-400); Red Blood Count 4.25 M/mcL (3.82-4.97); Red Cell Distribution Width 13.5 % (11.5-14.5); Segmented Neutrophils % 62.9 %
[2018-12-11 07:05] LABS: BUN/Creatinine Ratio 22 (6-26); Blood Urea Nitrogen 14 mg/dL (8-23); Calcium 8.6 mg/dL (8.6-10.3); Carbon Dioxide 22 mEq/L (23-29); Chloride 105 mEq/L (98-107); Glucose 134 mg/dL (70-105); Magnesium 1.7 mg/dL (1.6-2.6); Osmolality,Calculated 288 (280-300); Potassium 3.4 mEq/L (3.5-5.1); Sodium 138 mEq/L (136-145); eGFR For Non-African Americans > 60 (> 60)
[2018-12-11 07:19] VITALS: BP 149/73
--- NOTE | 2018-12-11 08:57 | General Surgery Progress Note ---
<Diony Major - Last Filed: 12/11/18 10:28> Date of Encounter: 12/11/18 Time of Encounter: 08:53 - Assessment and Plan (1) Nausea and vomiting Status: Resolved -N/V, abdominal pain readmitted 1 day post dc from hospital after LHC -Symptoms have since resolved after having 2 BM after admission -Afebrile, mild leukocytosis at 12.4 up from 8.4 2 days ago, lactic elevated at 2.6 on admission -CT abd/plv with concern of SBO with dilated proximal small bowel with trans ition in RLQ -No further symptoms since arrival, continues to have BM, tolerated diet well, leukocytosis resolved -No evidence of SBO and likely mild ileus which has resolved -Surgery signing off and ok to discharge when primary service ready Qualifiers: Vomiting type: unspecified Vomiting Intractability: non-intractable Quali fied Code(s): R11.2 - Nausea with vomiting, unspecified Subjective Patient reports: no new complaints, feels better, tolerating a regular diet, v oiding w/o difficulty, bowel movement, afebrile Objective Vital Signs - Last 8 Hours Temp Pulse Resp BP Pulse Ox 12/11/18 07:15 98 F 75 17 149/73 97 12/11/18 03:14 98.4 F 71 16 171/68 93 Intake and Output 12/10/18 12/11/18 12/11/18 23:59 07:59 15:59 Intake Total 1000 / 1000 Balance 1000 / 1000 Intake: IV Fluids 1000 / 1000 0.9 % Sodium Chloride 1,000 ML 1000 / 1000 @ 75 mls/hr IVC .[id number] [facility] Rx #:[id number] Other: Meal NPO Stool Size Moderate Stool Consistency soft Stool Color Green # Bowel Movement Diapers 1 Weight 81 kg Patient Weight 12/11/18 23:59 Weight 81 kg - General physical appearance well developed, well nourished, no distress - Eyes normal ocular movement - ENT dry mucosa - Neck Neck exam: trachea midline - Respiratory normal expansion, normal respiratory effort, clear to auscultation - Cardiovascular Cardiovascular exam: Present: RRR. Absent: bradycardia, tachycardia, irregular rhythm, murmurs, clicks, rubs, gallop, distant heart sounds, JVD - Abdomen Abdomen: Present: bowel sounds present, soft, non tender. Absent: distended, tender, organomegaly, masses, guarding, rebound, rigid - Integumentary no rash - Neurologic CN 2-12 grossly intact, normal coordination - Psychiatric speech is normal - Labs 12/11/18 04:34 12/11/18 04:34 Diabetes panel 12/10/18 12/11/18 Range/Units 06:59 04:34 Sodium 135 L 138 (136-145) mEq/L Potassium 4.3 3.4 L (3.5-5.1) mEq/L Chloride 101 105 (98-107) mEq/L Carbon Dioxide 23 22 L (23-29) mEq/L BUN 20 14 (8-23) mg/dL Creatinine 0.77 0.63 (0.60-1.20) mg/dL Glucose 227 H 134 H (70-105) mg/dL Calcium 9.8 8.6 (8.6-10.3) mg/dL AST 26 (13-39) Units/L ALT 19 (7-52) Units/L Alkaline Phosphatase 85 (34-104) Units/L Albumin 4.0 (3.5-5.7) g/dL Calcium panel 12/10/18 12/11/18 Range/Units 06:59 04:34 Calcium 9.8 8.6 (8.6-10.3) mg/dL Albumin 4.0 (3.5-5.7) g/dL Pituitary panel 12/10/18 12/11/18 Range/Units 06:59 04:34 Sodium 135 L 138 (136-145) mEq/L Potassium 4.3 3.4 L (3.5-5.1) mEq/L Chloride 101 105 (98-107) mEq/L Carbon Dioxide 23 22 L (23-29) mEq/L BUN 20 14 (8-23) mg/dL Creatinine 0.77 0.63 (0.60-1.20) mg/dL Glucose 227 H 134 H (70-105) mg/dL Calcium 9.8 8.6 (8.6-10.3) mg/dL Adrenal panel 12/10/18 12/11/18 Range/Units 06:59 04:34 Sodium 135 L 138 (136-145) mEq/L Potassium 4.3 3.4 L (3.5-5.1) mEq/L Chloride 101 105 (98-107) mEq/L Carbon Dioxide 23 22 L (23-29) mEq/L BUN 20 14 (8-23) mg/dL Creatinine 0.77 0.63 (0.60-1.20) mg/dL Glucose 227 H 134 H (70-105) mg/dL Calcium 9.8 8.6 (8.6-10.3) mg/dL Total Bilirubin 0.4 (0.3-1.0) mg/dL AST 26 (13-39) Units/L ALT 19 (7-52) Units/L Alkaline Phosphatase 85 (34-104) Units/L Albumin 4.0 (3.5-5.7) g/dL Consult Discharge Plan - Plan Instructions: Chest Pain (DC), Hypothyroidism (DC), Bowel Obstruction (DC), Ileus (DC), Pneumonia (DC) Referrals: Victor Hugo Fernandez DO [Primary Care Provider] - <Dez Ruffin - Last Filed: 12/11/18 17:08> Date of Encounter: 12/11/18 Objective Intake and Output 12/11/18 12/11/18 12/11/18 07:59 15:59 23:59 Intake Total 1000 / 1000 975 / 975 Output Total 300 / 300 Balance 1000 / 1000 675 / 675 Intake: IV Fluids 1000 / 1000 375 / 375 0.9 % Sodium Chloride 1,000 ML 1000 / 1000 375 / 375 @ 75 mls/hr IVC .[id number] [facility] Rx #:[id number] Oral 600 / 600 Output: Urine 300 / 300 Other: Meal Lunch Percent of Meal Consumed 100% Stool Size Moderate Stool Consistency liquid Stool Characteristics Normal for Patient Stool Color Green # Bowel Movements 1 # Bowel Movement Diapers 1 Weight 81 kg Patient Weight 12/11/18 23:59 Weight 81 kg - Labs 12/11/18 04:34 12/11/18 04:34 Diabetes panel 12/10/18 12/11/18 Range/Units 06:59 04:34 Sodium 135 L 138 (136-145) mEq/L Potassium 4.3 3.4 L (3.5-5.1) mEq/L Chloride 101 105 (98-107) mEq/L Carbon Dioxide 23 22 L (23-29) mEq/L BUN 20 14 (8-23) mg/dL Creatinine 0.77 0.63 (0.60-1.20) mg/dL Glucose 227 H 134 H (70-105) mg/dL Calcium 9.8 8.6 (8.6-10.3) mg/dL AST 26 (13-39) Units/L ALT 19 (7-52) Units/L Alkaline Phosphatase 85 (34-104) Units/L Albumin 4.0 (3.5-5.7) g/dL Calcium panel 12/10/18 12/11/18 Range/Units 06:59 04:34 Calcium 9.8 8.6 (8.6-10.3) mg/dL Albumin 4.0 (3.5-5.7) g/dL Pituitary panel 12/10/18 12/11/18 Range/Units 06:59 04:34 Sodium 135 L 138 (136-145) mEq/L Potassium 4.3 3.4 L (3.5-5.1) mEq/L Chloride 101 105 (98-107) mEq/L Carbon Dioxide 23 22 L (23-29) mEq/L BUN 20 14 (8-23) mg/dL Creatinine 0.77 0.63 (0.60-1.20) mg/dL Glucose 227 H 134 H (70-105) mg/dL Calcium 9.8 8.6 (8.6-10.3) mg/dL Adrenal panel 12/10/18 12/11/18 Range/Units 06:59 04:34 Sodium 135 L 138 (136-145) mEq/L Potassium 4.3 3.4 L (3.5-5.1) mEq/L Chloride 101 105 (98-107) mEq/L Carbon Dioxide 23 22 L (23-29) mEq/L BUN 20 14 (8-23) mg/dL Creatinine 0.77 0.63 (0.60-1.20) mg/dL Glucose 227 H 134 H (70-105) mg/dL Calcium 9.8 8.6 (8.6-10.3) mg/dL Total Bilirubin 0.4 (0.3-1.0) mg/dL AST 26 (13-39) Units/L ALT 19 (7-52) Units/L Alkaline Phosphatase 85 (34-104) Units/L Albumin 4.0 (3.5-5.7) g/dL - Attending Attestation I examined this patient and my medical decision-making was reviewed with the Resident Physician. I agree with the documented findings, disposition and treatment plan as described except to the extent set forth below. The patient is seen and evaluated on morning rounds with resident. She is now having bowel movements. Her nausea and vomiting has resolved. Surgery will sign off at this point no evidence of bowel obstruction. Dez Ruffin MD FACS
[2018-12-11] MEDS ORDERED: (Bisoprolol Fumarate [Zebeta] 10 MG) PO SCH (09:00)
[2018-12-11] MEDS ORDERED: amLODIPine 5 MG TABLET PO SCH (09:00)
[2018-12-11] MEDS ORDERED: Aspirin Enteric Coated 81 MG Tablet PO SCH (09:00)
[2018-12-11] MEDS ORDERED: hydroCHLOROthiazide 25 MG TABLET PO SCH (09:00)
--- NOTE | 2018-12-11 13:57 | Discharge Summary ---
- NOTES TO OUTPATIENT PROVIDER Notes to Outpatient Provider: none Orders not resulted at time of discharge: Pending orders 12/10/18 23:40 Culture,Urine [RM] Stat Date of Encounter: 12/11/18 Time of Encounter: 11:00 - Discharge Diagnosis (1) Nausea and vomiting Priority: Primary Status: Resolved Qualifiers: Vomiting type: unspecified Vomiting Intractability: non-intractable Qualified Code(s): R11.2 - Nausea with vomiting, unspecified Hospital course: Patient is a 73-year-old female who presented to the ER due to nausea/vomiting and abdominal pain and was admitted to the hospital due to concerns of small bowel obstruction. General surgery was consulted and symptoms had resolved on evaluation. Patient also had bowel movements, was tolerating by mouth and leukocytosis resolved. No evidence of small bowel obstruction and general surgery with recommendations for discharge and follow-up with primary care provider. - Time Spent with Patient Total time spent providing and/or coordinating discharge services: Time spent: Less than 30 minutes - Discharge Medications Prescriptions: Continue Aspirin Enteric Coated [Aspirin EC] 81 mg PO DAILY Ergocalciferol (VITAMIN D2) [Vitamin D] 800 unit PO DAILY Calcium Carbonate [Calcium] 500 mg PO BID Levothyroxine [Synthroid] 25 mcg PO QAM Oxybutynin Chloride [Ditropan Xl] 10 mg PO HS Raloxifene [Evista] 60 mg PO DAILY #30 tablet Docusate [Colace] 100 mg PO BID PRN #60 capsule PRN Reason: Constipation Atorvastatin [Lipitor] 40 mg PO HS Pantoprazole Sodium [Protonix] 40 mg PO DAILY Thiamine HCl [Vitamin B-1] 100 mg PO DAILY Amlodipine Besylate 10 mg PO DAILY Gabapentin [Neurontin] 100 mg PO HS Lisinopril [Zestril] 40 mg PO HS raNITIdine HCl [Zantac] 150 mg PO HS Bisoprolol Fumarate [Zebeta] 10 mg PO DAILY #30 tablet Hydrochlorothiazide [Microzide] 12.5 mg PO DAILY #30 capsule Ferrous Sulfate 325 mg PO DAILY Home Medications: Aspirin Enteric Coated [Aspirin EC] 81 mg PO DAILY 08/31/15 [History] Calcium Carbonate [Calcium] 500 mg PO BID 05/03/16 [History] Ergocalciferol (VITAMIN D2) [Vitamin D] 800 unit PO DAILY 05/03/16 [History] Levothyroxine [Synthroid] 25 mcg PO QAM 06/23/16 [History] Oxybutynin Chloride [Ditropan Xl] 10 mg PO HS 06/23/16 [History] Raloxifene [Evista] 60 mg PO DAILY #30 tablet 11/14/16 [Rx] Docusate [Colace] 100 mg PO BID PRN #60 capsule 01/13/17 [Rx] Atorvastatin [Lipitor] 40 mg PO HS 02/23/18 [History] Pantoprazole Sodium [Protonix] 40 mg PO DAILY 02/23/18 [History] Amlodipine Besylate 10 mg PO DAILY 12/07/18 [History] Gabapentin [Neurontin] 100 mg PO HS 12/07/18 [History] Lisinopril [Zestril] 40 mg PO HS 12/07/18 [History] Thiamine HCl [Vitamin B-1] 100 mg PO DAILY 12/07/18 [History] raNITIdine HCl [Zantac] 150 mg PO HS 12/07/18 [History] Bisoprolol Fumarate [Zebeta] 10 mg PO DAILY #30 tablet 12/09/18 [Rx] Hydrochlorothiazide [Microzide] 12.5 mg PO DAILY #30 capsule 12/09/18 [Rx] Ferrous Sulfate 325 mg PO DAILY 12/10/18 [History] Allergies/Adverse Reactions: Allergy/AdvReac Type Severity Reaction Status Date / Time latex Allergy Hives Verified 12/10/18 06:39 Date of admission: 12/10/18 08:55 Primary care physician: Victor Hugo Fernandez Consults: 12/10/18 07:59 Consult to Surgery [CONS] Stat Consulting Provider: [facility] Reason for Consult: small bowel obstruction Time Notified: 08:00 Call Completed: Yes - Constitutional Vitals: Temp Pulse Resp BP Pulse Ox 98 F 75 17 149/73 97 12/11/18 07:15 12/11/18 07:15 12/11/18 07:15 12/11/18 07:15 12/11/18 07:15 General appearance: Present: A&O X 3, no acute distress, answers questions appropriately Exam: Gen.: Nonacute distress, alert and oriented 3 Skin: Normal color - Patient Status Disposition: Home, Self-Care Condition: Good - Discharge Instructions Instructions: Chest Pain (DC), Hypothyroidism (DC), Bowel Obstruction (DC), Ileus (DC), Pneumonia (DC) Follow Up With: Victor Hugo Fernandez DO [Primary Care Provider] - Forms: ED Satisfaction Letter, Work/School Release
--- NOTE | 2018-12-11 14:17 | Electrocardiograph Report ---
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
== END 2018-12-11 14:52 | disposition home or self-care (01) | DRG 389 ==
LOC: EMEROOARM 06:18 → SUATTDRO 08:55 → 3BNU 08:55
PROVIDERS: ADMIT Internal Medicine; ATTEND Hospitalist

== ENCOUNTER 2019-05-31 18:54 | Observation (INO) ==
[2019-05-31] MEDS ORDERED: 0.9 % Sodium Chloride 1,000 ML IVC ONE (19:25)
[2019-05-31] MEDS ORDERED: Morphine Sulfate 2 MG/ML SYRINGE IVP ONE (19:25)
[2019-05-31] MEDS ORDERED: Famotidine 20 MG/2 ML VIAL IVP ONE (19:25)
[2019-05-31] MEDS ORDERED: Ondansetron 4 MG/2 ML VIAL IVP ONE (19:25)
--- NOTE | 2019-05-31 19:29 | Emergency Department Note ---
Disposition Clinical Impression: Partial small bowel obstruction, Enteritis, Elevated lactic acid level Disposition: Admitted As Inpatient Condition: Fair Time of Disposition: 22:25 Abdominal Pain HPI - General Chief Complaint: ED Abdominal Pain Stated Complaint: ABD Pain Time Seen by Provider: 05/31/19 19:10 Source: patient Mode of arrival: ambulatory Limitations: no limitations Nursing Notes Reviewed: Yes Vital Signs Reviewed: Yes - History of Present Illness HPI Narrative: Patient presents emergency Department with chief complaint of epigastric and periumbilical abdominal pain. The patient states that she followed up with her urologist today as a follow-up from a ER visit March where she had a small punctate right-sided kidney stone that she was told she would probably pass on her own. She has been doing well, she had an outpatient x-ray which she did not hear the results of, at the request of her urologist but had no symptoms when she saw her urologist. She states she ate [employer] today and had a hamburger, and chocolate milk and had no significant symptoms with eating but then a few hours later she started having periumbilical abdominal pain and epigastric pain associated with nausea and vomiting. She denies actual loose stool or diarrhea but reports she has had increased amounts of stool since this morning. She states that she has had no black or bloody stool but her stool is always a little bit dark from iron. She has not tried taking anything for her symptoms she does have a history of heartburn and gastritis in the past but feels like this is somewhat different she denies back pain or flank pain or urinary changes and states this does not feel like her prior kidney stones. She denies headache neck pain chest pain or shortness of breath. She denies palpitations. She denies pain into her back. Nothing really makes her worse or better but again she has not tried taking anything. Patient denies any recent travel, she states that she was recently placed on antibiotic for a gum infection, however got diarrhea after one day of amoxicillin so she stopped taking that and her diarrhea had resolved. She still has some discomfort in her gingiva and swelling noted of her lower gums. The patient states she has not no dentist but does not have teeth and she cannot afford a dentist. Pain Scale: 10 - Related Data Home Medications Medication Instructions Recorded Confirmed Aspirin Enteric Coated [Aspirin EC] 81 mg PO DAILY 08/31/15 03/21/19 Calcium Carbonate [Calcium] 500 mg PO BID 05/03/16 03/21/19 Ergocalciferol (VITAMIN D2) 800 unit PO DAILY 05/03/16 03/21/19 [Vitamin D] Levothyroxine [Synthroid] 25 mcg PO QAM 06/23/16 03/21/19 Oxybutynin Chloride [Ditropan XL] 10 mg PO HS 06/23/16 03/21/19 Atorvastatin [Lipitor] 40 mg PO HS 02/23/18 03/21/19 Pantoprazole Sodium [Protonix] 40 mg PO DAILY 02/23/18 03/21/19 Amlodipine Besylate 10 mg PO DAILY 12/07/18 03/21/19 Gabapentin [Neurontin] 100 mg PO HS 12/07/18 03/21/19 Lisinopril [Zestril] 40 mg PO HS 12/07/18 03/21/19 Thiamine HCl [Vitamin B-1] 100 mg PO DAILY 12/07/18 03/21/19 raNITIdine HCl [Zantac] 150 mg PO HS 12/07/18 03/21/19 Ferrous Sulfate 325 mg PO DAILY 12/10/18 03/21/19 Metoprolol [Lopressor] 50 mg PO DAILY 03/21/19 03/21/19 Previous Rx's Medication Instructions Recorded Raloxifene [Evista] 60 mg PO DAILY #30 tablet 11/14/16 Docusate [Colace] 100 mg PO BID PRN #60 capsule 01/13/17 Hydrochlorothiazide [Microzide] 12.5 mg PO DAILY #30 capsule 12/09/18 Morphine Sulfate Immed Rel 15 mg PO Q4HR PRN 3 Days #10 tab 03/30/19 [Morphine Sulfate] Naproxen [Naprosyn] 500 mg PO BID #10 tablet 03/30/19 Allergies Allergy/AdvReac Type Severity Reaction Status Date / Time latex Allergy Hives Verified 05/31/19 19:03 All systems ED: reviewed and negative except as stated. 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 Remainder of the gingiva are normal.) - Expanded Head Exam Head exam physicial: Absent: contusion, raccoon eyes - Eye Eye exam: Present: normal appearance, PERRL, EOMI - ENT ENT exam: normal exam, normal oropharynx - Neck Neck exam: Present: normal inspection, full ROM - Chest Chest inspection: Present: normal inspection, symmetric chest wall rise - Respiratory Respiratory exam: Present: normal lung sounds bilaterally. Absent: respiratory distress - Cardiovascular Cardiovascular exam: Present: regular rate, normal rhythm, systolic murmur (3-6 systolic murmur). Absent: rubs, gallop, clicks - Abdominal Exam Abdominal exam: Present: soft, tenderness (Mild tenderness of the periumbilical and epigastric abdomen no right upper quadrant tenderness and no localized tenderness to the lower quadrants or over McBurney's point no shake tenderness or percussion tenderness no palpable or pulsatile Mass. no palpable hernias.), normal bowel sounds - Extremities Exam Extremities exam: Present: normal inspection, full ROM. Absent: tenderness - Back Exam Back exam: Present: normal inspection, full ROM. Absent: tenderness, CVA tenderness (R), CVA tenderness (L) - Neurological Exam Neurological exam: Present: alert, oriented X3, CN II-XII intact. Absent: motor sensory deficit - Psychiatric Psychiatric exam: Present: normal affect, normal mood - Skin Skin exam: Present: warm, dry, intact Course Vital Signs Temperature 97.9 F 05/31/19 19:03 Pulse Rate 100 05/31/19 19:03 Respiratory Rate 22 05/31/19 19:03 Blood Pressure 139/71 05/31/19 19:03 O2 Sat by Pulse Oximetry 97 05/31/19 19:03 Temperature 97.9 F 05/31/19 19:30 Pulse Rate 96 05/31/19 22:02 Respiratory Rate 17 05/31/19 22:02 Blood Pressure 142/50 05/31/19 22:02 O2 Sat by Pulse Oximetry 94 05/31/19 22:02 Oxygen Delivery Oxygen Delivery Room Air Abdominal Pain - MDM Narrative Medical decision making narrative: Patient had an IV placed, she was given IV pain medication IV fluids IV nausea medication with improvement of her symptoms. CBC basic metabolic profile LFTs lipase were all within acceptable limits. Lactic acid was mildly elevated at 3.0. A CT scan of the abdomen and pelvis was ordered. CT scan of the abdomen and pelvis showed findings gastroenteritis, as well as potential developing low-grade small bowel obstruction. I spoke with Dr. Jorge Estrella, with surgery, who recommended admission to the hospitalist service, for observation, with consultation from surgery, seeing as there is no high-grade small bowel obstruction the patient is not actively vomiting, and CT showed possible enteritis and possible developing low-grade small bowel instruction no indication for NG tube sign. I spoke with the hospitalist service who is agreeable to admit this patient. - Lab Data Result diagrams: 05/31/19 19:55 05/31/19 19:55 Lab Results 05/31/19 05/31/19 05/31/19 Range/Units 19:55 19:55 19:55 WBC 10.3 (4.3-11.1) K/mcL RBC 4.79 (3.82-4.97) M/mcL Hgb 13.7 (11.5-15.4) g/dL Hct 41.7 (35.3-44.9) % MCV 87.1 (83.0-100.0) fL MCH 28.6 (28.0-33.3) pg MCHC 32.9 (31.6-35.5) g/dL RDW 12.8 (11.5-14.5) % Plt Count 292 (140-400) K/mcL MPV 10.3 (9.4-12.4) fL Immature Gran % 1.0 (0-4) % Seg Neutrophils % 82.1 % Lymphocytes % 10.4 % Monocytes % 4.7 % Eosinophils % 1.1 % Basophils % 0.7 % Neutrophils # 8.5 (1.6-8.9) K/mcL Lymphocytes # 1.1 (0.6-4.6) K/mcL Monocytes # 0.5 (0.0-1.3) K/mcL Eosinophils # 0.1 (0.0-0.6) K/mcL Basophils # 0.1 (0.0-0.2) K/mcL Sodium 137 (136-145) mEq/L Potassium 4.0 (3.5-5.1) mEq/L Chloride 98 (98-107) mEq/L Carbon Dioxide 26 (23-29) mEq/L BUN 18 (8-23) mg/dL Creatinine 0.87 (0.60-1.20) mg/dL Est GFR ( Amer) > 60 (> 60) Est GFR (Non-Af Amer) > 60 (> 60) BUN/Creatinine Ratio 21 (6-26) Glucose 208 H (70-105) mg/dL Calculated Osmolality 292 (280-300) Lactic Acid 3.0 H (0.5-2.2) mmol/L Calcium 10.4 H (8.6-10.3) mg/dL Total Bilirubin 0.4 (0.3-1.0) mg/dL Direct Bilirubin 0.0 (0.0-0.2) mg/dL Indirect Bilirubin 0.4 (0.0-1.2) mg/dL AST 57 H (13-39) Units/L ALT 37 (7-52) Units/L Alkaline Phosphatase 83 (34-104) Units/L Serum Total Protein 7.6 (6.4-8.9) g/dL Albumin 4.3 (3.5-5.7) g/dL Globulin 3.3 (2.4-3.5) g/dL Albumin/Globulin Ratio 1.3 (1.1-2.2) Lipase 25 (11-82) Units/L Attestation Statement - Attestation Attestation: Patient had an IV placed she was given IV fluids IV pain medication IV nausea medication and IV Pepcid basic laboratory studies were ordered CT scan of the abdomen and pelvis was ordered.
[2019-05-31 20:19] LABS: Basophils # 0.1 K/mcL (0.0-0.2); Basophils % 0.7 %; Eosinophils # 0.1 K/mcL (0.0-0.6); Eosinophils % 1.1 %; Hematocrit 41.7 % (35.3-44.9); Hemoglobin 13.7 g/dL (11.5-15.4); Lymphocytes # 1.1 K/mcL (0.6-4.6); Lymphocytes % 10.4 %; Mean Corpuscular HGB Conc 32.9 g/dL (31.6-35.5); Mean Corpuscular Hemoglobin 28.6 pg (28.0-33.3); Mean Corpuscular Volume 87.1 fL (83.0-100.0); Mean Platelet Volume 10.3 fL (9.4-12.4); Monocytes # 0.5 K/mcL (0.0-1.3); Monocytes % 4.7 %; Neutrophils # 8.5 K/mcL (1.6-8.9); Platelet Count 292 K/mcL (140-400); Red Blood Count 4.79 M/mcL (3.82-4.97); Red Cell Distribution Width 12.8 % (11.5-14.5); Segmented Neutrophils % 82.1 %; White Blood Count 10.3 K/mcL (4.3-11.1)
[2019-05-31 20:42] LABS: Alanine Aminotransferase 37 Units/L (7-52); Albumin 4.3 g/dL (3.5-5.7); Albumin/Globulin Ratio 1.3 (1.1-2.2); Alkaline Phosphatase 83 Units/L (34-104); Aspartate Amino Transferase 57 Units/L (13-39); BUN/Creatinine Ratio 21 (6-26); Bilirubin,Indirect 0.4 mg/dL (0.0-1.2); Bilirubin,Total 0.4 mg/dL (0.3-1.0); Blood Urea Nitrogen 18 mg/dL (8-23); Calcium 10.4 mg/dL (8.6-10.3); Carbon Dioxide 26 mEq/L (23-29); Chloride 98 mEq/L (98-107); Globulin 3.3 g/dL (2.4-3.5); Glucose 208 mg/dL (70-105); Lipase 25 Units/L (11-82); Osmolality,Calculated 292 (280-300); Sodium 137 mEq/L (136-145); Total Protein 7.6 g/dL (6.4-8.9); eGFR For African Americans > 60 (> 60); eGFR For Non-African Americans > 60 (> 60)
[2019-06-01] MEDS ORDERED: Ondansetron ODT 4 MG TAB.RAPDIS SL PRN (00:02)
[2019-06-01] MEDS ORDERED: Naloxone 0.4 MG/ML INJ IVP PRN (00:02)
[2019-06-01] MEDS ORDERED: Ringers Solution, Lactated 1,000 ML IVC SCH (00:15)
[2019-06-01] MEDS ORDERED: D5% in Water 1,000 ML IVC PRN (00:21)
[2019-06-01] MEDS ORDERED: *HR* Dextrose 50 % in Water (Syg) 50 ML SYRINGE IVP PRN (00:21)
[2019-06-01] MEDS ORDERED: Dextrose Gel 15 GM/37.5 ML TUBE PO PRN ×2 (00:21)
--- NOTE | 2019-06-01 00:28 | Internal Med History&Physical ---
Date of Encounter: 06/01/19 Time of Encounter: 00:22 Internal Medicine - H&P: HPI Chief complaint: abdominal pain Admitted From: Home Plans for Post Hospital Care: Home History of present illness: Ms. Bhatti is a 73 year old female with past medical history of hypertension, hyperlipidemia, hypothyroidism, degenerative disc disease, osteoporosis, aortic stenosis, history of cholecystectomy and hysterectomy presented for abdominal pain . [id number] encounter occurred at 10 PM. periumbilical pain occurred suddenly while sitting watching TV, sharp continuous progressively getting worse no alleviating or exacerbating factor associated with nausea and vomiting, no chest pain, shortness of breath diarrhea, dysuria, fever or chills. Reviewed patient's past medical, social, family and surgical history. Patient reports being independent home functional able to do IADL and ADL does not smoke drink or do drugs. Patient came into the ED due to unable to tolerate any oral intake due to abdominal pain with nausea and vomiting. Patient denied association with food intake, travels, raw food intake, or nsaids except aspirin. Patient admitted previous history of SBO and admits to similar presentation. Past Med Surg Social Fam HX - Past Medical History Medical history: arthritis, cancer, cardiomyopathy, GERD, GI bleed, hyperlipidemia, hypertension, kidney stones, liver disease, osteoporosis, renal disease, thyroid disease, valvular heart disease Additional medical history: anal canal cancer Psychiatric history: no psych history - Past Surgical History Surgical History: , cholecystectomy, BRAULIO/BSO, other - Social History Smoking Status: Never smoker Smokeless Tobacco Status: No Alcohol use: none Drug use: none - Family History Father Living Status: Mother Living Status: Hx Family Cardiac Disorders: Yes (HTN) Hx Family Respiratory Disorders: Yes (copd) Hx Family Cancer: Yes (lung) Internal Medicine - H&P: Meds Aspirin Enteric Coated [Aspirin EC] 81 mg PO DAILY 08/31/15 [History] Calcium Carbonate [Calcium] 500 mg PO BID 05/03/16 [History] Ergocalciferol (VITAMIN D2) [Vitamin D] 800 unit PO DAILY 05/03/16 [History] Levothyroxine [Synthroid] 25 mcg PO QAM 06/23/16 [History] Oxybutynin Chloride [Ditropan XL] 10 mg PO HS 06/23/16 [History] Raloxifene [Evista] 60 mg PO DAILY #30 tablet 03/03/17 [Rx] Docusate [Colace] 100 mg PO BID PRN #60 capsule 01/13/17 [Rx] Atorvastatin [Lipitor] 40 mg PO HS 02/23/18 [History] Pantoprazole Sodium [Protonix] 40 mg PO DAILY 02/23/18 [History] Amlodipine Besylate 10 mg PO DAILY 12/07/18 [History] Gabapentin [Neurontin] 100 mg PO HS 12/07/18 [History] Lisinopril [Zestril] 40 mg PO HS 12/07/18 [History] Thiamine HCl [Vitamin B-1] 100 mg PO DAILY 12/07/18 [History] raNITIdine HCl [Zantac] 150 mg PO HS 12/07/18 [History] Hydrochlorothiazide [Microzide] 12.5 mg PO DAILY #30 capsule 12/09/18 [Rx] Ferrous Sulfate 325 mg PO DAILY 12/10/18 [History] Metoprolol [Lopressor] 50 mg PO DAILY 03/21/19 [History] Morphine Sulfate Immed Rel [Morphine Sulfate] 15 mg PO Q4HR PRN 3 Days #10 tab 03/30/19 [Rx] Naproxen [Naprosyn] 500 mg PO BID #10 tablet 03/30/19 [Rx] Allergy/AdvReac Type Severity Reaction Status Date / Time latex Allergy Hives Verified 05/31/19 19:03 All Systems PM: A 10-system review of systems was performed and is negative for pertinent findings except as documented above in the HPI. Review of systems: General: No unintentional weightloss, No fever Head: No headahce, No injury. Ears: No discharge, No earache Eyes: No drainage, No eye pain Mouth and Throat: No new ulcers, No pain Nose and Sinus: No new congestion, No pain, Respiratory: No cough, No sputum production, No dyspnea Cardiovascular: No chest pain, No palpitations. Gastrointestinal: + nausea, + vomiting. + abdominal pain. Genital Tract: No discharge, No pain Urinary Tract: No dysuria, No discharge. MSK: No new/worsening joint pain, No new/worsening muscle ache. Endocrine: No cold intolerance, No polyuria Psychological: No suicidal, No homocidal ideation. - Constitutional Vitals: Temp Pulse Resp BP Pulse Ox 98.7 F 95 20 153/74 98 05/31/19 22:35 05/31/19 22:35 05/31/19 22:35 05/31/19 22:35 05/31/19 22:35 Exam: General Appearance: Appearing as age, well-nourished in mild acute distress. Head: Atraumatic normocephalic Skin: Normal texture, normal turgor, warm, dry. dry mucous membranes Eyes: Conjunctivae not pale with no erythema, drainage, or ulcers. Anicteric. Neck: No Lymphadenopathy in the anterior/posterior cervical chain. No thyromegaly, masses or ulcers. Trachea midline. Heart: RRR, grade 3 systolic murmurs. Capillary refill 5 seconds Lungs: No accessory muscle usage, lungs clear to auscultation bilaterally, no wheezes or crackles. Extremities: No pitting edema, No clubbing, No cyanosis. Abdomen: distended, normoactive bowel sounds. minimal tenderness to palpation, no hepatomegally. No guarding. Neuro: AOx3 with no new sensory loss or focal deficits. MSK: Strength 5/5 Upper extremity equal bilaterally. Strength 5/5 Lower extremity equal bilaterally Internal Med - H&P Results - Labs CBC & Chem 7: 06/01/19 00:37 06/01/19 00:37 Labs: Short CBC 05/31/19 Range/Units 19:55 WBC 10.3 (4.3-11.1) K/mcL Hgb 13.7 (11.5-15.4) g/dL Hct 41.7 (35.3-44.9) % Plt Count 292 (140-400) K/mcL Neutrophils # 8.5 (1.6-8.9) K/mcL BMP 05/31/19 19:55 Sodium 137 Potassium 4.0 Chloride 98 Carbon Dioxide 26 BUN 18 Creatinine 0.87 Glucose 208 H Calcium 10.4 H Liver Function 05/31/19 Range/Units 19:55 Total Bilirubin 0.4 (0.3-1.0) mg/dL Direct Bilirubin 0.0 (0.0-0.2) mg/dL AST 57 H (13-39) Units/L ALT 37 (7-52) Units/L Alkaline Phosphatase 83 (34-104) Units/L Albumin 4.3 (3.5-5.7) g/dL - Impressions ITS Impressions Abdomen/Pelvis CT 05/31/19 20:27 IMPRESSION: 1. There are some fluid-filled mildly dilated loops of ileum in the lower abdomen pelvis with a gentle transition to normal caliber very distal ileum. There is also liquid stool throughout most of the colon, worst in the right colon. Findings may represent an enterocolitis or load developing low grade small bowel obstruction. Clinical correlation and close follow-up advised. 2. Hepatic steatosis. D/ / Lei Kovacs MD / Lei Kovacs MD Interpreting Provider: Lei Kovacs MD - Summary of Assessment and Plan Summary of Assessment and Plan: 1.Short bowel obstruction: suspected mulitfactorial abdominal adhesion due to history of hysterectomy/cholecystectomy exacerbated with opiate intake, age. Last colonoscopy in July showed no acute masses however patient does report history of anal cancer status post radiation and chemotherapy. Surgery consultation, nothing by mouth past midnight. Continue conservative management and advance diet as tolerated. 2.severe dehydration: lactic acid elevated. secondary to low oral intake, Unable to tolerate oral due to nausea and vomiting. Zofran ordered with IVF rehydration. Advance diet to clear liquid if able to tolerate 3.Hyperglycemia: A1c pending. Insulin sliding scale with meals. 4.Hypercalcemia: Dehydration, elevated albumin, and takes Ca-carbonate daily. Hydration and recheck. Chronic medical disease: Hypertension continue medication. Held hydrochlorothiazide Hyperlipidemia: Continue home and Iron deficiency anemia: Held due to worsening nausea. DVT prophylaxis: Heparin Disposition: Likely less than 2 day stay - Time Spent With Patient Total time spent is greater than 37 minutes 50% in coordination of care (as documented) at patient's floor/unit and/or counseling patient: Greater than 35 minutes
[2019-06-01] MEDS ORDERED: Ringers Solution, Lactated 1,000 ML IVC ONE (00:32)
[2019-06-01 01:14] LABS: Basophils % 0.4 %; Eosinophils % 0.2 %; Hematocrit 37.3 % (35.3-44.9); Immature Granulocytes % 0.9 % (0-4); Lymphocytes # 1.3 K/mcL (0.6-4.6); Lymphocytes % 14.1 %; Mean Corpuscular HGB Conc 32.4 g/dL (31.6-35.5); Mean Corpuscular Hemoglobin 28.7 pg (28.0-33.3); Mean Corpuscular Volume 88.6 fL (83.0-100.0); Mean Platelet Volume 10.7 fL (9.4-12.4); Monocytes # 0.5 K/mcL (0.0-1.3); Monocytes % 4.9 %; Neutrophils # 7.4 K/mcL (1.6-8.9); Platelet Count 247 K/mcL (140-400); Red Blood Count 4.21 M/mcL (3.82-4.97); Segmented Neutrophils % 79.5 %; White Blood Count 9.3 K/mcL (4.3-11.1)
[2019-06-01 01:18] LABS: Hemoglobin 12.1 g/dL (11.5-15.4)
[2019-06-01 01:22] LABS: INR 1.1; Prothrombin Time 12.5 Seconds (9.4-12.1)
[2019-06-01 01:35] LABS: Alanine Aminotransferase 51 Units/L (7-52); Albumin 3.6 g/dL (3.5-5.7); Albumin/Globulin Ratio 1.3 (1.1-2.2); Alkaline Phosphatase 90 Units/L (34-104); Aspartate Amino Transferase 111 Units/L (13-39); BUN/Creatinine Ratio 21 (6-26); Bilirubin,Total 0.4 mg/dL (0.3-1.0); Blood Urea Nitrogen 18 mg/dL (8-23); Calcium 8.6 mg/dL (8.6-10.3); Carbon Dioxide 23 mEq/L (23-29); Chloride 104 mEq/L (98-107); Chol/HDL Ratio 3.6 (0-4.9); Cholesterol 119 mg/dL (< 200); Globulin 2.8 g/dL (2.4-3.5); Glucose 157 mg/dL (70-105); HDL Cholesterol 33 mg/dL (40-59); LDL Cholesterol,Calculated 48 mg/dL (0-99); Magnesium 1.5 mg/dL (1.6-2.6); Osmolality,Calculated 291 (280-300); Phosphorous 3.8 mg/dL (2.7-4.5); Potassium 3.9 mEq/L (3.5-5.1); Sodium 138 mEq/L (136-145); Total Protein 6.4 g/dL (6.4-8.9); Triglycerides 190 mg/dL (< 150); eGFR For African Americans > 60 (> 60); eGFR For Non-African Americans > 60 (> 60)
--- NOTE | 2019-06-01 02:21 | AcuteCare Surgery Consult Note ---
Date of Encounter: 06/01/19 Time of Encounter: 02:00 Assessment and Plan (1) Partial small bowel obstruction Current Visit: Yes Status: Acute Resolved. Start full liquid diet and advance to regular as tolerated. No indications for surgery. F/U prn. Surgery signing off. History of Present Illness Reason for consult: abdominal pain Requesting physician: Melissa Sepulveda History of present illness: Patient presents to [facility] emergency Department with chief complaint of epigastric and periumbilical abdominal pain. The patient states that she has been recently treated for kidney stones by ther urologist. She reports postprandial periumbilical abdominal pain and epigastric pain associated with nausea and vomiting. She denies actual loose stool or diarrhea but reports she has had increased amounts of stool since this morning. She states that she has had no black or bloody stool but her stool is always a little bit dark from iron. She has not tried taking anything for her symptoms she does have a history of heartburn and gastritis in the past but feels like this is somewhat different she denies back pain or flank pain or urinary changes and states this does not feel like her prior kidney stones. She denies headache neck pain chest pain or shortness of breath. She denies palpitations. She denies pain into her back. Nothing really makes her worse or better but again she has not tried taking anything. Patient denies any recent travel, she states that she was recently placed on antibiotic for a gum infection, however got diarrhea after one day of amoxicillin so she stopped taking that and her diarrhea had resolved. Past Med Surg Social Fam HX - Past Medical History Medical history: arthritis, cancer, cardiomyopathy, GERD, GI bleed, hyperlipidemia, hypertension, kidney stones, liver disease, osteoporosis, renal disease, thyroid disease, valvular heart disease Additional medical history: anal canal cancer Psychiatric history: no psych history - Past Surgical History Surgical History: , cholecystectomy, BRAULIO/BSO, other - Social History Smoking Status: Never smoker Smokeless Tobacco Status: No Alcohol use: none Drug use: none - Family History Father Living Status: Mother Living Status: Hx Family Cardiac Disorders: Yes (HTN) Hx Family Respiratory Disorders: Yes (copd) Hx Family Cancer: Yes (lung) Medications and Allergies Aspirin Enteric Coated [Aspirin EC] 81 mg PO DAILY 08/31/15 [History] Calcium Carbonate [Calcium] 500 mg PO BID 05/03/16 [History] Ergocalciferol (VITAMIN D2) [Vitamin D] 800 unit PO DAILY 05/03/16 [History] Levothyroxine [Synthroid] 25 mcg PO QAM 06/23/16 [History] Oxybutynin Chloride [Ditropan XL] 10 mg PO HS 06/23/16 [History] Raloxifene [Evista] 60 mg PO DAILY #30 tablet 11/14/16 [Rx] Docusate [Colace] 100 mg PO BID PRN #60 capsule 01/13/17 [Rx] Atorvastatin [Lipitor] 40 mg PO HS 02/23/18 [History] Amlodipine Besylate 10 mg PO DAILY 12/07/18 [History] Gabapentin [Neurontin] 100 mg PO HS 12/07/18 [History] Lisinopril [Zestril] 40 mg PO HS 12/07/18 [History] raNITIdine HCl [Zantac] 150 mg PO HS 12/07/18 [History] Hydrochlorothiazide [Microzide] 12.5 mg PO DAILY #30 capsule 12/09/18 [Rx] Ferrous Sulfate 325 mg PO DAILY 12/10/18 [History] Cetirizine HCl [Zyrtec] 10 mg PO DAILY 06/01/19 [History] Cyanocobalamin (Vitamin B-12) [Vitamin B-12] 1,000 mcg PO DAILY 06/01/19 [History] Metoprolol Succinate [Toprol Xl] 50 mg PO DAILY 06/01/19 [History] Allergy/AdvReac Type Severity Reaction Status Date / Time latex Allergy Hives Verified 05/31/19 19:03 Review of Systems All systems PM: The remainder of the systems were reviewed and are negative - Constitutional no anorexia, no chills, no fatigue, no fever(s), no night sweats, no weakness - EENT Nose, mouth and throat: no dizziness, no dry mouth, no dysphagia, no nasal congestion, no nasal discharge, no sinus pain, no sinus pressure, no sore throat - Cardiovascular no chest pain, no diaphoresis, no dyspnea, no edema - Respiratory no cough, no dyspnea, no wheezing - Gastrointestinal abdominal pain (improved), diarrhea, heartburn, no belching, no bloating, no coffee ground emesis, no constipation, no nausea, no vomiting - Musculoskeletal back pain, no joint swelling, no limited range of motion, no neck pain - Neurological weakness, no abnormal gait, no confusion, no dizziness, no focal weakness - Psychiatric no anxiety, no depression - Endocrine no fatigue - Hematologic/Lymphatic no easy bleeding, no easy bruising General Surgery Exam Initial Vital Signs Temp Pulse Resp BP Pulse Ox 97.9 F 100 22 139/71 97 05/31/19 19:03 05/31/19 19:03 05/31/19 19:03 05/31/19 19:03 05/31/19 19:03 - General physical appearance well developed, well nourished, no distress, no pain - Eyes PERRL, normal ocular movement. negative: icteric - ENT no congestion, nasal discharge, dry mucosa - Neck no masses, trachea midline, no lymphadectomy, no venous distension - Respiratory normal respiratory effort, clear to auscultation - Cardiovascular Cardiovascular exam: Present: RRR. Absent: JVD - Abdomen Abdomen general surgery: Present: bowel sounds present, soft, non tender, distended - Genitourinary Present: normal external genitalia - Integumentary Integumentary general surgery: Present: warm and dry - Neurologic Present: CN 2-12 grossly intact, normal coordination - Musculoskeletal Present: normal posture - Psychiatric Psychiatric general surgery: Present: A&Ox3, appropriate Exam Initial Vital Signs Temp Pulse Resp BP Pulse Ox 97.9 F 100 22 139/71 97 05/31/19 19:03 05/31/19 19:03 05/31/19 19:03 05/31/19 19:03 05/31/19 19:03 Results - Labs 06/01/19 00:37 06/01/19 00:37 Abnormal lab results PT 12.5 Seconds (9.4-12.1) H 06/01/19 00:37 Glucose 157 mg/dL (70-105) H 06/01/19 00:37 Lactic Acid 2.8 mmol/L (0.5-2.2) H 05/31/19 23:56 Calcium 10.4 mg/dL (8.6-10.3) H 05/31/19 19:55 Magnesium 1.5 mg/dL (1.6-2.6) L 06/01/19 00:37 AST 111 Units/L (13-39) H 06/01/19 00:37 Triglycerides 190 mg/dL (< 150) H 06/01/19 00:37 VLDL Cholesterol, Calc 38 mg/dL (< 31) H 06/01/19 00:37 HDL Cholesterol 33 mg/dL (40-59) L 06/01/19 00:37 Diabetes panel 05/31/19 06/01/19 Range/Units 19:55 00:37 Sodium 137 138 (136-145) mEq/L Potassium 4.0 3.9 (3.5-5.1) mEq/L Chloride 98 104 (98-107) mEq/L Carbon Dioxide 26 23 (23-29) mEq/L BUN 18 18 (8-23) mg/dL Creatinine 0.87 0.85 (0.60-1.20) mg/dL Glucose 208 H 157 H (70-105) mg/dL Calcium 10.4 H 8.6 (8.6-10.3) mg/dL AST 57 H 111 H (13-39) Units/L ALT 37 51 (7-52) Units/L Alkaline Phosphatase 83 90 (34-104) Units/L Albumin 4.3 3.6 (3.5-5.7) g/dL Triglycerides 190 H (< 150) mg/dL HDL Cholesterol 33 L (40-59) mg/dL Calcium panel 05/31/19 06/01/19 Range/Units 19:55 00:37 Calcium 10.4 H 8.6 (8.6-10.3) mg/dL Phosphorus 3.8 (2.7-4.5) mg/dL Albumin 4.3 3.6 (3.5-5.7) g/dL Pituitary panel 05/31/19 06/01/19 Range/Units 19:55 00:37 Sodium 137 138 (136-145) mEq/L Potassium 4.0 3.9 (3.5-5.1) mEq/L Chloride 98 104 (98-107) mEq/L Carbon Dioxide 26 23 (23-29) mEq/L BUN 18 18 (8-23) mg/dL Creatinine 0.87 0.85 (0.60-1.20) mg/dL Glucose 208 H 157 H (70-105) mg/dL Calcium 10.4 H 8.6 (8.6-10.3) mg/dL Adrenal panel 09/17/19 09/18/19 Range/Units 19:55 00:37 Sodium 137 138 (136-145) mEq/L Potassium 4.0 3.9 (3.5-5.1) mEq/L Chloride 98 104 (98-107) mEq/L Carbon Dioxide 26 23 (23-29) mEq/L BUN 18 18 (8-23) mg/dL Creatinine 0.87 0.85 (0.60-1.20) mg/dL Glucose 208 H 157 H (70-105) mg/dL Calcium 10.4 H 8.6 (8.6-10.3) mg/dL Total Bilirubin 0.4 0.4 (0.3-1.0) mg/dL AST 57 H 111 H (13-39) Units/L ALT 37 51 (7-52) Units/L Alkaline Phosphatase 83 90 (34-104) Units/L Albumin 4.3 3.6 (3.5-5.7) g/dL All other labs normal. - Imaging CT scan - abdomen: image reviewed (There are some fluid-filled mildly dilated loops of ileum in the lower abdomen pelvis with a gentle transition to normal caliber very distal ileum. There is also liquid stool throughout most of the colon, worst in the right colon. Findings may represent an enterocolitis or load developing low grade small bowel obstruction.) CT scan - pelvis: image reviewed Consult Discharge Plan - Plan Referrals: Vandana Cerna DO [Primary Care Provider] -
--- NOTE | 2019-06-01 02:56 | AcuteCare Surgery Consult Note ---
Date of Encounter: 06/01/19 Time of Encounter: 02:00 Past Med Surg Social Fam HX - Past Medical History Medical history: arthritis, cancer, cardiomyopathy, GERD, GI bleed, hyperlipidemia, hypertension, kidney stones, liver disease, osteoporosis, renal disease, thyroid disease, valvular heart disease Additional medical history: anal canal cancer Psychiatric history: no psych history - Past Surgical History Surgical History: , cholecystectomy, BRAULIO/BSO, other - Social History Smoking Status: Never smoker Smokeless Tobacco Status: No Alcohol use: none Drug use: none - Family History Father Living Status: Mother Living Status: Hx Family Cardiac Disorders: Yes (HTN) Hx Family Respiratory Disorders: Yes (copd) Hx Family Cancer: Yes (lung) Medications and Allergies Aspirin Enteric Coated [Aspirin EC] 81 mg PO DAILY 08/31/15 [History] Calcium Carbonate [Calcium] 500 mg PO BID 05/03/16 [History] Ergocalciferol (VITAMIN D2) [Vitamin D] 800 unit PO DAILY 05/03/16 [History] Levothyroxine [Synthroid] 25 mcg PO QAM 06/23/16 [History] Oxybutynin Chloride [Ditropan XL] 10 mg PO HS 06/23/16 [History] Raloxifene [Evista] 60 mg PO DAILY #30 tablet 11/14/16 [Rx] Docusate [Colace] 100 mg PO BID PRN #60 capsule 01/13/17 [Rx] Atorvastatin [Lipitor] 40 mg PO HS 02/23/18 [History] Pantoprazole Sodium [Protonix] 40 mg PO DAILY 02/23/18 [History] Amlodipine Besylate 10 mg PO DAILY 12/07/18 [History] Gabapentin [Neurontin] 100 mg PO HS 12/07/18 [History] Lisinopril [Zestril] 40 mg PO HS 12/07/18 [History] Thiamine HCl [Vitamin B-1] 100 mg PO DAILY 12/07/18 [History] raNITIdine HCl [Zantac] 150 mg PO HS 12/07/18 [History] Hydrochlorothiazide [Microzide] 12.5 mg PO DAILY #30 capsule 12/09/18 [Rx] Ferrous Sulfate 325 mg PO DAILY 12/10/18 [History] Metoprolol [Lopressor] 50 mg PO DAILY 03/21/19 [History] Morphine Sulfate Immed Rel [Morphine Sulfate] 15 mg PO Q4HR PRN 3 Days #10 tab 03/30/19 [Rx] Naproxen [Naprosyn] 500 mg PO BID #10 tablet 03/30/19 [Rx] Allergy/AdvReac Type Severity Reaction Status Date / Time latex Allergy Hives Verified 05/31/19 19:03 Review of Systems All systems PM: The remainder of the systems were reviewed and are negative General Surgery Exam Initial Vital Signs Temp Pulse Resp BP Pulse Ox 97.9 F 100 22 139/71 97 05/31/19 19:03 05/31/19 19:03 05/31/19 19:03 05/31/19 19:03 05/31/19 19:03 Exam Initial Vital Signs Temp Pulse Resp BP Pulse Ox 97.9 F 100 22 139/71 97 05/31/19 19:03 05/31/19 19:03 05/31/19 19:03 05/31/19 19:03 05/31/19 19:03 Results - Labs 06/01/19 00:37 06/01/19 00:37 Abnormal lab results PT 12.5 Seconds (9.4-12.1) H 06/01/19 00:37 Glucose 157 mg/dL (70-105) H 06/01/19 00:37 Lactic Acid 2.8 mmol/L (0.5-2.2) H 05/31/19 23:56 Calcium 10.4 mg/dL (8.6-10.3) H 05/31/19 19:55 Magnesium 1.5 mg/dL (1.6-2.6) L 06/01/19 00:37 AST 111 Units/L (13-39) H 06/01/19 00:37 Triglycerides 190 mg/dL (< 150) H 06/01/19 00:37 VLDL Cholesterol, Calc 38 mg/dL (< 31) H 06/01/19 00:37 HDL Cholesterol 33 mg/dL (40-59) L 06/01/19 00:37 Diabetes panel 05/31/19 06/01/19 Range/Units 19:55 00:37 Sodium 137 138 (136-145) mEq/L Potassium 4.0 3.9 (3.5-5.1) mEq/L Chloride 98 104 (98-107) mEq/L Carbon Dioxide 26 23 (23-29) mEq/L BUN 18 18 (8-23) mg/dL Creatinine 0.87 0.85 (0.60-1.20) mg/dL Glucose 208 H 157 H (70-105) mg/dL Calcium 10.4 H 8.6 (8.6-10.3) mg/dL AST 57 H 111 H (13-39) Units/L ALT 37 51 (7-52) Units/L Alkaline Phosphatase 83 90 (34-104) Units/L Albumin 4.3 3.6 (3.5-5.7) g/dL Triglycerides 190 H (< 150) mg/dL HDL Cholesterol 33 L (40-59) mg/dL Calcium panel 05/31/19 06/01/19 Range/Units 19:55 00:37 Calcium 10.4 H 8.6 (8.6-10.3) mg/dL Phosphorus 3.8 (2.7-4.5) mg/dL Albumin 4.3 3.6 (3.5-5.7) g/dL Pituitary panel 05/31/19 06/01/19 Range/Units 19:55 00:37 Sodium 137 138 (136-145) mEq/L Potassium 4.0 3.9 (3.5-5.1) mEq/L Chloride 98 104 (98-107) mEq/L Carbon Dioxide 26 23 (23-29) mEq/L BUN 18 18 (8-23) mg/dL Creatinine 0.87 0.85 (0.60-1.20) mg/dL Glucose 208 H 157 H (70-105) mg/dL Calcium 10.4 H 8.6 (8.6-10.3) mg/dL Adrenal panel 05/31/19 06/01/19 Range/Units 19:55 00:37 Sodium 137 138 (136-145) mEq/L Potassium 4.0 3.9 (3.5-5.1) mEq/L Chloride 98 104 (98-107) mEq/L Carbon Dioxide 26 23 (23-29) mEq/L BUN 18 18 (8-23) mg/dL Creatinine 0.87 0.85 (0.60-1.20) mg/dL Glucose 208 H 157 H (70-105) mg/dL Calcium 10.4 H 8.6 (8.6-10.3) mg/dL Total Bilirubin 0.4 0.4 (0.3-1.0) mg/dL AST 57 H 111 H (13-39) Units/L ALT 37 51 (7-52) Units/L Alkaline Phosphatase 83 90 (34-104) Units/L Albumin 4.3 3.6 (3.5-5.7) g/dL All other labs normal. Consult Discharge Plan - Plan Referrals: Vandana Cerna DO [Primary Care Provider] -
[2019-06-01] MEDS: Levothyroxine 25 MCG TABLET PO SCH (05:27)
[2019-06-01] MEDS: *HR* Heparin 5,000 UNIT/ML VIAL SQ SCH ×3 (05:27→20:30)
[2019-06-01] MEDS: Insulin LISPRO 300 UNITS/3 ML VIAL SQ SCH ×3 (08:17→18:06)
[2019-06-01 08:43] LABS: Estimated Average Glucose 197 mg/dl
[2019-06-01] MEDS: Aspirin Enteric Coated 81 MG Tablet PO SCH (10:19)
[2019-06-01] MEDS: amLODIPine 5 MG TABLET PO SCH (10:19)
--- NOTE | 2019-06-01 17:26 | Internal Med Progress Note ---
Hospitalist Progress Note - Encounter Date of Encounter: 06/01/19 Time of Encounter: 09:25 - Subjective Interval History: Pt seen and examined. She states that her abdominal pain is improving. She denies nausea, vomiting and constipation. - Exam Vitals: Temp Pulse Resp BP Pulse Ox 36.6 C 96 15 164/67 96 06/01/19 14:09 06/01/19 14:09 06/01/19 14:09 06/01/19 14:09 06/01/19 14:09 Exam: General Appearance: Appearing as age, well-nourished in no acute distress. Head: Atraumatic normocephalic Skin: Normal texture, normal turgor, warm, dry. dry mucous membranes Eyes: Conjunctivae not pale with no erythema, drainage, or ulcers. Anicteric. Neck: No Lymphadenopathy in the anterior/posterior cervical chain. No thyromegaly, masses or ulcers. Trachea midline. Heart: RRR, grade 3 systolic murmurs. Capillary refill 5 seconds Lungs: No accessory muscle usage, lungs clear to auscultation bilaterally, no wheezes or crackles. Extremities: No pitting edema, No clubbing, No cyanosis. Abdomen: Soft, nontender, normal BS. Neuro: AOx3 with no new sensory loss or focal deficits. MSK: Strength 5/5 Upper extremity equal bilaterally. Strength 5/5 Lower extremity equal bilaterally - Assessment and Plan (1) Diabetes mellitus, new onset Current Visit: Yes Status: Acute Assessment and Plan: Patient's hemoglobin A1c is 8.5. From her chart she has previously had elevated blood glucose on admission. Patient now willing to go on any form of injection. We will start her on metformin and communicate with her outpatient doctor. Continue Accu-Chek Insulin sliding scale (2) Enteritis Current Visit: Yes Status: Acute Assessment and Plan: Patient says abdominal pain is improving. Has been reviewed by surgery who do not think surgery is indicated at this point. Patient will be started on a full liquid diet to advised to regular diet as tolerated. For possible discharge tomorrow if symptoms fully resolve. (3) Acute abdominal pain Current Visit: No Status: Acute Assessment and Plan: Pain resolving. Continue to monitor. (4) HLD (hyperlipidemia) Current Visit: No Status: Chronic Assessment and Plan: Continue home meds. (5) Hypertension Current Visit: No Status: Chronic Assessment and Plan: Continue home meds. DVT Prophylaxis: Subcutaneous heparin. - Time Spent with Patient Total time spent is greater than 50% in coordination of care (as documented) at patient's floor/unit and/or counseling patient: Internal Medicine: Result - Labs CBC & Chem 7: 06/01/19 00:37 06/01/19 00:37 Labs: Short CBC 05/31/19 06/01/19 Range/Units 19:55 00:37 WBC 10.3 9.3 (4.3-11.1) K/mcL Hgb 13.7 12.1 D (11.5-15.4) g/dL Hct 41.7 37.3 (35.3-44.9) % Plt Count 292 247 (140-400) K/mcL Neutrophils # 8.5 7.4 (1.6-8.9) K/mcL BMP 05/31/19 06/01/19 19:55 00:37 Sodium 137 138 Potassium 4.0 3.9 Chloride 98 104 Carbon Dioxide 26 23 BUN 18 18 Creatinine 0.87 0.85 Glucose 208 H 157 H Calcium 10.4 H 8.6 Cardiac Enzymes 06/01/19 06/01/19 Range/Units 00:37 06:07 Troponin I 0.03 < 0.03 (< 0.04) ng/mL Liver Function 05/31/19 06/01/19 Range/Units 19:55 00:37 Total Bilirubin 0.4 0.4 (0.3-1.0) mg/dL Direct Bilirubin 0.0 (0.0-0.2) mg/dL AST 57 H 111 H (13-39) Units/L ALT 37 51 (7-52) Units/L Alkaline Phosphatase 83 90 (34-104) Units/L Albumin 4.3 3.6 (3.5-5.7) g/dL - ABG Interpretation ABG results: PT/INR, D-dimer PT 12.5 Seconds (9.4-12.1) H 06/01/19 00:37 - Impressions Impressions Abdomen/Pelvis CT 05/31/19 20:27 IMPRESSION: 1. There are some fluid-filled mildly dilated loops of ileum in the lower abdomen pelvis with a gentle transition to normal caliber very distal ileum. There is also liquid stool throughout most of the colon, worst in the right colon. Findings may represent an enterocolitis or load developing low grade small bowel obstruction. Clinical correlation and close follow-up advised. 2. Hepatic steatosis. D/ / Lei Kovacs MD / Lei Kovacs MD Interpreting Provider: Lei Kovacs MD Consult Discharge Plan - Plan Referrals: Vandana Cerna DO [Primary Care Provider] - (4) HLD (hyperlipidemia) Qualifiers: Hyperlipidemia type: unspecified Qualified Code(s): E78.5 - Hyperlipidemia, unspecified (5) Hypertension Qualifiers: Hypertension type: essential hypertension Qualified Code(s): I10 - Essential (primary) hypertension
[2019-06-01] MEDS ORDERED: Famotidine 20 MG TABLET PO SCH (21:00)
[2019-06-01] MEDS ORDERED: Lisinopril 20 MG TABLET PO SCH (21:00)
[2019-06-01] MEDS ORDERED: Gabapentin 100 MG CAPSULE PO SCH (21:00)
[2019-06-02 00:54] LABS: Bilirubin,Urine Negative (Negative); Blood,Urine Negative (Negative); Clarity,Urine Clear (Clear); Color,Urine Yellow (Yellow); Glucose,Urine (UA) Normal (Normal); Ketones,Urine Negative (Negative); Leukocyte Esterase,Urine Trace (Negative); Nitrite,Urine Negative (Negative); Protein,Urine Negative (Neg-Trace); Specific Gravity,Urine 1.012 (1.010-1.025); Urobilinogen,Urine Normal (Normal)
[2019-06-02 00:55] LABS: Bacteria,Urine None Seen per hpf (None-Few); Hyaline Casts,Urine None Seen per lpf (None-Few); RBC,Urine 0-3 per hpf (0-3); Squamous Epithelial Cell,Urine Moderate per lpf (None-Few)
[2019-06-02] MEDS: Levothyroxine 25 MCG TABLET PO SCH (05:53)
[2019-06-02] MEDS: *HR* Heparin 5,000 UNIT/ML VIAL SQ SCH ×2 (05:53→14:01)
[2019-06-02 06:43] LABS: Basophils # 0.1 K/mcL (0.0-0.2); Basophils % 1.3 %; Eosinophils # 0.3 K/mcL (0.0-0.6); Eosinophils % 5.1 %; Hematocrit 35.5 % (35.3-44.9); Hemoglobin 11.7 g/dL (11.5-15.4); Immature Granulocytes % 1.4 % (0-4); Lymphocytes # 1.7 K/mcL (0.6-4.6); Lymphocytes % 31.2 %; Mean Corpuscular Hemoglobin 28.7 pg (28.0-33.3); Mean Corpuscular Volume 87.2 fL (83.0-100.0); Monocytes # 0.4 K/mcL (0.0-1.3); Monocytes % 7.4 %; Platelet Count 252 K/mcL (140-400); Red Blood Count 4.07 M/mcL (3.82-4.97); Red Cell Distribution Width 12.9 % (11.5-14.5); Segmented Neutrophils % 53.6 %; White Blood Count 5.5 K/mcL (4.3-11.1)
[2019-06-02 07:01] LABS: BUN/Creatinine Ratio 15 (6-26); Blood Urea Nitrogen 10 mg/dL (8-23); Calcium 8.3 mg/dL (8.6-10.3); Carbon Dioxide 26 mEq/L (23-29); Chloride 104 mEq/L (98-107); Glucose 154 mg/dL (70-105); Osmolality,Calculated 288 (280-300); Sodium 138 mEq/L (136-145); eGFR For African Americans > 60 (> 60); eGFR For Non-African Americans > 60 (> 60)
[2019-06-02] MEDS: Aspirin Enteric Coated 81 MG Tablet PO SCH (08:18)
[2019-06-02] MEDS: amLODIPine 5 MG TABLET PO SCH (08:19)
[2019-06-02] MEDS: Insulin LISPRO 300 UNITS/3 ML VIAL SQ SCH ×2 (08:20→11:31)
[2019-06-02] MEDS ORDERED: Loratadine 10 MG TABLET PO SCH (09:00)
[2019-06-02] MEDS ORDERED: Cyanocobalamin (B-12) 1,000 MCG TABLET PO SCH (09:00)
[2019-06-02] MEDS ORDERED: Metoprolol XL (24 HR) Succ 50 MG TAB.ER.24H PO SCH (09:00)
[2019-06-02 10:24] VITALS: BP 121/63
--- NOTE | 2019-06-02 11:44 | Discharge Summary ---
- NOTES TO OUTPATIENT PROVIDER Notes to Outpatient Provider: Patient's A1c was 8.5. She states that she has been told in the past that her BG was high. Starting her on metformin for now. Uncomfortable with sulfonylurea since she is elderly. She seems not ready to accept the dietary and lifestyle modifications that comewith the diagnosis and will need more counseling. Thank you Orders not resulted at time of discharge: Pending orders 06/02/19 00:44 Culture,Urine [RM] Stat Date of Encounter: 06/02/19 Time of Encounter: 08:40 - Discharge Diagnosis (1) Diabetes mellitus, new onset Priority: Primary Status: Acute (2) Enteritis Priority: Secondary Status: Acute (3) Acute abdominal pain Priority: Secondary Status: Acute (4) HLD (hyperlipidemia) Priority: Secondary Status: Chronic Qualifiers: Hyperlipidemia type: unspecified Qualified Code(s): E78.5 - Hyperlipidemia, unspecified (5) Hypertension Priority: Secondary Status: Chronic Qualifiers: Hypertension type: essential hypertension Qualified Code(s): I10 - Essential (primary) hypertension Hospital course: Ms. Bhatti is a 73 year old f the past medical history of hypertension, hyperlipidemia and CAD who presented with abdominal pain concerning for possible small bowel obstruction. Patient's symptoms however resolved spontaneously during hospital admission. Her blood glucose levels were found to be elevated and A1c done came out as 8.5%. Patient has been informed that she is a newly diagnosed diabetic and needs to modify her lifestyle and diet accordingly. Even though she seems uncomfortable with the idea of changing her lifestyle she is willing to start metformin at the moment. She will need to follow-up with her PCP for further management of her diabetes. Discharge discussed with: patient, nurse, social work, case management - Time Spent with Patient Total time spent providing and/or coordinating discharge services: Time spent: Greater than 30 minutes (50minutes) - Discharge Medications Prescriptions: Continued Aspirin Enteric Coated [Aspirin EC] 81 mg PO DAILY Ergocalciferol (VITAMIN D2) [Vitamin D] 800 unit PO DAILY Calcium Carbonate [Calcium] 500 mg PO BID Levothyroxine [Synthroid] 25 mcg PO QAM Oxybutynin Chloride [Ditropan XL] 10 mg PO HS Raloxifene [Evista] 60 mg PO DAILY #30 tablet Docusate [Colace] 100 mg PO BID PRN #60 capsule PRN Reason: Constipation Atorvastatin [Lipitor] 40 mg PO HS Amlodipine Besylate 10 mg PO DAILY Gabapentin [Neurontin] 100 mg PO HS Lisinopril [Zestril] 40 mg PO HS raNITIdine HCl [Zantac] 150 mg PO HS Hydrochlorothiazide [Microzide] 12.5 mg PO DAILY #30 capsule Ferrous Sulfate 325 mg PO DAILY Cetirizine HCl [Zyrtec] 10 mg PO DAILY Cyanocobalamin (Vitamin B-12) [Vitamin B-12] 1,000 mcg PO DAILY Metoprolol Succinate [Toprol Xl] 50 mg PO DAILY Home Medications: Aspirin Enteric Coated [Aspirin EC] 81 mg PO DAILY 08/31/15 [History] Calcium Carbonate [Calcium] 500 mg PO BID 05/03/16 [History] Ergocalciferol (VITAMIN D2) [Vitamin D] 800 unit PO DAILY 05/03/16 [History] Levothyroxine [Synthroid] 25 mcg PO QAM 06/23/16 [History] Oxybutynin Chloride [Ditropan XL] 10 mg PO HS 06/23/16 [History] Raloxifene [Evista] 60 mg PO DAILY #30 tablet 11/14/16 [Rx] Docusate [Colace] 100 mg PO BID PRN #60 capsule 01/13/17 [Rx] Atorvastatin [Lipitor] 40 mg PO HS 02/23/18 [History] Amlodipine Besylate 10 mg PO DAILY 12/07/18 [History] Gabapentin [Neurontin] 100 mg PO HS 12/07/18 [History] Lisinopril [Zestril] 40 mg PO HS 12/07/18 [History] raNITIdine HCl [Zantac] 150 mg PO HS 12/07/18 [History] Hydrochlorothiazide [Microzide] 12.5 mg PO DAILY #30 capsule 12/09/18 [Rx] Ferrous Sulfate 325 mg PO DAILY 12/10/18 [History] Cetirizine HCl [Zyrtec] 10 mg PO DAILY 06/01/19 [History] Cyanocobalamin (Vitamin B-12) [Vitamin B-12] 1,000 mcg PO DAILY 06/01/19 [History] Metoprolol Succinate [Toprol Xl] 50 mg PO DAILY 06/01/19 [History] metFORMIN [Glucophage] 500 mg PO BIDWM #60 tablet 06/02/19 [Rx] Allergies/Adverse Reactions: Allergy/AdvReac Type Severity Reaction Status Date / Time latex Allergy Hives Verified 05/31/19 19:03 Date of admission: 05/31/19 21:53 Primary care physician: Vandana Cerna DO Consults: 05/31/19 22:46 Consult to Pastoral Services [CONS] Routine Comment: 06/01/19 06:00 Consult to Physician [CONS] Routine Consulting Provider: Michael Lozano Reason for Consult: partial SBO Call Completed: No 06/02/19 02:02 Consult to Electronic Gluing Machine Operator [CONS] Routine Reason for SW Consult: needs better Medicare advantage plan. Has no dental plan. - Constitutional Vitals: Temp Pulse Resp BP Pulse Ox 36.7 C 68 16 121/63 98 06/02/19 10:22 06/02/19 10:22 06/02/19 10:22 06/02/19 10:22 06/02/19 10:22 Exam: General Appearance: Appearing as age, well-nourished in no acute distress. Head: Atraumatic normocephalic Skin: Normal texture, normal turgor, warm, dry. dry mucous membranes Eyes: Conjunctivae not pale with no erythema, drainage, or ulcers. Anicteric. Neck: No Lymphadenopathy in the anterior/posterior cervical chain. No thyromegaly, masses or ulcers. Trachea midline. Heart: RRR, grade 3 systolic murmurs. Capillary refill 5 seconds Lungs: No accessory muscle usage, lungs clear to auscultation bilaterally, no wheezes or crackles. Extremities: No pitting edema, No clubbing, No cyanosis. Abdomen: Soft, nontender, normal BS. Neuro: AOx3 with no new sensory loss or focal deficits. MSK: Strength 5/5 Upper extremity equal bilaterally. Strength 5/5 Lower extremity equal bilaterally - Patient Status Disposition: Home, Self-Care Condition: Good Functional capacity at discharge: independent ambulation Overall status at discharge: patient is back to baseline - Discharge Instructions Instructions: Diabetes Mellitus Type 2 in Adults (DC) Follow Up With: Vandana Cerna DO [Primary Care Provider] - - Diet and Activity Activity: increase activity as tolerated, resume usual activities as tolerated Diet: diabetic diet
[2019-06-02] MEDS ORDERED: FLU Vac QV 19-20 (6Month+)/PF 0.5 ML SYRINGE IM ONE (13:48)
== END 2019-06-02 14:30 | disposition home or self-care (01) ==
LOC: 3ANU 18:54 → EMEROOARM 18:54 → SUATTDRO 21:53 → 3ANU 22:25
PROVIDERS: ADMIT Internal Medicine; ATTEND Internal Medicine

== ENCOUNTER 2019-10-05 01:52 | Inpatient (IN) ==
[2019-10-05 02:25] LABS: Bilirubin,Urine Negative (Negative); Blood,Urine Negative (Negative); Clarity,Urine Clear (Clear); Color,Urine Yellow (Yellow); Glucose,Urine (UA) Normal (Normal); Ketones,Urine Negative (Negative); Leukocyte Esterase,Urine Moderate (Negative); Nitrite,Urine Negative (Negative); PH,Urine 5.5 pH Units (5.0-8.0); Protein,Urine Negative (Neg-Trace); Specific Gravity,Urine 1.019 (1.010-1.025); Urobilinogen,Urine Normal (Normal)
[2019-10-05 02:26] LABS: Bacteria,Urine None Seen per hpf (None-Few); Hyaline Casts,Urine None Seen per lpf (None-Few); RBC,Urine 0-3 per hpf (0-3); Squamous Epithelial Cell,Urine Many per lpf (None-Few)
[2019-10-05 02:28] LABS: Basophils # 0.1 K/mcL (0.0-0.2); Basophils % 0.8 %; Eosinophils # 0.1 K/mcL (0.0-0.6); Eosinophils % 1.1 %; Hematocrit 37.7 % (35.3-44.9); Hemoglobin 12.4 g/dL (11.5-15.4); Immature Granulocytes % 0.7 % (0-4); Lymphocytes # 1.5 K/mcL (0.6-4.6); Lymphocytes % 11.7 %; Mean Corpuscular HGB Conc 32.9 g/dL (31.6-35.5); Mean Corpuscular Hemoglobin 27.3 pg (28.0-33.3); Mean Platelet Volume 10.2 fL (9.4-12.4); Monocytes # 0.6 K/mcL (0.0-1.3); Monocytes % 4.4 %; Neutrophils # 10.3 K/mcL (1.6-8.9); Platelet Count 403 K/mcL (140-400); Red Blood Count 4.54 M/mcL (3.82-4.97); Red Cell Distribution Width 12.8 % (11.5-14.5); Segmented Neutrophils % 81.3 %; White Blood Count 12.6 K/mcL (4.3-11.1)
[2019-10-05 02:47] LABS: Alanine Aminotransferase 16 Units/L (7-52); Albumin/Globulin Ratio 1.3 (1.1-2.2); Alkaline Phosphatase 95 Units/L (34-104); Aspartate Amino Transferase 20 Units/L (13-39); BUN/Creatinine Ratio 22 (6-26); Bilirubin,Direct 0.1 mg/dL (0.0-0.2); Bilirubin,Indirect 0.2 mg/dL (0.0-1.0); Bilirubin,Total 0.3 mg/dL (0.3-1.0); Blood Urea Nitrogen 17 mg/dL (8-23); Calcium 9.7 mg/dL (8.6-10.3); Carbon Dioxide 23 mEq/L (23-29); Chloride 102 mEq/L (98-107); Globulin 3.2 g/dL (2.4-3.5); Glucose 156 mg/dL (70-105); Lipase 13 Units/L (11-82); Osmolality,Calculated 287 (280-300); Potassium 3.8 mEq/L (3.5-5.1); Sodium 136 mEq/L (136-145); Total Protein 7.2 g/dL (6.4-8.9); eGFR For African Americans > 60 (> 60); eGFR For Non-African Americans > 60 (> 60)
[2019-10-05] MEDS ORDERED: Ondansetron 4 MG/2 ML VIAL IVP ONE (03:08)
[2019-10-05] MEDS ORDERED: 0.9 % Sodium Chloride 500 ML IVC ONE (03:08)
[2019-10-05] MEDS ORDERED: *HR* HYDROmorphone (PF) 1 MG/ML SYRINGE IVP ONE (03:25)
[2019-10-05] MEDS ORDERED: Levothyroxine Sodium 100 MCG VIAL IVP SCH (09:00)
[2019-10-05] MEDS: Ringers Solution, Lactated 1,000 ML IVC SCH (09:38)
[2019-10-05] MEDS: *HR* Metoprolol 5 MG/5 ML VIAL IVP SCH ×2 (09:39→22:04)
[2019-10-05] MEDS ORDERED: Ondansetron 4 MG/2 ML VIAL IVP PRN (09:43)
[2019-10-05] MEDS: *HR* Heparin 5,000 UNIT/ML VIAL SQ SCH ×2 (14:54→22:04)
[2019-10-05] MEDS: Insulin LISPRO 300 UNITS/3 ML VIAL SQ SCH ×2 (14:59→17:35)
[2019-10-05] MEDS: GI Cocktail 40 ML EACH PO ONE (22:29)
[2019-10-06] MEDS: Ringers Solution, Lactated 1,000 ML IVC SCH ×2 (01:02→23:18)
[2019-10-06] MEDS: Insulin LISPRO 300 UNITS/3 ML VIAL SQ SCH ×4 (01:03→17:12)
[2019-10-06 05:06] LABS: Basophils # 0.1 K/mcL (0.0-0.2); Basophils % 0.8 %; Eosinophils # 0.1 K/mcL (0.0-0.6); Eosinophils % 0.8 %; Hemoglobin 11.3 g/dL (11.5-15.4); Immature Granulocytes % 0.7 % (0-4); Lymphocytes # 1.8 K/mcL (0.6-4.6); Lymphocytes % 17.9 %; Mean Corpuscular HGB Conc 32.3 g/dL (31.6-35.5); Mean Corpuscular Hemoglobin 27.6 pg (28.0-33.3); Mean Corpuscular Volume 85.6 fL (83.0-100.0); Mean Platelet Volume 10.3 fL (9.4-12.4); Monocytes # 0.7 K/mcL (0.0-1.3); Monocytes % 6.6 %; Neutrophils # 7.4 K/mcL (1.6-8.9); Platelet Count 352 K/mcL (140-400); Red Blood Count 4.09 M/mcL (3.82-4.97); Red Cell Distribution Width 13.1 % (11.5-14.5); Segmented Neutrophils % 73.2 %; White Blood Count 10.1 K/mcL (4.3-11.1)
[2019-10-06 05:22] LABS: BUN/Creatinine Ratio 22 (6-26); Blood Urea Nitrogen 17 mg/dL (8-23); Calcium 8.4 mg/dL (8.6-10.3); Carbon Dioxide 22 mEq/L (23-29); Chloride 104 mEq/L (98-107); Glucose 129 mg/dL (70-105); Osmolality,Calculated 291 (280-300); Potassium 3.4 mEq/L (3.5-5.1); Sodium 139 mEq/L (136-145); eGFR For African Americans > 60 (> 60); eGFR For Non-African Americans > 60 (> 60)
[2019-10-06] MEDS: *HR* Heparin 5,000 UNIT/ML VIAL SQ SCH ×2 (05:57→15:51)
[2019-10-06] MEDS: Chloraseptic Spray 177 ML BOTTLE MM PRN ×2 (05:57→10:29)
[2019-10-06] MEDS ORDERED: Ringers Solution, Lactated 500 ML IVC ONE (07:31)
[2019-10-06] MEDS: *HR* Metoprolol 5 MG/5 ML VIAL IVP SCH ×3 (09:07→23:18)
[2019-10-06] MEDS: Levothyroxine Sodium 100 MCG VIAL IVP SCH (09:09)
[2019-10-06] MEDS: GI Cocktail 40 ML EACH PO ONE (10:27)
[2019-10-06] MEDS ORDERED: GI Cocktail 40 ML EACH PO ONE (10:30)
[2019-10-06 22:09] LABS: Hematocrit 35.4 % (35.3-44.9)
[2019-10-07] MEDS: Insulin LISPRO 300 UNITS/3 ML VIAL SQ SCH ×4 (00:30→17:41)
[2019-10-07] MEDS: *HR* Metoprolol 5 MG/5 ML VIAL IVP SCH ×2 (03:13→07:55)
[2019-10-07] MEDS: Pantoprazole 40 MG VIAL IVP SCH ×2 (05:50→17:44)
[2019-10-07 06:31] LABS: BUN/Creatinine Ratio 17 (6-26); Blood Urea Nitrogen 11 mg/dL (8-23); Calcium 8.6 mg/dL (8.6-10.3); Carbon Dioxide 20 mEq/L (23-29); Chloride 102 mEq/L (98-107); Glucose 128 mg/dL (70-105); Osmolality,Calculated 283 (280-300); Potassium 3.7 mEq/L (3.5-5.1); Sodium 136 mEq/L (136-145); eGFR For African Americans > 60 (> 60); eGFR For Non-African Americans > 60 (> 60)
[2019-10-07] MEDS ORDERED: Ondansetron 4 MG/2 ML VIAL IVP ONE (07:05)
[2019-10-07] MEDS: Levothyroxine Sodium 100 MCG VIAL IVP SCH (07:56)
[2019-10-07] MEDS ORDERED: E-Z-PAQUE (BARIUM SULF) SUSP 1 BOTTLE PO ONE (09:24)
[2019-10-07] MEDS ORDERED: PANTOPRAZOLE SODIUM PO SCH (11:15)
[2019-10-07] MEDS ORDERED: *HR* Metoprolol 5 MG/5 ML VIAL IVP PRN (11:19)
[2019-10-07] MEDS: hydroCHLOROthiazide 25 MG TABLET PO SCH (13:28)
[2019-10-07] MEDS: Lisinopril 20 MG TABLET PO SCH ×2 (13:28→23:00)
[2019-10-07] MEDS: Metoprolol XL (24 HR) Succ 50 MG TAB.ER.24H PO SCH (13:28)
[2019-10-07] MEDS: amLODIPine 5 MG TABLET PO SCH (13:29)
[2019-10-07] MEDS: Ringers Solution, Lactated 1,000 ML IVC SCH (23:02)
[2019-10-08] MEDS: Insulin LISPRO 300 UNITS/3 ML VIAL SQ SCH ×3 (00:34→14:04)
[2019-10-08] MEDS: Pantoprazole 40 MG VIAL IVP SCH (06:00)
[2019-10-08] MEDS ORDERED: Levothyroxine 25 MCG TABLET PO SCH (06:30)
[2019-10-08] MEDS: amLODIPine 5 MG TABLET PO SCH (08:59)
[2019-10-08] MEDS: hydroCHLOROthiazide 25 MG TABLET PO SCH (08:59)
[2019-10-08] MEDS: Metoprolol XL (24 HR) Succ 50 MG TAB.ER.24H PO SCH (08:59)
[2019-10-08] MEDS ORDERED: Aspirin Enteric Coated 81 MG Tablet PO SCH (09:00)
[2019-10-08 10:27] VITALS: BP 146/63
== END 2019-10-08 15:24 | disposition home or self-care (01) | DRG 389 ==
LOC: EMEROOARM 01:52 → CDU 01:52 → SUATTDRO 05:09 → CDU 05:28 → 3ANU 10-06 16:47
PROVIDERS: ADMIT Family Medicine; ATTEND Internal Medicine